=== PATIENT | male | born 1970 | race Caucasian/White ===

== ENCOUNTER 2018-08-16 23:36 | Emergency (ER) | payer SELFPAY ==
[~2018-08-16] VITALS: Ht 188 cm; Wt 62.1 kg
--- OUTSIDE RECORDS SUMMARY | 2018-08-16 23:41 | XMS REPORT | CCD ---
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 Problems Unknown or Not Available. Procedures Unknown or Not Available. Results Unknown or Not Available. Encounters Encounter Diagnosis Diagnosis Code Start Date Essential (primary) hypertension I10 08/15/2016 Function Status Unknown or Not Available. History of Immunizations Unknown or Not Available. Plan of Treatment Unknown or Not Available. Social History Smoking Status Code Start Date End Date Current every day smoker [id number] Vital Signs Unknown or Not Available. Function Status Unknown or Not Available. Goals Unknown or Not Available. ASSESSMENTS Unknown or Not Available. Health Concerns Section Unknown or Not Available.
--- OUTSIDE RECORDS SUMMARY | 2018-08-16 23:41 | XMS REPORT | Continuity of Care Document ---
Author Author [facility] Organization [facility] Address Unknown Phone Unavailable Allergies There is no data. Medications There is no data. Problems There is no data. Procedures There is no data. Results There is no data. Encounters ACCT No. Visit Date/Time Discharge Status Pt. Type Provider Facility Loc./Unit Complaint [id number] 08/20/2014 16:13:46 08/20/2014 23:59:59 [facility] Outpatient Lorena Schreiber [id number] 10/28/2013 09:29:07 10/28/2013 23:59:59 [facility] Outpatient Lorena Schreiber [id number] 07/29/2018 15:40:00 07/29/2018 23:59:59 [facility] Outpatient [facility]
[2018-08-17] MEDS ORDERED: OLANZapine 5 MG ODT (ZyPREXA ZYDIS) PO ONE (00:15)
--- NOTE | 2018-08-17 00:22 | NUR ---
Patient presented to the ER tonjose with a laceration to the forhead as well as the left wrist. During the patients initial assessment he advised that he has a significant psychiatric history and was admitted in september for intense inpatient psychiatric care. He advised that he has been admitted several times over the years and has had approximately 10 significant suicidal attempts. He advised nursing staff that he has an appointment scheduled on September 03 at [facility] in [place] for evaluation and further medication management. He advised he was originally scheduled to be seen prior to this date but that his appointment was pushed back and that he has been without his medication for approximately 1-2 weeks. He advised that he has been taught previous copeing mechanisms but that they have been ineffective and that he has been experiencing hallucinations. The patient presents dishevled and unkempt and is tearful while he is explaining his current state. He advised that he is visualizing people looking at him from around corners. He advises that the people tell him things about them and that they are emobotic regrets. He advises that they are sometimes happy to see him but tonight they were angry with him and that sometimes they throw things at him and attempt to harm him. The patient is currently staying with close friends who have remained at the bedside with him since arrival to the ER. They advised when they came home this evening that they found him with the laceration to his head and wrist. They advise that they found a knife in the bathroom and state he advised them that he was scared. The patient states that yesterday he was walking home at night and became lost as he was experiencing hallucinations at that time. He advised when he did find the residence that he was afraid to go inside because he was afraid the people he has been visualizing would harm him. When asked if the patient was having thoughts of killing himself he advised that Saturday he had had thoughts of ending his life but fell asleep and awoke feeling better. When asked if he had a plan he advised that he has always had a plan for years. He advised he considered taking several oxycotin in a hotel room but that he carried a razor blade on his person for approximately 4 days until his friends found it and removed it from his person. He advised that ultimately he knew the way he would have to do it would be to unzip his arms. The patient explained to his close friend in the room that he had periods where they made him feel better and that he did not wish to but that he is tired of being afraid. He advised that he has been struggling with his weight and that he has a history of anorexia and is unsure of the last time he ate.
[2018-08-17] MEDS ORDERED: LIDOCAINE 1% INJ 20 ML 20 ML VIAL ONE (00:24)
--- NOTE | 2018-08-17 00:24 | NUR ---
Patients close friend is Leticia Yan. He states she is the power of estate planning attorney for him. Her contact information is [phone].
[2018-08-17 00:25] LABS: BASOPHILS % (AUTO) 0 % (0-10); EOSINOPHILS % (AUTO) 0 % (0-10); HEMATOCRIT 42 % (40-54); HEMOGLOBIN 14.1 G/DL (13.3-17.7); LYMPHOCYTES # (AUTO) 1.1 X 10^3 (1.0-4.0); LYMPHOCYTES % (AUTO) 9 % (12-44); MEAN CORPUSCULAR HEMOGLOBIN 30 PG (25-34); MEAN CORPUSCULAR HGB CONC 34 G/DL (32-36); MEAN CORPUSCULAR VOLUME 90 FL (80-99); MEAN PLATELET VOLUME 8.2 FL (7.4-10.4); MONOCYTES # (AUTO) 0.9 X 10^3 (0.0-1.0); MONOCYTES % (AUTO) 8 % (0-12); NEUTROPHILS # (AUTO) 9.3 X 10^3 (1.8-7.8); NEUTROPHILS % (AUTO) 83 % (42-75); PLATELET COUNT 386 10^3/uL (130-400); WHITE BLOOD COUNT 11.3 10^3/uL (4.3-11.0)
--- NOTE | 2018-08-17 00:30 | NUR ---
The patient was provided a meal tray and advises the medication administration has helped. The patient appears to be more relaxed.
[2018-08-17 00:45] LABS: ALANINE AMINOTRANSFERASE 35 U/L (0-55); ALBUMIN 5.1 GM/DL (3.2-4.5); ALKALINE PHOSPHATASE 93 U/L (40-136); BILIRUBIN,TOTAL 1.6 MG/DL (0.1-1.0); BUN/CREATININE RATIO 29; CALCIUM 10.9 MG/DL (8.5-10.1); CARBON DIOXIDE 23 MMOL/L (21-32); CHLORIDE 102 MMOL/L (98-107); CREATININE SERUM 0.99 MG/DL (0.60-1.30); GFR ESTIMATED > 60; GLUCOSE 69 MG/DL (70-105); POTASSIUM 3.7 MMOL/L (3.6-5.0); SALICYLATE < 5.0 MG/DL (5.0-20.0); SODIUM 140 MMOL/L (135-145); TOTAL PROTEIN 8.5 GM/DL (6.4-8.2)
[2018-08-17 00:59] LABS: ACETAMINOPHEN < 10 UG/ML (10-30)
[2018-08-17 01:03] LABS: BILIRUBIN,URINE NEGATIVE (NEGATIVE); CLARITY,URINE SLIGHTLY CLOUDY; COLOR,URINE YELLOW; GLUCOSE, URINE (UA) NEGATIVE (NEGATIVE); KETONES,URINE 4+ (NEGATIVE); LEUKOCYTE ESTERASE ,URINE 2+ (NEGATIVE); NITRITE,URINE NEGATIVE (NEGATIVE); PH,URINE 5 (5-9); PROTEIN,URINE 3+ (NEGATIVE); UROBILINOGEN,URINE NORMAL (NORMAL)
[2018-08-17 01:05] LABS: TSH (THYROID ANALYZER) 1.63 UIU/ML (0.35-4.94)
--- NOTE | 2018-08-17 01:07 | ED Psychosocial ---
General Chief Complaint: Suicidal Ideation Risk Stated Complaint: FACE BLEEDING Nursing Triage Note: Patient presented to the ER secondary to a wound to his forhead as well as his left wrist. See notes for further documentation. Source: patient (PT IS LIMITED/DIFFICULT HISTORIAN), other (FEMALE WITH PT) Exam Limitations: other (PT WITH RAPID ERRATIC SPEECH AND HAVING DIFFICULTY FORMING THOUGHTS AND COMPLETING SENTENCES) History of Present Illness Date Seen by Provider: Aug 16, 2018 Time Seen by Provider: 23:55 Initial Comments PT ARRIVES VIA POV FROM HOME WITH FEMALE PT HAS BEEN LIVING WITH THIS FEMALE AND HER FAMILY, INCLUDING HER SMALL CHILDREN , SINCE APRIL. PRIOR TO THAT, PT HAD BEEN LIVING IN [place] PT STATES HE HAD "A PARANORMAL EXPERIENCE" TODAY "I HAVE BIPOLAR DISORDER AND I HAD A BREAK AND I'M DISSOCIATED" PT HAS LINEAR LACERATIONS TO CENTER OF FOREHEAD AND TO LEFT WRIST. WHEN ASKED WHAT HAPPENED, PT STATES "GOT HIT BY SOMETHING" "ONE OF THE THINGS THREW A POT BUT I KNOW THAT THEY AREN'T REAL SO I DON'T KNOW WHAT HAPPENED" WHEN ASKED WHAT HAPPENED TO HIS WRIST, FIRST STARTED TO TALK ABOUT A PIECE OF MIRROR IN THE BATHROOM, THEN STATES HE DOES NOT KNOW WHAT HAPPENED. FEMALE WITH PT, REPORTS THAT HER FAMILY MEMBER FOUND A KNIFE IN THE BATHROOM. PT FIRST ADMITS THAT HE KNEW THERE WAS A KNIFE IN THE BATHROOM, BECAUSE "THEY WERE AFTER ME" AND STATES HE DOESN'T KNOW WHAT HAPPENED, BUT THEN STATES "I REMEMBER NOT WANTING TO BE SCARED ANYMORE" PT STATES "I'M NOT A THREAT TO MYSELF ANYMORE" PT STATES HE HAS HAD "10 SERIOUS ATTEMPTS" TO KILL HIMSELF, MOST INVOLVING OVERDOSES, BUT HAS CUT HIS WRISTS BEFORE, WELL. HE STATES HE HAS HAD " HALF A DOZEN LESS SERIOUS ATTEMPTS--I JUST DIDN'T CARE IF I LIVED OR " STATES HE HAS CONSTANT SUICIDAL THOUGHTS, BUT HAS NOT ACTED ON THEM IN A LONG TIME. STATES HE WAS HAVING ALOT OF SUICIDAL THOUGHTS THIS PAST SATURDAY, BUT DID NOT ACT ON THEM LAST ADMIT FOR MENTAL HEALTH WAS IN SEPTEMBER 2017. AT [facility]. 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 STATES HE HAS MISSED SEVERAL APPOINTMENTS, AND THEY DID EXTEND HIM A COUPLE WEEKS OF MEDICATIONS, BUT HE RAN OUT OF THOSE 2 WEEKS AGO. PT STATES HE HAS A NEW PT APPOINTMENT WITH PSYCH AT [facility] ON 09/03/18. PT ALSO STATES HE IS ANOREXIC AND SOMETIMES HE JUST FORGETS TO EAT, OR HAS FORGOTTEN IF HE HAS EATEN OR NOT. PCP: NONE PSYCH: HAS APPOINTMENT WITH [facility] 09/03/18 Allergies and Home Medications Allergies Coded Allergies: pregabalin (Verified Allergy, Unknown, 08/17/18) Patient Home Medication List Home Medication List Reviewed: Yes Review of Systems Constitutional: no symptoms reported EENTM: see HPI Respiratory: no symptoms reported Cardiovascular: no symptoms reported Gastrointestinal: no symptoms reported Genitourinary: no symptoms reported Musculoskeletal: no symptoms reported Skin: see HPI Psychiatric/Neurological: See HPI, Anxiety; Denies Headache, Denies Numbness, Denies Paresthesia, Denies Tingling, Denies Weakness Past Kbyufux-Olmssh-Issnto Hx Patient Social History Alcohol Use: Past History (HX OF ABUSE--"ALOT" --WILL NOT STATE HOW MUCH, CLAIMS NO ETOH SINCE 02/2018) Recreational Drug Use: Yes (METH, "EVERYTHING EXCEPT OPIATES" + IV USE) Drug of Choice: METH, "EVERYTHING EXCEPT OPIATES" + IV USE Smoking Status: Current Everyday Smoker (1 PPD) Recent Foreign Travel: No Contact w/Someone Who Travel: No Recent Infectious Disease Expo: No Recent Hopitalizations: Yes (inpatient psychiatric in september 2017 ) Physical Abuse: No Sexual Abuse: No Seasonal Allergies Seasonal Allergies: No Past Medical History Surgeries: Yes (LEFT LOWER LEG FX/ORIF) Adenoidectomy, Orthopedic, Tonsillectomy Respiratory: No Cardiac: Yes (NO LONGER ON MEDICATIONS) Hypertension Neurological: Yes (SEIZURES X 3--FELT TO BE FROM DRUG WITH DRAWL--DEPAKOTE, PER PT) Seizure Disorder Genitourinary: No Gastrointestinal: No Musculoskeletal: Yes (LEFT LOWER LEG FX/ORIF) Fractures Endocrine: No HEENT: No Cancer: No Psychosocial: Yes (HALLUCINATIONS; BORDERLINE PERSONALITY DISORDER; ANOREXIA; POLYSUBSTANCE ABUSE) Eating Disorder, Anxiety, Suicide Attempts, Bipolar, Personality Disorder Integumentary: No Blood Disorders: No Adverse Reaction/Blood Tranf: No Physical Exam Vital Signs - First Documented 08/17/18 00:22 Temp 97.5 Pulse 108 Resp 18 B/P (MAP) 154/88 (110) Pulse Ox 99 O2 Delivery Room Air Capillary Refill : Less Than 3 Seconds Height, Weight, BMI Height: 6'2.00" Weight: 137lbs. oz. 62.623940ud; BMI Method:Stated General Appearance: WD/WN, no apparent distress, other (MILDLY ANXIOUS. TALKS RAPIDLY, NON-STOP, RABLES ON, DISCONNECTED THOUGHTS, UNABLE TO COMPLETE SENTENCES. UNABLE TO KEEP ON SUBJECT. 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 HAS MULTIPLE LINEAR SCARS TO LEFT ANTERIOR WRIST. ) Procedures/Interventions Wound Location: Face, Upper Extremities Other Wound Location FOREHEAD AND LEFT WRIST Wound Length (cm): 3.5 Wound's Depth, Shape: linear, sub Q Wound Explored: clean Anesthesia: 1% Lidocaine Staple Repair: Stapler 35W Other Closure Supply: Wound Adhesive Progress LACERATIONS CLEANSED WITH BETASEPT FOREHEAD LACERATION IS VERTICAL IN CENTER OF FOREHEAD. 2 CM LONG. NO ACTIVE BLEEDING. NO FOREIGN BODY CLOSED WITH WOUND ADHESIVE LEFT ANTERIOR WRIST LACERATION IS LINEAR AND VERTICAL, 1 1/2 CM LONG. NO ACTIVE BLEEDING. NO FOREIGN BODY INJECTED WITH 1% LIDOCAINE PLAIN CLOSED WITH # 3 ISAIAS DRESSED WITH A BANDAID. Progress/Results/Core Measures Results/Orders Lab Results Laboratory Tests Test 08/17/18 00:17 08/17/18 00:55 Range/Units White Blood Count 11.3 H 4.3-11.0 10^3/uL Red Blood Count 4.65 4.35-5.85 10^6/uL Hemoglobin 14.1 13.3-17.7 G/DL Hematocrit 42 40-54 % Mean Corpuscular Volume 90 80-99 FL Mean Corpuscular Hemoglobin 30 25-34 PG Mean Corpuscular Hemoglobin Concent 34 32-36 G/DL Red Cell Distribution Width 14.0 10.0-14.5 % Platelet Count 386 130-400 10^3/uL Mean Platelet Volume 8.2 7.4-10.4 FL Neutrophils (%) (Auto) 83 H 42-75 % Lymphocytes (%) (Auto) 9 L 12-44 % Monocytes (%) (Auto) 8 0-12 % Eosinophils (%) (Auto) 0 0-10 % Basophils (%) (Auto) 0 0-10 % Neutrophils # (Auto) 9.3 H 1.8-7.8 X 10^3 Lymphocytes # (Auto) 1.1 1.0-4.0 X 10^3 Monocytes # (Auto) 0.9 0.0-1.0 X 10^3 Eosinophils # (Auto) 0.0 0.0-0.3 10^3/uL Basophils # (Auto) 0.0 0.0-0.1 10^3/uL Sodium Level 140 135-145 MMOL/L Potassium Level 3.7 3.6-5.0 MMOL/L Chloride Level 102 98-107 MMOL/L Carbon Dioxide Level 23 21-32 MMOL/L Anion Gap 15 H 5-14 MMOL/L Blood Urea Nitrogen 29 H 7-18 MG/DL Creatinine 0.99 0.60-1.30 MG/DL Estimat Glomerular Filtration Rate > 60 BUN/Creatinine Ratio 29 Glucose Level 69 L 70-105 MG/DL Calcium Level 10.9 H 8.5-10.1 MG/DL Corrected Calcium 8.5-10.1 MG/DL Total Bilirubin 1.6 H 0.1-1.0 MG/DL Aspartate Amino Transf (AST/SGOT) 44 H 5-34 U/L Alanine Aminotransferase (ALT/SGPT) 35 0-55 U/L Alkaline Phosphatase 93 40-136 U/L Total Protein 8.5 H 6.4-8.2 GM/DL Albumin 5.1 H 3.2-4.5 GM/DL TSH [place] Testing 1.63 0.35-4.94 UIU/ML Salicylates Level < 5.0 L 5.0-20.0 MG/DL Acetaminophen Level < 10 L 10-30 UG/ML Serum Alcohol < 10 <10 MG/DL Urine Color YELLOW Urine Clarity SLIGHTLY CLOUDY Urine pH 5 5-[address] 1.030 H 1.016-1.022 Urine Protein 3+ H NEGATIVE Urine Glucose (UA) NEGATIVE NEGATIVE Urine Ketones 4+ H NEGATIVE Urine Nitrite NEGATIVE NEGATIVE Urine Bilirubin NEGATIVE NEGATIVE Urine Urobilinogen NORMAL NORMAL MG/DL Urine Leukocyte Esterase 2+ H NEGATIVE Urine RBC (Auto) 2+ H NEGATIVE Urine RBC 2-5 H /HPF Urine WBC 25-50 H /HPF Urine Squamous Epithelial Cells 0-2 /HPF Urine Crystals NONE /LPF Urine Bacteria MODERATE H /HPF Urine Casts PRESENT /LPF Urine Hyaline Casts 2-5 H /LPF Urine Mucus LARGE H /LPF Urine Culture Indicated YES Urine Opiates Screen NEGATIVE NEGATIVE Urine Oxycodone Screen NEGATIVE NEGATIVE Urine Methadone Screen NEGATIVE NEGATIVE Urine Propoxyphene Screen NEGATIVE NEGATIVE Urine Barbiturates Screen NEGATIVE NEGATIVE Ur Tricyclic Antidepressants Screen NEGATIVE NEGATIVE Urine Phencyclidine Screen NEGATIVE NEGATIVE Urine Amphetamines Screen POSITIVE H NEGATIVE Urine Methamphetamines Screen POSITIVE H NEGATIVE Urine Benzodiazepines Screen NEGATIVE NEGATIVE Urine Cocaine Screen NEGATIVE NEGATIVE Urine Cannabinoids Screen NEGATIVE NEGATIVE My Orders Orders - REGINA GOLDSMITH DO Urinalysis (08/17/18 00:08) Thyroid Analyzer (08/17/18 00:08) Drug Screen Stat (Urine) (08/17/18 00:08) Cbc With Automated Diff (08/17/18 00:08) Comprehensive Metabolic Panel (08/17/18 00:08) Alcohol (08/17/18 00:08) Acetaminophen (08/17/18 00:08) Salicylate (08/17/18 00:08) Ekg Tracing (08/17/18 00:08) Olanzapine Orally Dissolve Tab (Zyprexa (08/17/18 00:15) Lidocaine 1% Inj 20 Ml (Xylocaine 1% Inj (08/17/18 00:24) Urine Culture (08/17/18 00:55) Levofloxacin Tablet (Levaquin Tablet) (08/17/18 02:00) Chlamydia Trachomatis Urine (08/17/18 01:53) Neis Jourdan Dna Urine Test (08/17/18 01:53) Medications Given in ED Current Medications Medications Dose Ordered Sig/Noe Route Start Time Stop Time Status Last Admin Dose Admin Levofloxacin 500 mg ONCE ONCE PO 08/17/18 02:00 08/17/18 02:01 UNV 08/17/18 02:03 500 MG Lidocaine HCl 20 ml STK-MED ONCE .ROUTE 08/17/18 00:24 08/17/18 00:28 DC 08/17/18 01:09 20 ML Olanzapine 10 mg ONCE ONCE PO 08/17/18 00:15 08/17/18 00:18 DC 08/17/18 00:19 10 MG Vital Signs/I&O 08/17/18 00:22 Temp 97.5 Pulse 108 Resp 18 B/P (MAP) 154/88 (110) Pulse Ox 99 O2 Delivery Room Air Blood Pressure Mean: 110 Progress Progress Note : Progress Note GIVEN ZYPREXA 10 MG--PT STATES " IT WILL WORK PERFECTLY IN 20 MINUTES AND HE WILL BE FINE". PT REMAINED COOPERATIVE, WITH NO ACTING OUT PT DID HAVE SOME IMPROVEMENT IN ABILITY TO COMPLETE THOUGHT PROCESSES, ABLE TO COMPLETE SENTENCES, SPEECH IS LESS ERRATIC, AND DID NOT MENTION ANY HALLUCINATIONS FOR REMAINDER OF ER STAY PT IS AGREEABLE TO TRANSFER TO INPATIENT PSYCH FACILITY. PT GIVEN FLUIDS TO DRINK AND A MEAL TRAY Initial ECG Impression Date: Aug 17, 2018 Initial ECG Impression Time: 00:26 Initial ECG Rate: 92 Initial ECG Rhythm: Normal Sinus Initial ECG Comparisson: No Previous ECG Available Departure Communication (Admissions) 0130--CALLED [facility]. THEY DO NOT TAKE ACUTE MENTAL HEALTH, ONLY LONG-TERM MENTAL HEALTH. 0135--CALLED [facility], HAVE A MALE MENTAL HEALTH BED, PAGING PSYCHIATRIST GRANTS ANALYST. Impression Primary Impression: Psychosis Additional Impressions: Hallucinations Jane FOREHEAD LACERATION OF UNKNOWN CAUSE LEFT WRIST LACERATION OF UNKNOWN CAUSE CHRONIC SUICIDAL IDEATION Non-compliance Illicit drug use Self-harm UTI (urinary tract infection) Mild dehydration Disposition: 65 XFER TO PSYCH HOSP/UNIT Condition: Stable Transfer Transfer Facility: [facility] Method of Transfer: Private Vehicle (Way[employer]) Departure-Patient Inst. Referrals: NO,LOCAL PHYSICIAN (PCP/Family) Primary Care Physician REGINA GOLDSMITH DO Aug 17, 2018 01:07
[2018-08-17 01:12] LABS: BACTERIA,URINE MODERATE /HPF; SQUAMOUS EPITHELIAL CELL,UR 0-2 /HPF; WBC,URINE 25-50 /HPF
[2018-08-17 01:14] LABS: AMPHETAMINE SCREEN, URINE POSITIVE (NEGATIVE); BARBITURATE SCREEN URINE NEGATIVE (NEGATIVE); BENZODIAZEPINES SCREEN URINE NEGATIVE (NEGATIVE); CANNABINOID SCREEN, URINE NEGATIVE (NEGATIVE); COCAINE SCREEN URINE NEGATIVE (NEGATIVE); METHADONE STAT NEGATIVE (NEGATIVE); METHAMPHETAMINE SCREEN URINE S POSITIVE (NEGATIVE); OPIATE SCREEN URINE NEGATIVE (NEGATIVE); OXYCODONE STAT NEGATIVE (NEGATIVE); PROPOXYPHENE STAT NEGATIVE (NEGATIVE); TRICYCLIC ANTIDEPRESSANTS SCRE NEGATIVE (NEGATIVE)
[2018-08-17] MEDS ORDERED: LEVOFLOXACIN 500 MG TAB (LEVAQUIN) ONE (02:00)
[2018-08-17] MEDS ORDERED: LEVOFLOXACIN 500 MG TAB (LEVAQUIN) PO ONE (02:00)
--- NOTE | 2018-08-17 02:33 | NUR ---
Secure transported arrival to the ER.
[2018-08-17 02:44] VITALS: BP 123/78
== END 2018-08-17 02:45 ==
LOC: EDUNIT# 23:36 → ER 23:39
DX: S01.81XA Laceration without foreign body of other part of head, initial encounter (principal); S61.512A Laceration without foreign body of left wrist, initial encounter; F30.9 Manic episode, unspecified; R45.851 Suicidal ideations; N39.0 Urinary tract infection, site not specified; E86.0 Dehydration; I10 Essential (primary) hypertension; G40.909 Epilepsy, unspecified, not intractable, without status epilepticus; F41.9 Anxiety disorder, unspecified; F31.9 Bipolar disorder, unspecified; F15.10 Other stimulant abuse, uncomplicated; F12.10 Cannabis abuse, uncomplicated; F17.200 Nicotine dependence, unspecified, uncomplicated; Z91.5 Personal history of self-harm; Z88.8 Allergy status to other drugs, medicaments and biological substances; Z91.19 Patient's noncompliance with other medical treatment and regimen; Z90.89 Acquired absence of other organs; Z98.890 Other specified postprocedural states; W22.09XA Striking against other stationary object, initial encounter; X78.1XXA Intentional self-harm by knife, initial encounter
CPT/HCPCS: 36415; 80053; 80306; 80320; 80329; 81000; 84443; 85025; 87088; 87491; 87591; 93005

== ENCOUNTER 2019-12-31 05:42 | Outpatient (RCR) | payer OTHER ==
[~2019-12-31] VITALS: Ht 188 cm; Wt 76.8 kg
[~2019-12-31 05:42] MED LIST: ACET-2267 PO; DIPH25CA79 PO; OLAN10TA3 PO; PANT40SU PO; SUCR1TAB PO
[2020-01-05] MEDS ORDERED: SUCR1TAB36 PO (10:39)
[2020-01-05] MEDS ORDERED: PANT40TA2 PO (10:39)
== END 2019-12-31 15:05 | disposition home or self-care (01) ==
LOC: PREOP 05:42
PROVIDERS: ATTEND Surgery
DX: Z01.812 Encounter for preprocedural laboratory examination (principal); K92.1 Melena; Z20.828 Contact with and (suspected) exposure to other viral communicable diseases
CPT/HCPCS: 87635

== ENCOUNTER 2020-01-05 07:57 | Day surgery (SDC) | payer OTHER ==
[~2020-01-05] VITALS: Ht 188 cm; Wt 76.8 kg
[2020-01-05 08:00] VITALS: BP 145/98
[2020-01-05] MEDS ORDERED: LACTATED RINGERS 1,000 ML IV STA (08:07)
[2020-01-05] MEDS ORDERED: LACTATED RINGERS 1,000 ML IV ONE (08:08)
--- NOTE | 2020-01-05 08:16 | Progress Note-Pre Operative ---
Pre-Operative Progress Note H&P Reviewed The H&P was reviewed, patient examined and no changes noted. Date Seen by Provider: Jan 05, 2020 Time Seen by Provider: 08:16 Date H&P Reviewed: Jan 05, 2020 Time H&P Reviewed: 08:16 Pre-Operative Diagnosis: blood in stool, dysphagia TORO MATHIS DO Jan 05, 2020 08:16
--- OUTSIDE RECORDS SUMMARY | 2020-01-05 08:57 | XMS REPORT | Continuity of Care Document ---
Author Organization Unknown Address Unknown Phone Unavailable Allergies Active Description Code Type Severity Reaction Onset Reported/Identified Relationship to Patient Clinical Status Yes pregabalin [id number] Drug Allerg y Unknown N/A 08/17/2018 Yes codeine [id number] Drug Allergy Unknown Itching 10/29/2019 Yes Sulfa (Sulfonamide Antibiotics) [id number] Drug Allergy Unknown Vomiting 10/29/2019 Medications There is no data. Problems Date Dx Coded Attending Type Code Diagnosis Diagnosed By 06/20/1504 TORO MATHIS DO Ot K92. 1 MELENA 06/20/1504 TORO MATHIS DO Ot Z01.812 ENCOUNTER FOR PREPROCEDURAL LABORATORY E 06/20/1504 TORO MATHIS DO Ot Z20.828 CONTACT W AND EXPOSURE TO OTH VIRAL COMM 08/17/2018 REGINA GOLDSMITH DO Ot E86.0 DEHYDRATION 08/17/2018 REGINA GOLDSMITH DO Ot F12.10 CANNABIS ABUSE, UNCOMPLICATED 08/17/2018 REGINA GOLDSMITH DO Ot F15.10 OTHER STIMULANT ABUSE, UNCOMPLICATED 08/17/2018 REGINA GOLDSMITH DO Ot F17.200 NICOTINE DEPENDENCE, UNSPECIFIED, UNCOMP 08/17/2018 REGINA GOLDSMITH DO Ot F30.9 MANIC EPISODE, UNSPECIFIED 08/17/2018 REGINA GOLDSMITH DO Ot F31.9 BIPOLAR DISORDER, UNSPECIFIED 08/17/2018 REGINA GOLDSMITH DO Ot F41.9 ANXIETY DISORDER, UNSPECIFIED 08/17/2018 REGINA GOLDSMITH DO Ot G40.909 EPILEPSY, UNSP, NOT INTRACTABLE, WITHOUT 08/17/2018 REGINA GOLDSMITH DO Ot I10 ESSENTIAL (PRIMARY) HYPERTENSION 08/17/2018 REGINA GOLDSMITH DO Ot N39.0 URINARY TRACT INFECTION, SITE NOT SPECIF 08/17/2018 REGINA GOLDSMITH DO Ot R45.851 SUICIDAL IDEATIONS 08/17/2018 REGINA GOLDSMITH DO Ot S01.81X A LACERATION W/O FOREIGN BODY OF OTH PART 08/17/2018 REGINA GOLDSMITH DO Ot S61.512 A LACERATION WITHOUT FOREIGN BODY OF LEFT 08/17/2018 REGINA GOLDSMITH DO Ot W22.09X A STRIKING AGAINST OTHER STATIONARY OBJECT 08/17/2018 REGINA GOLDSMITH DO Ot X78.1XX A INTENTIONAL SELF-HARM BY KNIFE, INITIAL 08/17/2018 REGINA GOLDSMITH DO, Ot Z88.8 ALLERGY STATUS TO OT DRUG/MEDS/BIOL SUB 08/17/2018 REGINA GOLDSMITH DO Ot Z90.89 ACQUIRED ABSENCE OF OTHER ORGANS 08/17/2018 REGINA GOLDSMITH DO Ot Z91.19 PATIENT'S NONCOMPLIANCE W OT MEDICAL TR 08/17/2018 REGINA GOLDSMITH DO, Ot Z91.5 PERSONAL HISTORY OF SELF-HARM 08/17/2018 REGINA GOLDSMITH DO, Ot Z98.890 OTHER SPECIFIED POSTPROCEDURAL STATES 08/19/2018 REGINA GOLDSMITH DO Ot E86.0 DEHYDRATION 08/19/2018 REGINA GOLDSMITH DO Ot F12.10 CANNABIS ABUSE, UNCOMPLICATED 08/19/2018 REGINA GOLDSMITH DO Ot F15.10 OTHER STIMULANT ABUSE, UNCOMPLICATED 08/19/2018 REGINA GOLDSMITH DO Ot F17.200 NICOTINE DEPENDENCE, UNSPECIFIED, UNCOMP 08/19/2018 REGINA GOLDSMITH DO Ot F30.9 MANIC EPISODE, UNSPECIFIED 08/19/2018 REGINA GOLDSMITH DO Ot F31.9 BIPOLAR DISORDER, UNSPECIFIED 08/19/2018 AGUS REGINA JACKSON Ot F41.9 ANXIETY DISORDER, UNSPECIFIED 08/19/2018 REGINA GOLDSMITH DO Ot G40.909 EPILEPSY, UNSP, NOT INTRACTABLE, WITHOUT 08/19/2018 REGINA GOLDSMITH DO Ot I10 ESSENTIAL (PRIMARY) HYPERTENSION 08/19/2018 REGINA GOLDSMITH DO Ot N39.0 URINARY TRACT INFECTION, SITE NOT SPECIF 08/19/2018 REGINA GOLDSMITH DO Ot R45.851 SUICIDAL IDEATIONS 08/19/2018 REGINA GOLDSMITH DO Ot S01.81X A LACERATION W/O FOREIGN BODY OF OTH PART 08/19/2018 REGINA GOLDSMITH DO Ot S61.512 A LACERATION WITHOUT FOREIGN BODY OF LEFT 08/19/2018 REGINA GOLDSMITH DO Ot W22.09X A STRIKING AGAINST OTHER STATIONARY OBJECT 08/19/2018 REGINA GOLDSMITH DO Ot X78.1XX A INTENTIONAL SELF-HARM BY KNIFE, INITIAL 08/19/2018 REGINA GOLDSMITH DO Ot Z88.8 ALLERGY STATUS TO [facility] DRUG/MEDS/BIOL SUB 08/19/2018 REGINA GOLDSMITH DO Ot Z90.89 ACQUIRED ABSENCE OF OTHER ORGANS 08/19/2018 REGINA GOLDSMITH DO Ot Z91.19 PATIENT'S NONCOMPLIANCE W OT MEDICAL TR 08/19/2018 REGINA GOLDSMITH DO Ot Z91.5 PERSONAL HISTORY OF SELF-HARM 08/19/2018 REGINA GOLDSMITH DO Ot Z98.890 OTHER SPECIFIED POSTPROCEDURAL STATES 10/30/2019 HERNÁNDEZ DO, NAVID Ot D64.9 ANEMIA, UNSPECIFIED 10/30/2019 HERNÁNDEZ DO, NAVID Ot D72.82 9 ELEVATED WHITE BLOOD CELL COUNT, UNSPECI 10/30/2019 HERNÁNDEZ DO, NAVID Ot F17.20 0 NICOTINE DEPENDENCE, UNSPECIFIED, UNCOMP 10/30/2019 HERNÁNDEZ DO, NAVID Ot F31.9 BIPOLAR DISORDER, UNSPECIFIED 10/30/2019 HERNÁNDEZ DO, NAVID Ot F41.9 ANXIETY DISORDER, UNSPECIFIED 10/30/2019 HERNÁNDEZ DO, NAVID Ot F50.9 EATING DISORDER, UNSPECIFIED 10/30/2019 HERNÁNDEZ DO, NAVID Ot F60.9 PERSONALITY DISORDER, UNSPECIFIED 10/30/2019 HERNÁNDEZ DO, NAVID Ot G40.90 9 EPILEPSY, UNSP, NOT INTRACTABLE, WITHOUT 10/30/2019 HERNÁNDEZ DO, NAVID Ot I10 ESSENTIAL (PRIMARY) HYPERTENSION 10/30/2019 HERNÁNDEZ DO, NAVID Ot I21.4 NON-ST ELEVATION (NSTEMI) MYOCARDIAL INF 10/30/2019 HERNÁNDEZ DO, NAVID Ot K20.9 ESOPHAGITIS, UNSPECIFIED 10/30/2019 HERNÁNDEZ DO, NAVID Ot K92.0 HEMATEMESIS 10/30/2019 HERNÁNDEZ DO, NAVID Ot K92.2 GASTROINTESTINAL HEMORRHAGE, UNSPECIFIED 10/30/2019 HERNÁNDEZ DO, NAVID Ot R10.9 UNSPECIFIED ABDOMINAL PAIN 10/30/2019 HERNÁNDEZ DO, NAVID Ot R11.2 NAUSEA WITH VOMITING, UNSPECIFIED 10/30/2019 HERNÁNDEZ DO, NAVID Ot R12 HEARTBURN 10/30/2019 HERNÁNDEZ DO, NAVID Ot Z86.59 PERSONAL HISTORY OF OTHER MENTAL AND BEH 10/30/2019 HERNÁNDEZ DO, NAVID Ot Z91.5 PERSONAL HISTORY OF SELF-HARM 10/30/2019 HERNÁNDEZ DO, NAVID Ot D64.9 ANEMIA, UNSPECIFIED 10/30/2019 HERNÁNDEZ DO, NAVID Ot D72.82 9 ELEVATED WHITE BLOOD CELL COUNT, UNSPECI 10/30/2019 HERNÁNDEZ DO, NAVID Ot F17.20 0 NICOTINE DEPENDENCE, UNSPECIFIED, UNCOMP 10/30/2019 HERNÁNDEZ DO, NAVID Ot F31.9 BIPOLAR DISORDER, UNSPECIFIED 10/30/2019 HERNÁNDEZ DO, NAVID Ot F41.9 ANXIETY DISORDER, UNSPECIFIED 10/30/2019 HERNÁNDEZ DO, NAVID Ot F50.9 EATING DISORDER, UNSPECIFIED 10/30/2019 HERNÁNDEZ DO, NAVID Ot F60.9 PERSONALITY DISORDER, UNSPECIFIED 10/30/2019 HERNÁNDEZ DO, NAVID Ot G40.90 9 EPILEPSY, UNSP, NOT INTRACTABLE, WITHOUT 10/30/2019 HERNÁNDEZ DO, NAVID Ot I10 ESSENTIAL (PRIMARY) HYPERTENSION 10/30/2019 HERNÁNDEZ DO, NAVID Ot I21.4 NON-ST ELEVATION (NSTEMI) MYOCARDIAL INF 10/30/2019 HERNÁNDEZ DO, NAVID Ot K20.9 ESOPHAGITIS, UNSPECIFIED 10/30/2019 HERNÁNDEZ DO, NAVID Ot K92.0 HEMATEMESIS 10/30/2019 HERNÁNDEZ DO, NAVID Ot K92.2 GASTROINTESTINAL HEMORRHAGE, UNSPECIFIED 10/30/2019 HERNÁNDEZ DO, NAVID Ot R10.9 UNSPECIFIED ABDOMINAL PAIN 10/30/2019 HERNÁNDEZ DO, NAVID Ot R11.2 NAUSEA WITH VOMITING, UNSPECIFIED 10/30/2019 HERNÁNDEZ DO, NAVID Ot R12 HEARTBURN 10/30/2019 HERNÁNDEZ DO, NAVID Ot Z86.59 PERSONAL HISTORY OF OTHER MENTAL AND BEH 10/30/2019 HERNÁNDEZ DO, NAVID Ot Z91.5 PERSONAL HISTORY OF SELF-HARM 10/30/2019 HERNÁNDEZ DO, NAVID Ot D64.9 ANEMIA, UNSPECIFIED 10/30/2019 HERNÁNDEZ DO, NAVID Ot D72.82 9 ELEVATED WHITE BLOOD CELL COUNT, UNSPECI 10/30/2019 HERNÁNDEZ DO, NAVID Ot F17.20 0 NICOTINE DEPENDENCE, UNSPECIFIED, UNCOMP 10/30/2019 HERNÁNDEZ DO, NAVID Ot F31.9 BIPOLAR DISORDER, UNSPECIFIED 10/30/2019 HERNÁNDEZ DO, NAVID Ot F41.9 ANXIETY DISORDER, UNSPECIFIED 10/30/2019 HERNÁNDEZ DO, NAVID Ot F50.9 EATING DISORDER, UNSPECIFIED 10/30/2019 HERNÁNDEZ DO, NAVID Ot F60.9 PERSONALITY DISORDER, UNSPECIFIED 10/30/2019 HERNÁNDEZ DO, NAVID Ot G40.90 9 EPILEPSY, UNSP, NOT INTRACTABLE, WITHOUT 10/30/2019 HERNÁNDEZ DO, NAVID Ot I10 ESSENTIAL (PRIMARY) HYPERTENSION 10/30/2019 HERNÁNDEZ DO, NAVID Ot I21.4 NON-ST ELEVATION (NSTEMI) MYOCARDIAL INF 10/30/2019 HERNÁNDEZ DO, NAVID Ot K20.9 ESOPHAGITIS, UNSPECIFIED 10/30/2019 HERNÁNDEZ DO, NAVID Ot K92.0 HEMATEMESIS 10/30/2019 HERNÁNDEZ DO, NAVID Ot K92.2 GASTROINTESTINAL HEMORRHAGE, UNSPECIFIED 10/30/2019 HERNÁNDEZ DO, NAVID Ot R10.9 UNSPECIFIED ABDOMINAL PAIN 10/30/2019 HERNÁNDEZ DO, NAVID Ot R11.2 NAUSEA WITH VOMITING, UNSPECIFIED 10/30/2019 HERNÁNDEZ DO, NAVID Ot R12 HEARTBURN 10/30/2019 HERNÁNDEZ DO, NAVID Ot Z86.59 PERSONAL HISTORY OF OTHER MENTAL AND BEH 10/30/2019 HERNÁNDEZ DO, NAVID Ot Z91.5 PERSONAL HISTORY OF SELF-HARM 10/31/2019 HERNÁNDEZ DO, NAVID Ot D64.9 ANEMIA, UNSPECIFIED 10/31/2019 HERNÁNDEZ DO, NAVID Ot D72.82 9 ELEVATED WHITE BLOOD CELL COUNT, UNSPECI 10/31/2019 HERNÁNDEZ DO, NAVID Ot F17.20 0 NICOTINE DEPENDENCE, UNSPECIFIED, UNCOMP 10/31/2019 HERNÁNDEZ DO, NAVID Ot F31.9 BIPOLAR DISORDER, UNSPECIFIED 10/31/2019 HERNÁNDEZ DO, NAVID Ot F41.9 ANXIETY DISORDER, UNSPECIFIED 10/31/2019 HERNÁNDEZ DO, NAVID Ot F50.9 EATING DISORDER, UNSPECIFIED 10/31/2019 HERNÁNDEZ DO, NAVID Ot F60.9 PERSONALITY DISORDER, UNSPECIFIED 10/31/2019 HERNÁNDEZ DO, NAVID Ot G40.90 9 EPILEPSY, UNSP, NOT INTRACTABLE, WITHOUT 10/31/2019 HERNÁNDEZ DO, NAVID Ot I10 ESSENTIAL (PRIMARY) HYPERTENSION 10/31/2019 HERNÁNDEZ DO, NAVID Ot I21.4 NON-ST ELEVATION (NSTEMI) MYOCARDIAL INF 10/31/2019 HERNÁNDEZ DO, NAVID Ot K20.9 ESOPHAGITIS, UNSPECIFIED 10/31/2019 HERNÁDNEZ DO, NAVID Ot K92.0 HEMATEMESIS 10/31/2019 HERNÁNDEZ DO, NAVID Ot K92.2 GASTROINTESTINAL HEMORRHAGE, UNSPECIFIED 10/31/2019 HERNÁNDEZ DO, NAVID Ot R10.9 UNSPECIFIED ABDOMINAL PAIN 10/31/2019 HERNÁNDEZ DO, NAVID Ot R11.2 NAUSEA WITH VOMITING, UNSPECIFIED 10/31/2019 HERNÁNDEZ DO, NAVID Ot R12 HEARTBURN 10/31/2019 HERNÁNDEZ DO, NAVID Ot Z86.59 PERSONAL HISTORY OF OTHER MENTAL AND BEH 10/31/2019 HERNÁNDEZ DO, NAVID Ot Z91.5 PERSONAL HISTORY OF SELF-HARM 11/01/2019 HERNÁNDEZ DO, NAVID Ot D64.9 ANEMIA, UNSPECIFIED 11/01/2019 HERNÁNDEZ DO, NAVID Ot D72.82 9 ELEVATED WHITE BLOOD CELL COUNT, UNSPECI 11/01/2019 HERNÁNDEZ DO, NAVID Ot F17.20 0 NICOTINE DEPENDENCE, UNSPECIFIED, UNCOMP 11/01/2019 HERNÁNDEZ DO, NAVID Ot F31.9 BIPOLAR DISORDER, UNSPECIFIED 11/01/2019 HERNÁNDEZ DO, NAVID Ot F41.9 ANXIETY DISORDER, UNSPECIFIED 11/01/2019 HERNÁNDEZ DO, NAVID Ot F50.9 EATING DISORDER, UNSPECIFIED 11/01/2019 HERNÁNDEZ DO, NAVID Ot F60.9 PERSONALITY DISORDER, UNSPECIFIED 11/01/2019 HERNÁNDEZ DO, NAVID Ot G40.90 9 EPILEPSY, UNSP, NOT INTRACTABLE, WITHOUT 11/01/2019 HERNÁNDEZ DO, NAVID Ot I10 ESSENTIAL (PRIMARY) HYPERTENSION 11/01/2019 HERNÁNDEZ DO, NAVID Ot I21.4 NON-ST ELEVATION (NSTEMI) MYOCARDIAL INF 11/01/2019 HERNÁNDEZ DO, NAVID Ot K20.9 ESOPHAGITIS, UNSPECIFIED 11/01/2019 HERNÁNDEZ DO, NAVID Ot K92.0 HEMATEMESIS 11/01/2019 HERNÁNDEZ DO, NAVID Ot K92.2 GASTROINTESTINAL HEMORRHAGE, UNSPECIFIED 11/01/2019 HERNÁNDEZ DO, NAVID Ot R10.9 UNSPECIFIED ABDOMINAL PAIN 11/01/2019 HERNÁNDEZ DO, NAVID Ot R11.2 NAUSEA WITH VOMITING, UNSPECIFIED 11/01/2019 HERNÁNDEZ DO, NAVID Ot R12 HEARTBURN 11/01/2019 HERNÁNDEZ DO, NAVID Ot Z86.59 PERSONAL HISTORY OF OTHER MENTAL AND BEH 11/01/2019 HERNÁNDEZ DO, NAVID Ot Z91.5 PERSONAL HISTORY OF SELF-HARM 11/01/2019 HERNÁNDEZ DO, NAVID Ot D64.9 ANEMIA, UNSPECIFIED 11/01/2019 HERNÁNDEZ DO, NAVID Ot D72.82 9 ELEVATED WHITE BLOOD CELL COUNT, UNSPECI 11/01/2019 HERNÁNDEZ DO, NAVID Ot F17.20 0 NICOTINE DEPENDENCE, UNSPECIFIED, UNCOMP 11/01/2019 HERNÁNDEZ DO, NAVID Ot F31.9 BIPOLAR DISORDER, UNSPECIFIED 11/01/2019 HERNÁNDEZ DO, NAVID Ot F41.9 ANXIETY DISORDER, UNSPECIFIED 11/01/2019 HERNÁNDEZ DO, NAVID Ot F50.9 EATING DISORDER, UNSPECIFIED 11/01/2019 HERNÁNDEZ DO, NAVID Ot F60.9 PERSONALITY DISORDER, UNSPECIFIED 11/01/2019 HERNÁNDEZ DO, NAVID Ot G40.90 9 EPILEPSY, UNSP, NOT INTRACTABLE, WITHOUT 11/01/2019 HERNÁNDEZ DO, NAVID Ot I10 ESSENTIAL (PRIMARY) HYPERTENSION 11/01/2019 HERNÁNDEZ DO, NAVID Ot I21.4 NON-ST ELEVATION (NSTEMI) MYOCARDIAL INF 11/01/2019 HERNÁNDEZ DO, NAVID Ot K20.9 ESOPHAGITIS, UNSPECIFIED 11/01/2019 HERNÁNDEZ DO, NAVID Ot K92.0 HEMATEMESIS 11/01/2019 HERNÁNDEZ DO, NAVID Ot K92.2 GASTROINTESTINAL HEMORRHAGE, UNSPECIFIED 11/01/2019 HERNÁNDEZ DO, NAVID Ot R10.9 UNSPECIFIED ABDOMINAL PAIN 11/01/2019 HERNÁNDEZ DO, NAVID Ot R11.2 NAUSEA WITH VOMITING, UNSPECIFIED 11/01/2019 HERNÁNDEZ DO, NAVID Ot R12 HEARTBURN 11/01/2019 HERNÁNDEZ DO, NAVID Ot Z86.59 PERSONAL HISTORY OF OTHER MENTAL AND BEH 11/01/2019 HERNÁNDEZ DO, NAVID Ot Z91.5 PERSONAL HISTORY OF SELF-HARM 11/01/2019 HERNÁNDEZ DO, NAVID Ot D50.0 IRON DEFICIENCY ANEMIA SECONDARY TO BLOO 11/01/2019 HERNÁNDEZ DO, NAVID Ot D72.82 9 ELEVATED WHITE BLOOD CELL COUNT, UNSPECI 11/01/2019 HERNÁNDEZ DO, NAVID Ot F17.29 0 NICOTINE DEPENDENCE, OTHER TOBACCO PRODU 11/01/2019 HERNÁNDEZ DO, NAVID Ot F31.9 BIPOLAR DISORDER, UNSPECIFIED 11/01/2019 HERNÁNDEZ DO, NAVID Ot F41.9 ANXIETY DISORDER, UNSPECIFIED 11/01/2019 HERNÁNDEZ DO, NAVID Ot F50.9 EATING DISORDER, UNSPECIFIED 11/01/2019 HERNÁNDEZ DO, NAVID Ot F60.9 PERSONALITY DISORDER, UNSPECIFIED 11/01/2019 HERNÁNDEZ DO, NAVID Ot G40.90 9 EPILEPSY, UNSP, NOT INTRACTABLE, WITHOUT 11/01/2019 HERNÁNDEZ DO, NAVID Ot I10 ESSENTIAL (PRIMARY) HYPERTENSION 11/01/2019 HERNÁNDEZ DO, NAVID Ot I21.A1 MYOCARDIAL INFARCTION TYPE 2 11/01/2019 HERNÁNDEZ DO, NAVID Ot K20.8 OTHER ESOPHAGITIS 11/01/2019 HERNÁNDEZ DO, NAVID Ot K92.0 HEMATEMESIS 11/01/2019 HERNÁNDEZ DO, NAVID Ot Z86.59 PERSONAL HISTORY OF OTHER MENTAL AND BEH 11/01/2019 HERNÁNDEZ DO, NAVID Ot Z90.89 ACQUIRED ABSENCE OF OTHER ORGANS 11/01/2019 HERNÁNDEZ DO, NAVID Ot Z91.5 PERSONAL HISTORY OF SELF-HARM 11/05/2019 HERNÁNDEZ DO, NAVID Ot D50.0 IRON DEFICIENCY ANEMIA SECONDARY TO BLOO 11/05/2019 HERNÁNDEZ DO, NAVID Ot D72.82 9 ELEVATED WHITE BLOOD CELL COUNT, UNSPECI 11/05/2019 HERNÁNDEZ DO, NAVID Ot F17.29 0 NICOTINE DEPENDENCE, OTHER TOBACCO PRODU 11/05/2019 HERNÁNDEZ DO, NAVID Ot F31.9 BIPOLAR DISORDER, UNSPECIFIED 11/05/2019 HERNÁNDEZ DO, NAVID Ot F41.9 ANXIETY DISORDER, UNSPECIFIED 11/05/2019 HERNÁNDEZ DO, NAVID Ot F50.9 EATING DISORDER, UNSPECIFIED 11/05/2019 HERNÁNDEZ DO, NAVID Ot F60.9 PERSONALITY DISORDER, UNSPECIFIED 11/05/2019 HERNÁNDEZ DO, NAVID Ot G40.90 9 EPILEPSY, UNSP, NOT INTRACTABLE, WITHOUT 11/05/2019 HERNÁNDEZ DO, NAVID Ot I10 ESSENTIAL (PRIMARY) HYPERTENSION 11/05/2019 HERNÁNDEZ DO, NAVID Ot I21.A1 MYOCARDIAL INFARCTION TYPE 2 11/05/2019 HERNÁNDEZ DO, NAVID Ot K20.8 OTHER ESOPHAGITIS 11/05/2019 HERNÁNDEZ DO, NAVID Ot K92.0 HEMATEMESIS 11/05/2019 HERNÁNDEZ DO, NAVID Ot Z86.59 PERSONAL HISTORY OF OTHER MENTAL AND BEH 11/05/2019 HERNÁNDEZ DO, NAVID Ot Z90.89 ACQUIRED ABSENCE OF OTHER ORGANS 11/05/2019 HERNÁNDEZ DO, NAVID Ot Z91.5 PERSONAL HISTORY OF SELF-HARM 11/05/2019 HERNÁNDEZ DO, NAVID Ot D50.0 IRON DEFICIENCY ANEMIA SECONDARY TO BLOO 11/05/2019 HERNÁNDEZ DO, NAVID Ot D72.82 9 ELEVATED WHITE BLOOD CELL COUNT, UNSPECI 11/05/2019 HERNÁNDEZ DO, NAVID Ot F17.29 0 NICOTINE DEPENDENCE, OTHER TOBACCO PRODU 11/05/2019 HERNÁNDEZ DO, NAVID Ot F31.9 BIPOLAR DISORDER, UNSPECIFIED 11/05/2019 HERNÁNDEZ DO, NAVID Ot F41.9 ANXIETY DISORDER, UNSPECIFIED 11/05/2019 HERNÁNDEZ DO, NAVID Ot F50.9 EATING DISORDER, UNSPECIFIED 11/05/2019 HERNÁNDEZ DO, NAVID Ot F60.9 PERSONALITY DISORDER, UNSPECIFIED 11/05/2019 HERNÁNDEZ DO, NAVID Ot G40.90 9 EPILEPSY, UNSP, NOT INTRACTABLE, WITHOUT 11/05/2019 HERNÁNDEZ DO, NAVID Ot I10 ESSENTIAL (PRIMARY) HYPERTENSION 11/05/2019 HERNÁNDEZ DO, NAVID Ot I21.A1 MYOCARDIAL INFARCTION TYPE 2 11/05/2019 HERNÁNDEZ DO, NAVID Ot K20.8 OTHER ESOPHAGITIS 11/05/2019 HERNÁNDEZ DO, NAVID Ot K92.0 HEMATEMESIS 11/05/2019 HERNÁNDEZ DO, NAVID Ot Z86.59 PERSONAL HISTORY OF OTHER MENTAL AND BEH 11/05/2019 HERNÁNDEZ DO, NAVID Ot Z90.89 ACQUIRED ABSENCE OF OTHER ORGANS 11/05/2019 HERNÁNDEZ DO, NAVID Ot Z91.5 PERSONAL HISTORY OF SELF-HARM 11/05/2019 HERNÁNDEZ DO, NAVID Ot D50.0 IRON DEFICIENCY ANEMIA SECONDARY TO BLOO 11/05/2019 HERNÁNDEZ DO, NAVID Ot D72.82 9 ELEVATED WHITE BLOOD CELL COUNT, UNSPECI 11/05/2019 HERNÁNDEZ DO, NAVID Ot F17.29 0 NICOTINE DEPENDENCE, OTHER TOBACCO PRODU 11/05/2019 HERNÁNDEZ DO, NAVID Ot F31.9 BIPOLAR DISORDER, UNSPECIFIED 11/05/2019 HERNÁNDEZ DO, NAVID Ot F41.9 ANXIETY DISORDER, UNSPECIFIED 11/05/2019 HERNÁNDEZ DO, NAVID Ot F50.9 EATING DISORDER, UNSPECIFIED 11/05/2019 HERNÁNDEZ DO, NAVDI Ot F60.9 PERSONALITY DISORDER, UNSPECIFIED 11/05/2019 HERNÁNDEZ DO, NAVID Ot G40.90 9 EPILEPSY, UNSP, NOT INTRACTABLE, WITHOUT 11/05/2019 HERNÁNDEZ DO, NAVID Ot I10 ESSENTIAL (PRIMARY) HYPERTENSION 11/05/2019 HERNÁNDEZ DO, NAVID Ot I21.A1 MYOCARDIAL INFARCTION TYPE 2 11/05/2019 HERNÁNDEZ DO, NAVID Ot K20.8 OTHER ESOPHAGITIS 11/05/2019 HERNÁNDEZ DO, NAVID Ot K92.0 HEMATEMESIS 11/05/2019 HERNÁNDEZ DO, NAVID Ot Z86.59 PERSONAL HISTORY OF OTHER MENTAL AND BEH 11/05/2019 HERNÁNDEZ DO, NAVID Ot Z90.89 ACQUIRED ABSENCE OF OTHER ORGANS 11/05/2019 HERNÁNDEZ DO, NAVID Ot Z91.5 PERSONAL HISTORY OF SELF-HARM 11/05/2019 HERNÁNDEZ DO, NAVID Ot D50.0 IRON DEFICIENCY ANEMIA SECONDARY TO BLOO 11/05/2019 HERNÁNDEZ DO, NAVID Ot D72.82 9 ELEVATED WHITE BLOOD CELL COUNT, UNSPECI 11/05/2019 HERNÁNDEZ DO, NAVID Ot F17.29 0 NICOTINE DEPENDENCE, OTHER TOBACCO PRODU 11/05/2019 HERNÁNDEZ DO, NAVID Ot F31.9 BIPOLAR DISORDER, UNSPECIFIED 11/05/2019 HERNÁNDEZ DO, NAVID Ot F41.9 ANXIETY DISORDER, UNSPECIFIED 11/05/2019 HERNÁNDEZ DO, NAVID Ot F50.9 EATING DISORDER, UNSPECIFIED 11/05/2019 HERNÁNDEZ DO, NAVID Ot F60.9 PERSONALITY DISORDER, UNSPECIFIED 11/05/2019 HERNÁNDEZ DO, NAVID Ot G40.90 9 EPILEPSY, UNSP, NOT INTRACTABLE, WITHOUT 11/05/2019 ROBBI HERNÁNDEZ DOI Ot I10 ESSENTIAL (PRIMARY) HYPERTENSION 11/05/2019 NAVID HERNÁNDEZ DO Ot I21.A1 MYOCARDIAL INFARCTION TYPE 2 11/05/2019 ROBBI HERNÁNDEZ DOI Ot K20.8 OTHER ESOPHAGITIS 11/05/2019 ROBBI HERNÁNDEZ DOI Ot K92.0 HEMATEMESIS 11/05/2019 ROBBI HERNÁNDEZ DOI Ot Z86.59 PERSONAL HISTORY OF OTHER MENTAL AND BEH 11/05/2019 BETTY JACKSON NAVID Ot Z90.89 ACQUIRED ABSENCE OF OTHER ORGANS 11/05/2019 ROBBI HERNÁNDEZ DOI Ot Z91.5 PERSONAL HISTORY OF SELF-HARM Procedures There is no data. Results Test Result Range Complete blood count (CBC) with automate d white blood cell (WBC) differential - 08/17/18 00:17 Blood leukocytes automated count (number/volume) 11.3 10*3/uL 4.3-11.0 Blood erythrocytes automated count (number/volume) 4.65 10*6/uL 4.35-5.85 Venous blood hemoglobin measurement (mass/volume) 14.1 g/dL 13.3-17.7 Blood hematocrit (volume fraction) 42 % 40-54 Automated erythrocyte mean corpuscular volume 90 [ foz_us] 80-99 Automated erythrocyte mean corpuscular h emoglobin (mass per erythrocyte) 30 pg 25-34 Automated erythrocyte mean corpuscular h emoglobin concentration measurement (mass/volume) 34 g/dL 32-36 Automated erythrocyte distribution width ratio 14. 0 % 10.0- 14.5 Automated blood platelet count (count/volume) 386 10*3/uL 130-400 Automated blood platelet mean volume measurement 8.2 [foz_us] 7.4-10.4 Automated blood neutrophils/100 leukocytes 83 % 42-75 Automated blood lymphocytes/100 leukocytes 9 % 12-44 Blood monocytes/100 leukocytes 8 % 0-12 Automated blood eosinophils/100 leukocytes 0 % 0-10 Automated blood basophils/100 leukocytes 0 % 0-10 Blood neutrophils automated count (number/volume) 9.3 10*3 1.8-7.8 Blood lymphocytes automated count (number/volume) 1.1 10*3 1.0-4.0 Blood monocytes automated count (number/volume) 0. 9 10*3 0.0-1.0 Automated eosinophil count 0.0 10*3/uL 0 .0-0.3 Automated blood basophil count (count/volume) 0.0 10*3/uL 0.0-0.1 Comprehensive metabolic panel - 08/17/18 00:17 Serum or plasma sodium measurement (moles/volume) 140 mmol/L 135-145 Serum or plasma potassium measurement (moles/volume) 3.7 mmol/L 3.6-5.0 Serum or plasma chloride measurement (moles/volume) 102 mmol/L 98-107 Carbon dioxide 23 mmol/L 21-32 Serum or plasma anion gap determination (moles/volume) 15 mmol/L 5-14 Serum or plasma urea nitrogen measurement (mass/volume ) 29 mg/dL 7-18 Serum or plasma creatinine measurement (mass/volume) 0.99 mg/dL 0.60-1.30 Serum or plasma urea nitrogen/creatinine mass ratio 29 NRG Serum or plasma creatinine measurement w ith calculation of estimated glomerular filtration rate > NRG Serum or plasma glucose measurement (mass/volume) 69 mg/dL 70-105 Serum or plasma calcium measurement (mass/volume) 10.9 mg/dL 8.5-10.1 Serum or plasma total bilirubin measurement (mass/volu me) 1.6 mg/dL 0.1-1.0 Serum or plasma alkaline phosphatase jose david surement (enzymatic activity/volume) 93 U/L 40-136 Serum or plasma aspartate aminotransfera se measurement (enzymatic activity/volume) 44 U/L 5-34 Serum or plasma alanine aminotransferase measurement (enzymatic activity/volume) 35 U/L 0-55 Serum or plasma protein measurement (mass/volume) 8.5 g/dL 6.4-8.2 Serum or plasma albumin measurement (mass/volume) 5.1 g/dL 3.2-4.5 Serum or plasma thyrotropin measurement by detection limit <=0.05 miu/l (units/volume) - 08/17/18 00:17 Serum or plasma thyrotropin measurement by detection limit <=0.05 miu/l (units/volume) 1.63 u[iU]/mL 0.35-4.94 Serum or plasma salicylates measurement (mass/volume) - 08/17/18 00:17 Serum or plasma salicylates measurement (mass/volume) < mg/dL 5.0-20.0 Serum or plasma acetaminophen measuremen t (mass/volume) - 08/17/18 00:17 Serum or plasma acetaminophen measurement (mass/volume ) < ug/mL 10-30 Serum or plasma ethanol measurement (mas s/volume) - 08/17/18 00:17 Serum or plasma ethanol measurement (mass/volume) < mg/dL <10 Complete urinalysis with reflex to cultu re - 08/17/18 00:55 Urine color determination YELLOW NRG Urine clarity determination SLIGHTLY CLOUDY NRG Urine pH measurement by test strip 5 5-9 Specific gravity of urine by test strip 1.030 1.016-1.022 Urine protein assay by test strip, semi-quantitative 3+ NEGATIVE Urine glucose detection by automated test strip NE GATIVE NEGATIVE Erythrocytes detection in urine sediment by light micr oscopy 2+ NEGATIVE Urine ketones detection by automated test strip 4+ NEGATIVE Urine nitrite detection by test strip NEGATIVE NEGATIVE Urine total bilirubin detection by test strip NEGA TIVE NEGATIVE Urine urobilinogen measurement by automated test strip (mass/volume) NORMAL NORMAL Urine leukocyte esterase detection by dipstick 2+ NEGATIVE Automated urine sediment erythrocyte cou nt by microscopy (number/high power field) [HPF] NRG Automated urine sediment leukocyte count by microscopy (number/high power field) [HPF] NRG Bacteria detection in urine sediment by light microsco py MODERATE NRG Squamous epithelial cells detection in u rine sediment by light microscopy 0-2 NRG Crystals detection in urine sediment by light microsco py NONE NRG Casts detection in urine sediment by light microscopy PRESENT NRG Mucus detection in urine sediment by light microscopy LARGE NRG Complete urinalysis with reflex to culture YES NRG Hyaline casts detection in urine sediment by light gloria roscopy 2-5 NRG Urine drug screening test - 08/17/18 00: 55 Urine phencyclidine detection by screening method NEGATIVE NEGATIVE Urine benzodiazepines detection by screening method NEGATIVE NEGATIVE Urine cocaine detection NEGATIVE NEGATI VE Urine amphetamines detection by screening method P OSITIVE NEGATIVE Urine methamphetamine detection by screening method POSITIVE NEGATIVE Urine cannabinoids detection by screening method N EGATIVE NEGATIVE Urine opiates detection by screening method NEGATI VE NEGATIVE Urine barbiturates detection NEGATIVE N EGATIVE Screening urine tricyclic antidepressants detection NEGATIVE NEGATIVE Urine methadone detection by screening method NEGA TIVE NEGATIVE Urine oxycodone detection NEGATIVE NEGA TIVE Urine propoxyphene detection NEGATIVE N EGATIVE Bacterial urine culture - 08/17/18 00:55 Bacterial urine culture NG NRG Chlamydia DNA amp probe, urine - 9 00:55 Chlamydia DNA amp probe, urine Not Detected Not Detected Urine Neisseria gonorrhoeae DNA assay - 08/17/18 00:55 Gonorrhea amp DNA-urine Not Detected No t Detected CBC - 08/03/19 08:15 WHITE BLOOD CELL COUNT 6.3 Thousand/uL 3 .8-10.8 RED BLOOD CELL COUNT 4.59 Million/uL 4.2 0-5.80 HEMOGLOBIN 14.7 g/dL 13.2-17.1 HEMATOCRIT 41.9 % 38.5-50.0 MCV 91.3 fL 80.0-100.0 MCH 32.0 pg 27.0-33.0 MCHC 35.1 g/dL 32.0-36.0 RDW 13.2 % 11.0-15.0 PLATELET COUNT 424 Thousand/uL 140-400 MPV 8.1 fL 7.5-12.5 ABSOLUTE NEUTROPHILS 3837 cells/uL 1500- 7800 ABSOLUTE LYMPHOCYTES 1833 cells/uL 850-3 900 ABSOLUTE MONOCYTES 529 cells/uL 200-950 ABSOLUTE EOSINOPHILS 88 cells/uL 15-500 ABSOLUTE BASOPHILS 13 cells/uL 0-200 NEUTROPHILS 60.9 % NRG LYMPHOCYTES 29.1 % NRG MONOCYTES 8.4 % NRG EOSINOPHILS 1.4 % NRG BASOPHILS 0.2 % NRG Complete blood count (CBC) with automate d white blood cell (WBC) differential - 10/29/19 14:34 Blood leukocytes automated count (number/volume) 11.0 10*3/uL 4.3-11.0 Blood erythrocytes automated count (number/volume) 2.85 10*6/uL 4.35-5.85 Venous blood hemoglobin measurement (mass/volume) 7.8 g/dL 13.3-17.7 Blood hematocrit (volume fraction) 25 % 40-54 Automated erythrocyte mean corpuscular volume 86 [ foz_us] 80-99 Automated erythrocyte mean corpuscular h emoglobin (mass per erythrocyte) 27 pg 25-34 Automated erythrocyte mean corpuscular h emoglobin concentration measurement (mass/volume) 32 g/dL 32-36 Automated erythrocyte distribution width ratio 14. 4 % 10.0- 14.5 Automated blood platelet count (count/volume) 681 10*3/uL 130-400 Automated blood platelet mean volume measurement 7.7 [foz_us] 7.4-10.4 Automated blood neutrophils/100 leukocytes 74 % 42-75 Automated blood lymphocytes/100 leukocytes 16 % 12-44 Blood monocytes/100 leukocytes 10 % 0-12 Automated blood eosinophils/100 leukocytes 1 % 0-10 Automated blood basophils/100 leukocytes 0 % 0-10 Blood neutrophils automated count (number/volume) 8.1 10*3 1.8-7.8 Blood lymphocytes automated count (number/volume) 1.7 10*3 1.0-4.0 Blood monocytes automated count (number/volume) 1. 1 10*3 0.0-1.0 Automated eosinophil count 0.1 10*3/uL 0 .0-0.3 Automated blood basophil count (count/volume) 0.0 10*3/uL 0.0-0.1 Comprehensive metabolic panel - 10/29/19 14:34 Serum or plasma sodium measurement (moles/volume) 131 mmol/L 135-145 Serum or plasma potassium measurement (moles/volume) 3.4 mmol/L 3.6-5.0 Serum or plasma chloride measurement (moles/volume) 99 mmol/L 98-107 Carbon dioxide 19 mmol/L 21-32 Serum or plasma anion gap determination (moles/volume) 13 mmol/L 5-14 Serum or plasma urea nitrogen measurement (mass/volume ) 10 mg/dL 7-18 Serum or plasma creatinine measurement (mass/volume) 0.78 mg/dL 0.60-1.30 Serum or plasma urea nitrogen/creatinine mass ratio 13 NRG Serum or plasma creatinine measurement w ith calculation of estimated glomerular filtration rate > NRG Serum or plasma glucose measurement (mass/volume) 128 mg/dL 70-105 Serum or plasma calcium measurement (mass/volume) 8.2 mg/dL 8.5-10.1 Serum or plasma total bilirubin measurement (mass/volu me) 0.3 mg/dL 0.1-1.0 Serum or plasma alkaline phosphatase jose david surement (enzymatic activity/volume) 88 U/L 40-136 Serum or plasma aspartate aminotransfera se measurement (enzymatic activity/volume) 16 U/L 5-34 Serum or plasma alanine aminotransferase measurement (enzymatic activity/volume) 12 U/L 0-55 Serum or plasma protein measurement (mass/volume) 6.3 g/dL 6.4-8.2 Serum or plasma albumin measurement (mass/volume) 3.5 g/dL 3.2-4.5 CALCIUM CORRECTED 8.6 mg/dL 8.5-10.1 PT panel in platelet poor plasma by coag ulation assay - 10/29/19 14:34 Prothrombin time (PT) in platelet poor plasma by coagu lation assay 11.5 s 12.2-14.7 INR in platelet poor plasma or blood by coagulation as say 0.8 0.8-1.4 Activated partial thromboplastin time (a PTT) in platelet poor plasma bycoagulation assay - 10/29/19 14:34 Activated partial thromboplastin time (a PTT) in platelet poor plasma bycoagulation assay 28 s 24-35 Fibrin D-dimer FEU measurement in platel et poor plasma (mass/volume) - 10/29/19 14:34 Fibrin D-dimer FEU measurement in platelet poor plasma (mass/volume) 0.47 ug/mL 0.00-0.49 Magnesium - 10/29/19 14:34 Magnesium 2.0 mg/dL 1.6-2.4 Myoglobin, serum - 10/29/19 14:34 Myoglobin, serum 51.1 ng/mL 10.0-92.0 Serum or plasma lithium measurement (mol es/volume) - 10/29/19 14:34 BNP PT 10.0 pg/mL <100.0 Serum or plasma troponin i.cardiac measu rement (mass/volume) - 10/29/19 14:34 Serum or plasma troponin i.cardiac measurement (mass/v olume) 0.064 ng/mL <0.028 Serum or plasma ethanol measurement (mas s/volume) - 10/29/19 14:34 Serum or plasma ethanol measurement (mass/volume) < mg/dL <10 IRON TEST - 10/29/19 14:34 Serum or plasma iron measurement (mass/volume) NRG Serum iron and total iron binding capaci ty panel - 10/29/19 14:34 TIBC 352 % 237-330 UIBC 330 % 25-500 Total iron binding capacity and transferrin saturation measurement 6 % 17-57 Serum or plasma ferritin measurement (mass/volume) 8.7 % 32.0-356.0 Urine drug screening test - 10/29/19 14: 45 Urine phencyclidine detection by screening method NEGATIVE NEGATIVE Urine benzodiazepines detection by screening method NEGATIVE NEGATIVE Urine cocaine detection NEGATIVE NEGATI VE Urine amphetamines detection by screening method N EGATIVE NEGATIVE Urine methamphetamine detection by screening method NEGATIVE NEGATIVE Urine cannabinoids detection by screening method P OSITIVE NEGATIVE Urine opiates detection by screening method NEGATI VE NEGATIVE Urine barbiturates detection NEGATIVE N EGATIVE Screening urine tricyclic antidepressants detection NEGATIVE NEGATIVE Urine methadone detection by screening method NEGA TIVE NEGATIVE Urine oxycodone detection NEGATIVE NEGA TIVE Urine propoxyphene detection NEGATIVE N EGATIVE RED CELLS LEUKO REDUCED AS1 - 10/29/19 1 5:30 RED CELLS LEUKO REDUCED AS1 N OT AVAILABLE NRG Blood type T Indirect antibody screen pa [facility] - 10/29/19 15:30 WRISTBAND NUMBER [id number] NRG ABO+Rh group AP NRG Blood group antibody screen NEGATIVE NR G Serum or plasma troponin i.cardiac measu rement (mass/volume) - 10/29/19 21:00 Serum or plasma troponin i.cardiac measurement (mass/v olume) 0.093 ng/mL <0.028 Complete blood count (CBC) with automate d white blood cell (WBC) differential - 10/30/19 01:31 Blood leukocytes automated count (number/volume) 7.8 10*3/uL 4.3-11.0 Blood erythrocytes automated count (number/volume) 2.75 10*6/uL 4.35-5.85 Venous blood hemoglobin measurement (mass/volume) 7.7 g/dL 13.3-17.7 Blood hematocrit (volume fraction) 24 % 40-54 Automated erythrocyte mean corpuscular volume 87 [ foz_us] 80-99 Automated erythrocyte mean corpuscular h emoglobin (mass per erythrocyte) 28 pg 25-34 Automated erythrocyte mean corpuscular h emoglobin concentration measurement (mass/volume) 32 g/dL 32-36 Automated erythrocyte distribution width ratio 14. 0 % 10.0- 14.5 Automated blood platelet count (count/volume) 550 10*3/uL 130-400 Automated blood platelet mean volume measurement 7.8 [foz_us] 7.4-10.4 Automated blood neutrophils/100 leukocytes 63 % 42-75 Automated blood lymphocytes/100 leukocytes 23 % 12-44 Blood monocytes/100 leukocytes 12 % 0-12 Automated blood eosinophils/100 leukocytes 2 % 0-10 Automated blood basophils/100 leukocytes 0 % 0-10 Blood neutrophils automated count (number/volume) 4.9 10*3 1.8-7.8 Blood lymphocytes automated count (number/volume) 1.8 10*3 1.0-4.0 Blood monocytes automated count (number/volume) 0. 9 10*3 0.0-1.0 Automated eosinophil count 0.1 10*3/uL 0 .0-0.3 Automated blood basophil count (count/volume) 0.0 10*3/uL 0.0-0.1 Comprehensive metabolic panel - 10/30/19 01:31 Serum or plasma sodium measurement (moles/volume) 134 mmol/L 135-145 Serum or plasma potassium measurement (moles/volume) 3.8 mmol/L 3.6-5.0 Serum or plasma chloride measurement (moles/volume) 103 mmol/L 98-107 Carbon dioxide 22 mmol/L 21-32 Serum or plasma anion gap determination (moles/volume) 9 mmol/L 5-14 Serum or plasma urea nitrogen measurement (mass/volume ) 8 mg/dL 7-18 Serum or plasma creatinine measurement (mass/volume) 0.72 mg/dL 0.60-1.30 Serum or plasma urea nitrogen/creatinine mass ratio 11 NRG Serum or plasma creatinine measurement w ith calculation of estimated glomerular filtration rate > NRG Serum or plasma glucose measurement (mass/volume) 96 mg/dL 70-105 Serum or plasma calcium measurement (mass/volume) 7.8 mg/dL 8.5-10.1 Serum or plasma total bilirubin measurement (mass/volu me) 0.8 mg/dL 0.1-1.0 Serum or plasma alkaline phosphatase jose david surement (enzymatic activity/volume) 68 U/L 40-136 Serum or plasma aspartate aminotransfera se measurement (enzymatic activity/volume) 11 U/L 5-34 Serum or plasma alanine aminotransferase measurement (enzymatic activity/volume) 9 U/L 0-55 Serum or plasma protein measurement (mass/volume) 5.1 g/dL 6.4-8.2 Serum or plasma albumin measurement (mass/volume) 2.9 g/dL 3.2-4.5 CALCIUM CORRECTED 8.7 mg/dL 8.5-10.1 Serum or plasma troponin i.cardiac measu rement (mass/volume) - 10/30/19 05:06 Serum or plasma troponin i.cardiac measurement (mass/v olume) 0.074 ng/mL <0.028 Lipid 1996 panel - 10/30/19 05:06 Serum or plasma triglyceride measurement (mass/volume) 95 mg/dL <150 Serum or plasma cholesterol measurement (mass/volume) 142 mg/dL < 200 Serum or plasma cholesterol in HDL measurement (mass/v olume) 45 mg/dL 40-60 Cholesterol in LDL [mass/volume] in serum or plasma by direct assay 94 mg/dL 1-129 Serum or plasma cholesterol in VLDL measurement (mass/ volume) 19 mg/dL 5-40 Complete blood count (CBC) with automate d white blood cell (WBC) differential - 10/31/19 11:30 Blood leukocytes automated count (number/volume) 6.2 10*3/uL 4.3-11.0 Blood erythrocytes automated count (number/volume) 2.86 10*6/uL 4.35-5.85 Venous blood hemoglobin measurement (mass/volume) 7.8 g/dL 13.3-17.7 Blood hematocrit (volume fraction) 25 % 40-54 Automated erythrocyte mean corpuscular volume 87 [ foz_us] 80-99 Automated erythrocyte mean corpuscular h emoglobin (mass per erythrocyte) 27 pg 25-34 Automated erythrocyte mean corpuscular h emoglobin concentration measurement (mass/volume) 31 g/dL 32-36 Automated erythrocyte distribution width ratio 14. 7 % 10.0- 14.5 Automated blood platelet count (count/volume) 482 10*3/uL 130-400 Automated blood platelet mean volume measurement 7.5 [foz_us] 7.4-10.4 Automated blood neutrophils/100 leukocytes 64 % 42-75 Automated blood lymphocytes/100 leukocytes 22 % 12-44 Blood monocytes/100 leukocytes 13 % 0-12 Automated blood eosinophils/100 leukocytes 1 % 0-10 Automated blood basophils/100 leukocytes 0 % 0-10 Blood neutrophils automated count (number/volume) 4.0 10*3 1.8-7.8 Blood lymphocytes automated count (number/volume) 1.4 10*3 1.0-4.0 Blood monocytes automated count (number/volume) 0. 8 10*3 0.0-1.0 Automated eosinophil count 0.1 10*3/uL 0 .0-0.3 Automated blood basophil count (count/volume) 0.0 10*3/uL 0.0-0.1 Comprehensive metabolic panel - 10/31/19 12:06 Serum or plasma sodium measurement (moles/volume) 135 mmol/L 135-145 Serum or plasma potassium measurement (moles/volume) 3.8 mmol/L 3.6-5.0 Serum or plasma chloride measurement (moles/volume) 107 mmol/L 98-107 Carbon dioxide 17 mmol/L 21-32 Serum or plasma anion gap determination (moles/volume) 11 mmol/L 5-14 Serum or plasma urea nitrogen measurement (mass/volume ) 8 mg/dL 7-18 Serum or plasma creatinine measurement (mass/volume) 0.74 mg/dL 0.60-1.30 Serum or plasma urea nitrogen/creatinine mass ratio 11 NRG Serum or plasma creatinine measurement w ith calculation of estimated glomerular filtration rate > NRG Serum or plasma glucose measurement (mass/volume) 64 mg/dL 70-105 Serum or plasma calcium measurement (mass/volume) 7.7 mg/dL 8.5-10.1 Serum or plasma total bilirubin measurement (mass/volu me) 0.5 mg/dL 0.1-1.0 Serum or plasma alkaline phosphatase jose david surement (enzymatic activity/volume) 67 U/L 40-136 Serum or plasma aspartate aminotransfera se measurement (enzymatic activity/volume) 10 U/L 5-34 Serum or plasma alanine aminotransferase measurement (enzymatic activity/volume) 10 U/L 0-55 Serum or plasma protein measurement (mass/volume) 5.1 g/dL 6.4-8.2 Serum or plasma albumin measurement (mass/volume) 2.9 g/dL 3.2-4.5 CALCIUM CORRECTED 8.6 mg/dL 8.5-10.1 Magnesium - 10/31/19 12:06 Magnesium 1.8 mg/dL 1.6-2.4 Coronavirus SARS-CoV-2 SO 2018 - 0 08:15 Coronavirus Ab [Units/volume] in Serum Negative Negative Encounters ACCT No. Visit Date/Time Discharge Status Pt. Type Provider Facility Loc./Unit Complaint [id number] 08/20/2014 16:13:46 08/20/2014 23:59: 59 CLS Outpatient Lorena Schreiberle [id number] 10/28/2013 09:29:07 10/28/2013 23:59: 59 CLS Outpatient Lorena Schreiber [id number] 10/29/2019 13:15:00 10/29/2019 23:59: 59 CLS Outpatient [facility] [id number] 08/03/2019 08:15:00 Document Registration [id number] 12/31/2019 05:42:00 020 15:05:00 DIS Outpatient TORO MATHIS DO [facility] PREOP COLONOSCOPY/EGD [id number] 10/29/2019 20:32:00 020 16:30:00 DIS Inpatient NAVID HERNÁNDEZ DO [facility] 4TH CHEST PAIN, ANEMIA, ESO PHAGITIS [id number] 08/16/2018 23:39:00 019 02:45:00 DIS Emergency REGINA GOLDSMITH DO [facility] ER FACE BLEEDING [id number] 01/05/2020 10:20:00 P EN Preadmit TORO MATHIS DO [facility] ENDO BLOOD IN STOOL/DYSPHAGIA
[2020-01-05] MEDS ORDERED: proPOfol 200 MG/20 ML (DIPRIVAN) VIAL IV ONE ×2 (09:32→10:17)
[2020-01-05] MEDS ORDERED: MIDAZOLAM 2 MG/2 ML (VERSED) VIAL ONE (09:33)
[2020-01-05 10:30] VITALS: BP 96/63
[2020-01-05 10:35] VITALS: BP 134/70
--- NOTE | 2020-01-05 10:37 | Progress Note-Post Operative ---
Post-Operative Progess Note Surgeon (s)/Radiology Services Manager (s) Surgeon TORO MATHIS DO Radiology Services Manager: na Pre-Operative Diagnosis blood in stool, dysphagia Post-Operative Diagnosis hiatal hernia, erosive esophagitis, diverticulosis Procedure & Operative Findings Date of Procedure 01/05/20 Procedure Performed/Findings egd c biopsies and esophageal brushings, colonoscopy Anesthesia Type per [facility] Estimated Blood Loss Estimated blood loss (mL): scant Specimens/Packing Specimens Removed antrum, distal esophagus, esophageal brushings TORO MATHIS DO Jan 05, 2020 10:37
[2020-01-05] MEDS ORDERED: SUCR1TAB36 PO (10:39)
[2020-01-05] MEDS ORDERED: PANT40TA2 PO (10:39)
--- NOTE | 2020-01-05 10:39 | Discharge Inst-Simple/Standard ---
Discharge Inst-Standard Discharge Medications New, Converted or Re-Newed RX: Transmitted to Pharmacy Patient Instructions/Follow Up Plan of Care/Instructions/FU: 2 weeks Joy Activity as Tolerated: Yes Discharge Diet: Regular Diet (gerd diet) TORO MATHIS DO Jan 05, 2020 10:39
[2020-01-05 10:40] VITALS: BP 134/70
[2020-01-05 11:00] VITALS: BP 134/70
--- NOTE | 2020-01-05 12:27 | Anesthesia-General Post-Op ---
MAC Patient Condition Mental Status/LOC: Same as Preop Cardiovascular: Satisfactory Nausea/Vomiting: Absent Respiratory: Satisfactory Pain: Controlled Complications: Absent Post Op Complications Complications None Follow Up Care/Instructions Patient Instructions None needed. Anesthesiology Discharge Order Discharge Order Patient was seen this morning after the procedure and he was doing well, no complaints, stable vital signs, no apparent adverse anesthesia problems. HARMONY DAO DO Jan 05, 2020 12:27
--- NOTE | 2020-01-05 13:21 | OPERATIVE REPORT ---
DATE OF SERVICE: 01/05/2020 PREOPERATIVE DIAGNOSIS: Blood in stool, dysphagia. POSTOPERATIVE DIAGNOSES: Hiatal hernia, erosive esophagitis, diverticulosis. PROCEDURE: EGD with biopsies and esophageal brushings and colonoscopy. SURGEON: Hans Hamilton DO ANESTHESIA: Per MDA. ESTIMATED BLOOD LOSS: Scant. COMPLICATIONS: None. INDICATIONS: The patient is a 49-year-old male with dysphagia, needing colonoscopy. He understands risks and benefits of procedure and wished to proceed with the procedure. Consent was signed in the chart. DESCRIPTION OF PROCEDURE: The patient was taken to the endoscopy suite, placed in left lateral recumbent position. Timeout was performed. Scope was inserted in mouth, down the esophagus, stomach and into the duodenum without difficulty. There were no polyps, masses or ulcerations within the duodenum. Scope was then slowly retracted back into the stomach and further insufflated. No polyps, masses or ulcerations. Biopsy of the antrum was obtained. Scope was retroflexed noting a hiatal hernia, no other pathology. Scope was then slowly retracted back to the distal esophagus. Severe erosive esophagitis in the distal portion of the esophagus was present. Multiple biopsies were obtained. Esophageal brushings were obtained as well. Scope was then slowly retracted back noting no other pathology. Digital rectal exam was performed noting internal hemorrhoids. No palpable polyps, masses or ulcerations. Scope was inserted in the rectum and advanced all the way to cecum with minimal difficulty. Prep was adequate with irrigation and suction. Scope was then slowly retracted back. There were no polyps, masses or ulcerations visualized within the cecum, ascending, transverse, descending and sigmoid colon. In sigmoid colon, minimal amount of diverticulosis present. Scope was then continuously retracted back into the rectum where it was also retroflexed noting a large internal hemorrhoid. No other pathology. Scope was returned to its normal position, slowly withdrawn until completely removed. The patient tolerated procedure well without any complications and taken to recovery room in stable condition. RECOMMENDATIONS: The patient will need repeat EGD in 2 to 3 months to evaluate the esophagus depending upon pathology results. We will place on Protonix 40 mg b.i.d. and Carafate 1 gram four times a day. The patient will follow up in 2 weeks to discuss pathology results. The patient also recommended gastritis and ulcer diet, which is provided. The patient also recommended a repeat colonoscopy in 10 years unless family history of colon cancer, which then be 5 years. Any issues before that be seen at that time. We would consider hemorrhoidectomy if this is bothersome on the internal hemorrhoid. Source of bleeding could be from the erosive esophagitis or from hemorrhoids. If any return of symptoms should be reevaluated at that time. Job ID: [id number] DocumentID: [id number] Dictated Date: 01/05/2020 10:43:29 [employer] Technician Date: 01/05/2020 13:20:54 Dictated By: DO JOHANA LOYOLA
== END 2020-01-05 11:11 | disposition home or self-care (01) ==
LOC: ENDO 07:57
PROVIDERS: ATTEND Surgery
DX: K92.1 Melena (principal); K22.10 Ulcer of esophagus without bleeding; K57.30 Diverticulosis of large intestine without perforation or abscess without bleeding; K44.9 Diaphragmatic hernia without obstruction or gangrene; K64.8 Other hemorrhoids; I10 Essential (primary) hypertension; F41.9 Anxiety disorder, unspecified; F31.9 Bipolar disorder, unspecified; F17.200 Nicotine dependence, unspecified, uncomplicated; Z88.2 Allergy status to sulfonamides; Z88.5 Allergy status to narcotic agent; Z88.8 Allergy status to other drugs, medicaments and biological substances; Z79.899 Other long term (current) drug therapy; Z90.89 Acquired absence of other organs

== ENCOUNTER 2021-06-16 09:29 | Emergency (ER) | payer SELFPAY ==
[~2021-06-16] VITALS: Ht 185 cm; Wt 67.0 kg
[~2021-06-16 09:29] MED LIST changes: +PANT40TA2 PO; +SUCR1TAB36 PO
[2021-06-16] MEDS ORDERED: PANTOPRAZOLE 40 MG (PROTONIX) VIAL IV ONE (09:45)
[2021-06-16] MEDS ORDERED: FAMOTIDINE 20MG/2ML IV (PEPCID) IVP ONE (09:45)
--- NOTE | 2021-06-16 09:55 | ED General ---
General Chief Complaint: General Problems/Pain Stated Complaint: ABNORMAL LAB Nursing Triage Note: PT STATES HE WAS CALLED BY [facility] AND TOLD THAT HIS BLOOD LABS WERE LOW, HX OF ANEMIA. STATES SOB WHEN WALKING AROUND. ALSO HAS ANXIETY, STATES HE DID SMOKE METH LAST NIGHT. Source of Information: Patient, Old Records, Other ([facility] nursing staff) Exam Limitations: No Limitations History of Present Illness Date Seen by Provider: Jun 16, 2021 Time Seen by Provider: 09:35 Initial Comments This 50-year-old gentleman presents to the emergency room at the direction of the [facility] clinic. Nursing staff at [facility] report he had a hemoglobin of 5.4 on a specimen drawn on June 14. Patient reports feeling short of breath and very fatigued over the last several days. He also reports having some episodes of vomiting of dark stringy emesis. He is uncertain if this represents of blood or soda. He does have a prior history of suspected GI bleeding and had endoscopy performed by Dr. Mathis in December 2019. He was diagnosed with hiatal hernia, erosive esophagitis, and diverticulosis. He had been taking Carafate and Protonix but states he quit taking those because his throat stopped hurting. His throat is now hurting again. Patient does not drink alcohol but he does admit to using methamphetamines. He smoked meth last night. Allergies and Home Medications Allergies Coded Allergies: Sulfa (Sulfonamide Antibiotics) (Verified Allergy, Unknown, Vomiting, 10/29/19) codeine (Verified Allergy, Unknown, Itching, 10/29/19) pregabalin (Verified Allergy, Unknown, 08/17/18) Patient Home Medication List Home Medication List Reviewed: Yes Olanzapine (Zyprexa) 10 Mg Tablet, 10 MG PO BID, (Reported) Entered as Reported by: FIDE PLUMMER on 10/29/19 1650 Omeprazole (Omeprazole) 20 Mg Capsule., 20 MG PO BID Prescribed by: DK FLORES on 06/16/21 1238 Pantoprazole Sodium (Protonix) 40 Mg Tablet., 40 MG PO BID Prescribed by: TORO MATHIS on 01/05/20 1039 Sucralfate (Carafate) 1 Gm Tablet, 1 GM PO QID Prescribed by: TORO MATHIS on 01/05/20 1039 Sucralfate (Carafate) 1 Gm Tablet, 1 GM PO QID Prescribed by: DK FLORES on 06/16/21 1238 Review of Systems Review of Systems Constitutional: no symptoms reported EENTM: see HPI Respiratory: see HPI, short of breath Cardiovascular: no symptoms reported Gastrointestinal: see HPI Genitourinary: no symptoms reported Musculoskeletal: no symptoms reported Skin: no symptoms reported Psychiatric/Neurological: See HPI Hematologic/Lymphatic: No Symptoms Reported Immunological/Allergic: no symptoms reported Past Wdnpskm-Ipmbvo-Vzspvl Hx Patient Social History Tobacco Use?: Yes Tobacco type used: Cigarettes Substance use?: Yes Substance type: Methamphetamine Alcohol Use?: No Seasonal Allergies Seasonal Allergies: No Past Medical History Surgeries: Yes (LEFT LOWER LEG FX/ORIF, endoscopy) Adenoidectomy, Orthopedic, Tonsillectomy Respiratory: No Cardiac: Yes Hypertension Neurological: Yes (SEIZURES X 3--FELT TO BE FROM DRUG WITH DRAWL--DEPAKOTE, PER PT) Seizure Disorder Genitourinary: No Gastrointestinal: Yes Diverticulosis, Esophagitis, Hiatal Hernia Musculoskeletal: Yes (LEFT LOWER LEG FX/ORIF) Fractures Endocrine: No HEENT: No Cancer: No Psychosocial: Yes Eating Disorder, Anxiety, Suicide Attempts, Bipolar, Personality Disorder Integumentary: No Blood Disorders: No Adverse Reaction/Blood Tranf: No Family Medical History No Pertinent Family Hx Physical Exam Vital Signs Vital Signs - First Documented 06/16/21 09:35 Temp 36.1 Pulse 101 Resp 18 B/P (MAP) 135/73 (93) Pulse Ox 98 O2 Delivery Room Air Capillary Refill : Less Than 3 Seconds Height, Weight, BMI Height: 6'2.00" Weight: 137lbs. oz. [id number]; 19.00 BMI Method:Stated General Appearance: No Apparent Distress, WD/WN, Thin HEENT: PERRL/EOMI, Normal ENT Inspection Neck: Normal Inspection Respiratory: Lungs Clear, Normal Breath Sounds, No Accessory Muscle Use, No Respiratory Distress Cardiovascular: No Edema, No Murmur, Normal Peripheral Pulses, Tachycardia Gastrointestinal: Normal Bowel Sounds, Non Tender, Soft; No Distended Extremity: Normal Inspection, No Pedal Edema Neurologic/Psychiatric: Alert, Oriented x3, No Motor/Sensory Deficits, manager II- XII Norm as Tested, Other (Anxious) Skin: Warm/Dry, Pallor Progress/Results/Core Measures Suspected Sepsis SIRS Temperature: Pulse: 101 Respiratory Rate: 18 Laboratory Tests 06/16/21 09:45: White Blood Count 7.9 Blood Pressure 135 /73 Mean: 93 Laboratory Tests 06/16/21 09:45: Creatinine 0.96, INR Comment 1.0, Platelet Count 467H, Total Bilirubin 0.4 Results/Orders Lab Results Laboratory Tests Test 06/16/21 09:45 06/16/21 11:55 Range/Units White Blood Count 7.9 4.3-11.0 10^3/uL Red Blood Count 2.80 L 4.30-5.52 10^6/uL Hemoglobin 5.1 *L 13.3-17.7 g/dL Hematocrit 19 *L 40-54 % Mean Corpuscular Volume 67 L 80-99 fL Mean Corpuscular Hemoglobin 18 L 25-34 pg Mean Corpuscular Hemoglobin Concent 27 L 32-36 g/dL Red Cell Distribution Width 20.8 H 10.0-14.5 % Platelet Count 467 H 130-400 10^3/uL Mean Platelet Volume 8.4 L 9.0-12.2 fL Immature Granulocyte % (Auto) 0 % Neutrophils (%) (Auto) 72 42-75 % Lymphocytes (%) (Auto) 21 12-44 % Monocytes (%) (Auto) 7 0-12 % Eosinophils (%) (Auto) 0 0-10 % Basophils (%) (Auto) 0 0-10 % Neutrophils # (Auto) 5.7 1.8-7.8 10^3/uL Lymphocytes # (Auto) 1.7 1.0-4.0 10^3/uL Monocytes # (Auto) 0.5 0.0-1.0 10^3/uL Eosinophils # (Auto) 0.0 0.0-0.3 10^3/uL Basophils # (Auto) 0.0 0.0-0.1 10^3/uL Immature Granulocyte # (Auto) 0.0 0.0-0.1 10^3/uL Absolute Reticulocyte Count 62 24-90 10e9/uL Percent Reticulocyte Count 2.21 0.50-2.40 % Prothrombin Time 13.4 12.2-14.7 SEC INR Comment 1.0 0.8-1.4 Activated Partial Thromboplast Time 23 L 24-35 SEC Sodium Level 137 135-145 MMOL/L Potassium Level 3.3 L 3.6-5.0 MMOL/L Chloride Level 103 98-107 MMOL/L Carbon Dioxide Level 22 21-32 MMOL/L Anion Gap 12 5-14 MMOL/L Blood Urea Nitrogen 25 H 7-18 MG/DL Creatinine 0.96 0.60-1.30 MG/DL Estimat Glomerular Filtration Rate 83 BUN/Creatinine Ratio 26 Glucose Level 114 H 70-105 MG/DL Calcium Level 9.4 8.5-10.1 MG/DL Corrected Calcium 9.4 8.5-10.1 MG/DL Total Bilirubin 0.4 0.1-1.0 MG/DL Aspartate Amino Transf (AST/SGOT) 13 5-34 U/L Alanine Aminotransferase (ALT/SGPT) 8 0-55 U/L Alkaline Phosphatase 86 40-136 U/L Total Protein 7.3 6.4-8.2 GM/DL Albumin 4.0 3.2-4.5 GM/DL Lipase 36 8-78 U/L Urine Color DARK YELLOW Urine Clarity CLEAR Urine pH 6.0 5-9 Urine Specific Morrow 1.025 H 1.016-1.022 Urine Protein NEGATIVE NEGATIVE Urine Glucose (UA) NEGATIVE NEGATIVE Urine Ketones NEGATIVE NEGATIVE Urine Nitrite NEGATIVE NEGATIVE Urine Bilirubin NEGATIVE NEGATIVE Urine Urobilinogen 0.2 < = 1.0 MG/DL Urine Leukocyte Esterase NEGATIVE NEGATIVE Urine RBC (Auto) NEGATIVE NEGATIVE Urine RBC NONE /HPF Urine WBC RARE /HPF Urine Squamous Epithelial Cells NONE /HPF Urine Crystals NONE /LPF Urine Bacteria NEGATIVE /HPF Urine Casts NONE /LPF Urine Mucus NEGATIVE /LPF Urine Culture Indicated NO My Orders Orders - DK HAGAN MD Cbc With Automated Diff (06/16/21 09:40) Comprehensive Metabolic Panel (06/16/21 09:40) Lipase (06/16/21 09:40) Protime With Inr (06/16/21 09:40) Partial Thromboplastin Time (06/16/21 09:40) Ua Culture If Indicated (06/16/21 09:40) Ed Iv/Invasive Line Start (06/16/21 09:40) Pantoprazole Injection (Protonix Injecti (06/16/21 09:45) Famotidine Injection (Pepcid Injection) (06/16/21 09:45) Red Cells Leukocytes Reduced (06/16/21 09:47) Iron Tibc %Sat & Ferritin (06/16/21 09:49) Reticulocyte Count (06/16/21 09:49) Type And Screen (06/16/21 09:47) Ns Iv 1000 Ml (Sodium Chloride 0.9%) (06/16/21 10:15) Medications Given in ED Current Medications Medications Dose Ordered Sig/Noe Route Start Time Stop Time Status Last Admin Dose Admin Famotidine 20 mg ONCE ONCE IVP 06/16/21 09:45 06/16/21 09:46 DC 06/16/21 10:11 20 MG Pantoprazole 80 mg ONCE ONCE IV 06/16/21 09:45 06/16/21 09:46 DC 06/16/21 10:11 80 MG Vital Signs/I&O 06/16/21 06/16/21 06/16/21 06/16/21 09:35 10:57 10:57 11:02 Temp 36.1 36.5 36.5 36.5 Pulse 101 89 89 91 Resp 18 18 18 18 B/P (MAP) 135/73 (93) 117/75 117/75 106/73 Pulse Ox 98 100 100 O2 Delivery Room Air Room Air Room Air Room Air 06/16/21 06/16/21 06/16/21 11:12 12:17 12:31 Temp 36.4 36.6 36.6 Pulse 86 83 88 Resp 18 18 18 B/P (MAP) 113/70 117/81 127/89 Pulse Ox 100 100 100 O2 Delivery Room Air Room Air Room Air Capillary Refill : Less Than 3 Seconds Blood Pressure Mean: 93 Departure Impression Primary Impression: Severe anemia Additional Impressions: Hematemesis Qualified Codes: K92.0 - Hematemesis Methamphetamine abuse Disposition: 01 HOME, SELF-CARE Condition: Improved Departure-Patient Inst. Decision time for Depature: 12:33 Referrals: [facility] (PCP) Primary Care Physician DELORIS RAJAN (Family) Primary Care Physician TORO MATHIS DO Patient Instructions: Drug Abuse and Drug Addiction (DC), Gastrointestinal Bleeding Add. Discharge Instructions: Start antiacid therapy such as omeprazole and Carafate again. Follow-up with Dr. Mathis soon as possible. Please call his office on Saturday morning to arrange follow-up. Please also follow-up with your primary care provider as soon as possible and to call their office this weekend to make an appointment. Avoid the following: Eating large meals, eating close to bedtime, caffeine, carbonation, citrus fruits and juices, tomato products, mints, alcohol, tobacco, illicit substances such as methamphetamines, spicy foods, fatty or greasy foods, NSAID medications such as ibuprofen or naproxen, or anything else you know irritate your stomach. These things can increase acid reflux, irritation of your hiatal hernia, and worsening nausea or gastrointestinal bleeding. Abstain from illicit substances such as methamphetamine and seek assistance from a qualified treatment center if you are unable to abstain. Call with questions or concerns. Return to the ER if you have worsening symptoms. All discharge instructions reviewed with patient and/or family. Voiced understanding. Scripts Omeprazole (Omeprazole) 20 Mg Capsule. 20 MG PO BID, #60 CAP Prov: DK HAGAN MD 06/16/21 Sucralfate (Carafate) 1 Gm Tablet 1 GM PO QID, #120 TAB Crush and mix or dissolve into 5 to 10 mL water to make a slurry. Take 30 minutes before meals and bedtime. Prov: DK HAGAN MD 06/16/21 DK HAGAN MD Jun 16, 2021 09:55
[2021-06-16 10:00] LABS: ABSOLUTE RETIC # 62 10e9/uL (24-90); BASOPHILS % (AUTO) 0 % (0-10); EOSINOPHILS % (AUTO) 0 % (0-10); LYMPHOCYTES # (AUTO) 1.7 10^3/uL (1.0-4.0); LYMPHOCYTES % (AUTO) 21 % (12-44); MEAN CORPUSCULAR HEMOGLOBIN 18 pg (25-34); MEAN CORPUSCULAR HGB CONC 27 g/dL (32-36); MEAN CORPUSCULAR VOLUME 67 fL (80-99); MEAN PLATELET VOLUME 8.4 fL (9.0-12.2); MONOCYTES # (AUTO) 0.5 10^3/uL (0.0-1.0); MONOCYTES % (AUTO) 7 % (0-12); NEUTROPHILS # (AUTO) 5.7 10^3/uL (1.8-7.8); NEUTROPHILS % (AUTO) 72 % (42-75); PLATELET COUNT 467 10^3/uL (130-400); RETICULOCYTE % 2.21 % (0.50-2.40); WHITE BLOOD COUNT 7.9 10^3/uL (4.3-11.0)
[2021-06-16 10:03] LABS: HEMATOCRIT 19 % (40-54); HEMOGLOBIN 5.1 g/dL (13.3-17.7)
[2021-06-16 10:10] LABS: POTASSIUM 3.3 MMOL/L (3.6-5.0)
[2021-06-16 10:11] LABS: CALCIUM 9.4 MG/DL (8.5-10.1); PROTHROMBIN TIME PATIENT 13.4 SEC (12.2-14.7)
[2021-06-16 10:12] LABS: TOTAL PROTEIN 7.3 GM/DL (6.4-8.2)
[2021-06-16 10:14] LABS: BILIRUBIN,TOTAL 0.4 MG/DL (0.1-1.0)
[2021-06-16] MEDS ORDERED: NS IV 1000 ML 1,000 ML IV SCH (10:15)
[2021-06-16 10:16] LABS: CREATININE SERUM 0.96 MG/DL (0.60-1.30)
[2021-06-16 10:57] VITALS: BP 117/75
[2021-06-16 11:12] VITALS: BP 113/70
[2021-06-16 12:04] LABS: BILIRUBIN,URINE NEGATIVE (NEGATIVE); CLARITY,URINE CLEAR; COLOR,URINE DARK YELLOW; GLUCOSE, URINE (UA) NEGATIVE (NEGATIVE); KETONES,URINE NEGATIVE (NEGATIVE); LEUKOCYTE ESTERASE ,URINE NEGATIVE (NEGATIVE); NITRITE,URINE NEGATIVE (NEGATIVE); PROTEIN,URINE NEGATIVE (NEGATIVE)
[2021-06-16 12:13] LABS: BACTERIA,URINE NEGATIVE /HPF; WBC,URINE RARE /HPF
[2021-06-16 12:17] VITALS: BP 117/81
[2021-06-16 12:31] VITALS: BP 127/89
[2021-06-16] MEDS ORDERED: SUCR1TAB36 PO (12:38)
[2021-06-16] MEDS ORDERED: OMEP20CA18 PO (12:38)
[2021-06-16 12:46] VITALS: BP 124/85
[2021-06-16 13:50] VITALS: BP 130/86
== END 2021-06-16 14:00 | disposition home or self-care (01) ==
LOC: EDUNIT# 09:29 → ER 09:31
DX: D64.9 Anemia, unspecified (principal); K92.0 Hematemesis; F15.10 Other stimulant abuse, uncomplicated; R00.0 Tachycardia, unspecified; I10 Essential (primary) hypertension; F31.9 Bipolar disorder, unspecified; Z72.0 Tobacco use; Z79.899 Other long term (current) drug therapy
CPT/HCPCS: 80053; 81000; 82728; 83540; 83550; 83690; 85025; 85045; 85610; 85730; 86850; 86900; 86901; 86920; 99284; P9016; 36415

== ENCOUNTER → 2021-09-18 | Outpatient (RCR) | payer SELFPAY ==
[~2021-09-18] VITALS: Ht 188 cm; Wt 158.0 kg
[~2021-09-18] MED LIST changes: +DIVA250T2 PO; +OLAN15TA3 PO; +OMEP20CA18 PO
== END | disposition home or self-care (01) ==
LOC: PREOP 05:38
PROVIDERS: ATTEND Surgery
DX: Z01.818 Encounter for other preprocedural examination (principal)

== ENCOUNTER 2021-09-26 10:18 | Day surgery (SDC) | payer OTHER ==
[~2021-09-26] VITALS: Ht 188 cm; Wt 158.0 kg
[2021-09-26] MEDS ORDERED: LACTATED RINGERS 1,000 ML IV ONE (10:27)
[2021-09-26] MEDS ORDERED: HURRICAINE EXT TUBE (BENZOCAINE) XX PRN (10:30)
[2021-09-26] MEDS ORDERED: LACTATED RINGERS 1,000 ML IV STA (10:30)
[2021-09-26 10:53] VITALS: BP 112/76
[2021-09-26] MEDS ORDERED: MIDAZOLAM 2 MG/2 ML (VERSED) VIAL ONE (12:47)
[2021-09-26] MEDS ORDERED: PROPOFOL INJECTION 50 ML IV ONE (12:48)
[2021-09-26 13:35] VITALS: BP 90/50
--- NOTE | 2021-09-26 13:36 | Progress Note-Post Operative ---
Post-Operative Progess Note Surgeon (s)/Retail Sales Assistant (s) Surgeon TORO MATHIS DO Retail Sales Assistant: na Pre-Operative Diagnosis anemia Post-Operative Diagnosis erosive esophagitis/stricture, normal colon Procedure & Operative Findings Date of Procedure 09/26/21 Procedure Performed/Findings EGD w/ GEJ bx x4, colonoscopy Anesthesia Type per MDA Estimated Blood Loss Estimated blood loss (mL): none Specimens/Packing Specimens Removed TORO URIBE DO Sep 26, 2021 13:36
[2021-09-26] MEDS ORDERED: SUCR1TAB36 PO (13:37)
[2021-09-26] MEDS ORDERED: PANT40TA2 PO (13:37)
--- NOTE | 2021-09-26 13:38 | Discharge Inst-Simple/Standard ---
Discharge Inst-Standard Discharge Medications New, Converted or Re-Newed RX: Transmitted to Pharmacy Patient Instructions/Follow Up Plan of Care/Instructions/FU: 2 weeks mariela With carafate, make it into a slurry before taking. Activity as Tolerated: Yes Discharge Diet: Liquid Diet (2 days then advance as tolerates) TORO MATHIS DO Sep 26, 2021 13:38
[2021-09-26 13:42] VITALS: BP 116/67
[2021-09-26 14:10] VITALS: BP 145/79
--- NOTE | 2021-09-26 14:41 | Anesthesia-General Post-Op ---
MAC Patient Condition Mental Status/LOC: Same as Preop Cardiovascular: Satisfactory Nausea/Vomiting: Absent Respiratory: Satisfactory Pain: Controlled Complications: Absent Post Op Complications Complications None Follow Up Care/Instructions Patient Instructions None needed. Anesthesiology Discharge Order Discharge Order Patient was doing well after the procedure, no complaints, stable vital signs, no apparent adverse anesthesia problems. HARMONY DAO DO Sep 26, 2021 14:41
--- NOTE | 2021-09-26 19:06 | OPERATIVE REPORT ---
DATE OF SERVICE: 09/26/2021 PREOPERATIVE DIAGNOSIS: Anemia. POSTOPERATIVE DIAGNOSES: Erosive esophagitis/stricture, normal colon. PROCEDURE: EGD with biopsies of the GE junction and colonoscopy. SURGEON: Toro Hamilton DO ANESTHESIA: Per MDA. ESTIMATED BLOOD LOSS: Scant. COMPLICATIONS: None. INDICATIONS: The patient is a 50-year-old male with anemia. He understands risks and benefits of procedure and wishes to proceed. Consent was signed in the chart. DESCRIPTION OF PROCEDURE: The patient was taken to the endoscopy suite, placed in left lateral recumbent position. Timeout was performed. Scope was inserted in mouth, down the esophagus and the distal esophagus stricture is present with evidence of erosive esophagitis. Scope was able to be slowly passed through this area of narrowing into the stomach. Scope was continuously inserted through the pylorus and visualizing portion of the duodenum. No polyps, masses or ulcerations in the duodenum. Scope was slowly retracted back into the stomach where it was further insufflated. No polyps, masses or ulcerations. Scope was retroflexed noting the narrowing around the GE junction. Scope was returned to its normal position, slowly withdrawn, significant inflammation in the distal esophagus. Multiple biopsies of this area were obtained. Scope was then slowly retracted back until completely remove, noting no other pathology. Digital rectal exam was performed. No palpable polyps, masses or ulcerations. Scope was inserted in the rectum and advanced all the way to cecum with minimal difficulty. Prep was adequate. Scope was slowly retracted back. No polyps, masses or ulcerations in the cecum, ascending, transverse, descending and sigmoid colon. Once in the rectum, scope was retroflexed noting no other pathology. Scope was returned to its normal position, slowly withdrawn until completely removed. The patient tolerated the procedure well without any complications, taken to recovery room in stable condition. RECOMMENDATIONS: The patient to be started on Protonix 40 mg daily and Carafate 1 gram four times a day. The patient will follow up in the office in 2 weeks to discuss pathology results and see how he is doing. The patient to be on a liquid diet for 2 days and slowly advance as tolerates. The patient will need repeat EGD in approximately 6 weeks. Any issues before that be seen at that time. CC: Jozef Trujillo PA-C - requested, unable to deliver. Job ID: [id number] DocumentID: [id number] Dictated Date: 09/26/2021 13:41:44 Tester Electronic Scale Date: 09/26/2021 19:05:26 Dictated By: TORO HAMILTON DO
== END 2021-09-26 14:27 | disposition home or self-care (01) ==
LOC: ENDO 10:18
PROVIDERS: ATTEND Surgery
DX: K22.10 Ulcer of esophagus without bleeding (principal); K22.2 Esophageal obstruction; D50.9 Iron deficiency anemia, unspecified; K44.9 Diaphragmatic hernia without obstruction or gangrene; F17.210 Nicotine dependence, cigarettes, uncomplicated; Z98.890 Other specified postprocedural states

== ENCOUNTER 2021-10-26 05:34 | Outpatient (CLI) | payer SELFPAY ==
[~2021-10-26] VITALS: Ht 188 cm; Wt 71.8 kg
[2021-10-26] MEDS ORDERED: DIVA125T32 PO (10:25)
[2021-10-26] MEDS ORDERED: PANT40TA52 PO (10:25)
[2021-10-26] MEDS ORDERED: SUCR1TAB PO (10:25)
== END 2021-10-26 10:34 | disposition home or self-care (01) ==
LOC: PREOP 05:34
PROVIDERS: ATTEND Surgery
DX: Z01.818 Encounter for other preprocedural examination (principal)

== ENCOUNTER → 2021-11-02 | Outpatient (CLI) | payer OTHER ==
[~2021-11-02] MED LIST changes: +DIVA125T32 PO; +PANT40TA52 PO
[2021-11-02 14:08] LABS: BASOPHILS % (AUTO) 0 % (0-10); EOSINOPHILS # (AUTO) 0.4 10^3/uL (0.0-0.3); EOSINOPHILS % (AUTO) 7 % (0-10); HEMATOCRIT 33 % (40-54); HEMOGLOBIN 9.9 g/dL (13.3-17.7); LYMPHOCYTES # (AUTO) 2.3 10^3/uL (1.0-4.0); LYMPHOCYTES % (AUTO) 47 % (12-44); MEAN CORPUSCULAR HEMOGLOBIN 23 pg (25-34); MEAN CORPUSCULAR HGB CONC 30 g/dL (32-36); MEAN CORPUSCULAR VOLUME 75 fL (80-99); MEAN PLATELET VOLUME 8.4 fL (9.0-12.2); MONOCYTES # (AUTO) 0.4 10^3/uL (0.0-1.0); MONOCYTES % (AUTO) 9 % (0-12); NEUTROPHILS # (AUTO) 1.8 10^3/uL (1.8-7.8); NEUTROPHILS % (AUTO) 37 % (42-75); PLATELET COUNT 425 10^3/uL (130-400); WHITE BLOOD COUNT 4.9 10^3/uL (4.3-11.0)
== END ==
LOC: LAB 13:48
PROVIDERS: ATTEND Surgery
DX: D50.9 Iron deficiency anemia, unspecified (principal)
CPT/HCPCS: 36415; 85025

== ENCOUNTER 2021-11-30 06:43 | Outpatient (CLI) | payer SELFPAY | END 2021-11-30 12:25 | disposition home or self-care (01) | LOC: PREOP 06:43 | PROVIDERS: ATTEND Surgery | DX: Z01.818 Encounter for other preprocedural examination (principal) ==

== ENCOUNTER → 2021-12-04 | Outpatient (CLI) | payer OTHER ==
[2021-12-04 10:54] LABS: BASOPHILS % (AUTO) 0 % (0-10); EOSINOPHILS # (AUTO) 0.2 10^3/uL (0.0-0.3); EOSINOPHILS % (AUTO) 2 % (0-10); HEMATOCRIT 32 % (40-54); HEMOGLOBIN 9.1 g/dL (13.3-17.7); LYMPHOCYTES # (AUTO) 1.7 10^3/uL (1.0-4.0); LYMPHOCYTES % (AUTO) 16 % (12-44); MEAN CORPUSCULAR HEMOGLOBIN 21 pg (25-34); MEAN CORPUSCULAR HGB CONC 29 g/dL (32-36); MEAN CORPUSCULAR VOLUME 74 fL (80-99); MEAN PLATELET VOLUME 8.2 fL (9.0-12.2); MONOCYTES # (AUTO) 0.9 10^3/uL (0.0-1.0); MONOCYTES % (AUTO) 9 % (0-12); NEUTROPHILS # (AUTO) 7.6 10^3/uL (1.8-7.8); NEUTROPHILS % (AUTO) 73 % (42-75); PLATELET COUNT 656 10^3/uL (130-400); WHITE BLOOD COUNT 10.4 10^3/uL (4.3-11.0)
== END ==
LOC: LAB 10:24
PROVIDERS: ATTEND Surgery
DX: D50.9 Iron deficiency anemia, unspecified (principal)
CPT/HCPCS: 36415; 85025

== ENCOUNTER 2021-12-12 11:34 | Day surgery (SDC) | payer OTHER ==
[~2021-12-12] VITALS: Ht 188 cm; Wt 71.8 kg
[2021-12-12] MEDS ORDERED: LACTATED RINGERS 1,000 ML IV ONE (11:38)
[2021-12-12] MEDS ORDERED: LACTATED RINGERS 1,000 ML IV STA (11:45)
[2021-12-12] MEDS ORDERED: HURRICAINE EXT TUBE (BENZOCAINE) XX PRN (11:45)
[2021-12-12 11:50] VITALS: BP 120/77
[2021-12-12 12:08] LABS: AMPHETAMINE SCREEN, URINE POSITIVE (NEGATIVE); BARBITURATE SCREEN URINE NEGATIVE (NEGATIVE); BENZODIAZEPINES SCREEN URINE NEGATIVE (NEGATIVE); CANNABINOID SCREEN, URINE NEGATIVE (NEGATIVE); COCAINE SCREEN URINE NEGATIVE (NEGATIVE); METHADONE STAT NEGATIVE (NEGATIVE); OPIATE SCREEN URINE NEGATIVE (NEGATIVE); OXYCODONE STAT NEGATIVE (NEGATIVE); PROPOXYPHENE STAT NEGATIVE (NEGATIVE); TRICYCLIC ANTIDEPRESSANTS SCRE NEGATIVE (NEGATIVE)
== END 2021-12-12 13:35 | disposition home or self-care (01) ==
LOC: ENDO 11:34
PROVIDERS: ATTEND Surgery
DX: K22.10 Ulcer of esophagus without bleeding (principal); D50.9 Iron deficiency anemia, unspecified; F17.210 Nicotine dependence, cigarettes, uncomplicated; Z79.899 Other long term (current) drug therapy; Z53.8 Procedure and treatment not carried out for other reasons
CPT/HCPCS: 80306

== ENCOUNTER → 2022-01-01 | Outpatient (CLI) | payer SELFPAY | END | disposition home or self-care (01) | LOC: PREOP 05:36 | PROVIDERS: ATTEND Surgery | DX: Z01.818 Encounter for other preprocedural examination (principal) ==

== ENCOUNTER 2022-07-29 16:20 | Inpatient (IN) | payer SELFPAY ==
[~2022-07-29] VITALS: Ht 187 cm; Wt 62.9 kg
[2022-07-29] MEDS ORDERED: ACETAMINOPHEN 500 MG TAB (TYLENOL) PO PRN (18:30)
[2022-07-29] MEDS ORDERED: VANCOMYCIN INJECTION 750 MG in NS (IVPB) 100 ML IV ONE (18:30)
[2022-07-29] MEDS ORDERED: PIPERACILLIN SODIUM/TAZOBACTAM 4.5 GM in NS (IVPB) 100 ML IV ONE (18:30)
[2022-07-29] MEDS ORDERED: LORazepam 0.5 MG (ATIVAN) TABLET PO STA (18:35)
--- NOTE | 2022-07-29 18:39 | ED General ---
General Chief Complaint: Skin/Wound Problems Stated Complaint: RIGHT ARM LACERATION, NECK SWOLLEN Nursing Triage Note: PT AMB TO TRIAGE, PT CO OF R SIDE NECK SWELLING AND R FA SWELLING FROM SHOOTING UP METH AND FENT LAST WEEK. STATES STARTED SWELLING UP ON SATURDAY. PT HAS PAIN /, AREAS ARE REDDEND SWOLLEN AND PAINFUL, R ARM HAS OPEN WOUND Source of Information: Patient Exam Limitations: No Limitations History of Present Illness Date Seen by Provider: Jul 29, 2022 Time Seen by Provider: 17:50 Initial Comments 51-year-old male with past medical history mostly notable for mental health problems as well as polysubstance use disorder coming in due to concerns for an infection. He states he had been doing well and off drugs for some time, and within the past week he used IV drugs, methamphetamine and likely fentanyl into his right arm and right side of his neck. He noticed swelling on Saturday and now severe pain and redness with worsening swelling. He has an open wound to his right arm which he had a friend pack for him. He has not seen a physician for this. Does not believe he has had a fever. Denies any voice changes, difficulty opening his mouth, difficulty swallowing, chest pain, shortness of breath, abdominal pain, nausea, vomiting, diarrhea, focal weakness or numbness, headache, or any other concerns. He does state he drank alcohol today. Allergies and Home Medications Allergies Coded Allergies: Sulfa (Sulfonamide Antibiotics) (Verified Allergy, Unknown, Vomiting, 10/29/19) codeine (Verified Allergy, Unknown, Itching, 10/29/19) lurasidone (Unverified Allergy, Unknown, 09/19/21) pregabalin (Verified Allergy, Unknown, 08/17/18) Patient Home Medication List Home Medication List Reviewed: Yes Divalproex Sodium (Divalproex Sodium) 125 Mg Tablet.dr, 375 MG PO HS, (Reported) Entered as Reported by: JUAN MANUEL JENKINS on 10/26/21 1025 Olanzapine (Zyprexa) 15 Mg Tablet, 15 MG PO DAILY, (Reported) Entered as Reported by: GREGORIO PEPE on 09/19/21 1338 Pantoprazole Sodium (Pantoprazole Sodium) 40 Mg Tablet.dr, 40 MG PO DAILY, (Reported) Entered as Reported by: JUAN MANUEL JENKINS on 10/26/21 1025 Sucralfate (Sucralfate) 1 Gm Tablet, 1 GM PO QID, (Reported) Entered as Reported by: JUAN MANUEL JENKINS on 10/26/21 1025 Review of Systems Review of Systems Constitutional: No fever EENTM: no symptoms reported Respiratory: no symptoms reported Cardiovascular: no symptoms reported Gastrointestinal: no symptoms reported Genitourinary: no symptoms reported Musculoskeletal: no symptoms reported Skin: see HPI Psychiatric/Neurological: No Symptoms Reported Hematologic/Lymphatic: No Symptoms Reported Immunological/Allergic: no symptoms reported All Other Systems Reviewed Negative Unless Noted: Yes Past Fykknqv-Bhoept-Dskxwl Hx Patient Social History Tobacco Use?: Yes Tobacco type used: Cigarettes Smoking Status: Current Everyday Smoker Substance type: Methamphetamine, Opiates/Opioids, Marijuana Substance frequency: Couple times a week Alcohol Use?: Yes Alcohol type: Hard Liquor Alcohol Frequency: Once in a while Pt feels they are or have been: No Immunizations Up To Date Influenza Vaccine Up-to-Date: No; Not Current First/Initial COVID19 Vaccinat: 12/20/20 Second COVID19 Vaccination [place]: 06/11 Third COVID19 Vaccination Date: NO Seasonal Allergies Seasonal Allergies: No Past Medical History Surgery/Hospitalization HX: HX OF ANEMIA NO KNOWN CAUSE Surgeries: Yes (LEFT LOWER LEG FX/ORIF, endoscopy) Adenoidectomy, Orthopedic, Tonsillectomy Respiratory: No Cardiac: Yes Hypertension Neurological: Yes (SEIZURES X 3--FELT TO BE FROM DRUG WITH DRAWL--DEPAKOTE, PER PT) Seizure Disorder Genitourinary: No Gastrointestinal: Yes Diverticulosis, Esophagitis, Hiatal Hernia Musculoskeletal: Yes (LEFT LOWER LEG FX/ORIF) Fractures Endocrine: No HEENT: No Cancer: No Psychosocial: Yes Eating Disorder, Anxiety, Suicide Attempts, Bipolar, Personality Disorder Integumentary: No Blood Disorders: No Adverse Reaction/Blood Tranf: No Family Medical History No Pertinent Family Hx Physical Exam Vital Signs Vital Signs - First Documented 07/29/22 17:00 Temp 36.6 Pulse 99 Resp 18 B/P (MAP) 179/101 (127) Pulse Ox 96 Capillary Refill : Less Than 3 Seconds Height, Weight, BMI Height: 6'2.00" Weight: 137lbs. oz. [id number]; 19.00 BMI Method:Stated General Appearance: WD/WN, Anxious Eyes: Bilateral Eye Normal Inspection HEENT: PERRL/EOMI, Normal ENT Inspection, Pharynx Normal Neck: Full Range of Motion, Supple, Other Respiratory: Chest Non Tender, Lungs Clear, Normal Breath Sounds, No Accessory Muscle Use, No Respiratory Distress Cardiovascular: Regular Rate, Rhythm, No Edema, Normal Peripheral Pulses Gastrointestinal: Normal Bowel Sounds, Non Tender, Soft; No Distended, No Guarding Back: Normal Inspection, No CVA Tenderness, No Vertebral Tenderness Extremity: Normal Capillary Refill, Other (Open wound to the right forearm that is packed with some overlying cellulitis, obvious cellulitis, swelling, fluctuance to the right lower part of his neck) Neurologic/Psychiatric: Alert, Oriented x3, No Motor/Sensory Deficits, Normal Mood/Affect Skin: Normal Color, Warm/Dry Lymphatic: No Adenopathy Focused Exam Lactate Level 07/29/22 18:30: Lactic Acid Level 1.25 Lactic Acid Level Laboratory Tests Test 07/29/22 18:30 Lactic Acid Level 1.25 MMOL/L (0.50-2.00) Procedures/Interventions I&D : Site: right side of neck Blade Size: 11 I & D Procedure: gauze wick placed, Wound Packing Packing/Drain: Idoform 07/25 Progress 5 cc of 1% lidocaine were infiltrated with a 25-gauge needle to the area to numb it. Ultrasound guidance was used in real-time with a single stab incision that was then lengthened to roughly 1-1/2 cm taking care to avoid any vascular structures which were far away from the incision site. copious amounts of purulent drainage noted. The wound was packed given likelihood for need for more drainage. Patient tolerated the procedure well. Progress/Results/Core Measures Suspected Sepsis SIRS Temperature: Pulse: 99 Respiratory Rate: 18 Laboratory Tests 07/29/22 18:30: White Blood Count 23.0H Blood Pressure 179 /101 Mean: 127 07/29/22 18:30: Lactic Acid Level 1.25 Laboratory Tests 07/29/22 18:30: Creatinine 0.78, INR Comment 1.0, Platelet Count 656H, Total Bilirubin 0.4 Results/Orders Lab Results Laboratory Tests Test 07/29/22 18:30 Range/Units White Blood Count 23.0 H 4.3-11.0 10^3/uL Red Blood Count 4.92 4.30-5.52 10^6/uL Hemoglobin 11.5 L 13.3-17.7 g/dL Hematocrit 36 L 40-54 % Mean Corpuscular Volume 73 L 80-99 fL Mean Corpuscular Hemoglobin 23 L 25-34 pg Mean Corpuscular Hemoglobin Concent 32 32-36 g/dL Red Cell Distribution Width 20.8 H 10.0-14.5 % Platelet Count 656 H 130-400 10^3/uL Mean Platelet Volume 8.0 L 9.0-12.2 fL Immature Granulocyte % (Auto) 1 % Neutrophils (%) (Auto) 86 H 42-75 % Lymphocytes (%) (Auto) 5 L 12-44 % Monocytes (%) (Auto) 6 0-12 % Eosinophils (%) (Auto) 1 0-10 % Basophils (%) (Auto) 0 0-10 % Neutrophils # (Auto) 19.7 H 1.8-7.8 10^3/uL Lymphocytes # (Auto) 1.3 1.0-4.0 10^3/uL Monocytes # (Auto) 1.4 H 0.0-1.0 10^3/uL Eosinophils # (Auto) 0.3 0.0-0.3 10^3/uL Basophils # (Auto) 0.1 0.0-0.1 10^3/uL Immature Granulocyte # (Auto) 0.2 H 0.0-0.1 10^3/uL Neutrophils % (Manual) 84 % Lymphocytes % (Manual) 5 % Monocytes % (Manual) 7 % Eosinophils % (Manual) 2 % Band Neutrophils 1 % Reactive Lymphocytes 1 % Hypochromasia MODERATE Anisocytosis SLIGHT Microcytosis SLIGHT Erythrocyte Sedimentation Rate 71 H 0-30 MM/HR Prothrombin Time 13.6 12.2-14.7 SEC INR Comment 1.0 0.8-1.4 Activated Partial Thromboplast Time 42 H 24-35 SEC Sodium Level 138 135-145 MMOL/L Potassium Level 3.3 L 3.6-5.0 MMOL/L Chloride Level 101 98-107 MMOL/L Carbon Dioxide Level 22 21-32 MMOL/L Anion Gap 15 H 5-14 MMOL/L Blood Urea Nitrogen 8 7-18 MG/DL Creatinine 0.78 0.60-1.30 MG/DL Estimat Glomerular Filtration Rate 107 BUN/Creatinine Ratio 10 Glucose Level 96 70-105 MG/DL Lactic Acid Level 1.25 0.50-2.00 MMOL/L Calcium Level 10.0 8.5-10.1 MG/DL Corrected Calcium 10.2 H 8.5-10.1 MG/DL Total Bilirubin 0.4 0.1-1.0 MG/DL Aspartate Amino Transf (AST/SGOT) 17 5-34 U/L Alanine Aminotransferase (ALT/SGPT) 22 0-55 U/L Alkaline Phosphatase 128 40-136 U/L C-Reactive Protein High Sensitivity 39.63 H 0.00-0.50 MG/DL Total Protein 8.3 H 6.4-8.2 GM/DL Albumin 3.7 3.2-4.5 GM/DL Serum Alcohol < 10 <10 MG/DL My Orders Orders - DANA BORJAS MD Cbc With Automated Diff (07/29/22 18:19) Comprehensive Metabolic Panel (07/29/22 18:19) Blood Culture (07/29/22 18:19) Protime With Inr (07/29/22 18:19) Partial Thromboplastin Time (07/29/22 18:19) Acetaminophen Tablet (Tylenol Tablet) (07/29/22 18:30) Ed Iv/Invasive Line Start (07/29/22 18:19) Ed Iv/Invasive Line Start (07/29/22 18:19) Vital Signs Adult Sepsis Patie Q15M (07/29/22 18:19) O2 (07/29/22 18:19) Remove Rings In Anticipation O (07/29/22 18:19) Lactic Acid Analyzer (07/29/22 18:19) Ns Iv 1000 Ml (Sodium Chloride 0.9%) (07/29/22 18:30) Piperacillin Sodium/Tazobactam (Zosyn Vi (07/29/22 18:30) Vancomycin Injection (Vancomycin Injecti (07/29/22 18:30) Vancomycin Injection (Vancomycin Injecti (07/29/22 19:30) Ct Neck (Soft Tissue) W (07/29/22 18:19) Alcohol (07/29/22 18:19) Hs C Reactive Protein (07/29/22 18:19) Erythrocyte Sedimentation Rate (07/29/22 18:19) Drug Screen Stat (Urine) (07/29/22 18:19) Iohexol Injection (Omnipaque 350 Mg/Ml 1 (07/29/22 18:45) Received Contrast (Hold Metformin- Contr (07/29/22 18:45) Ns (Ivpb) (Sodium Chloride 0.9% Ivpb Bag (07/29/22 18:45) Lorazepam Tablet (Ativan Tablet) (07/29/22 18:35) Manual Differential (07/29/22 18:30) Lorazepam Tablet (Ativan Tablet) (07/29/22 19:01) Wound Culture (07/29/22 19:34) Lidocaine/Epi 2% 1:100,000 (Xylocaine/Ep (07/29/22 19:45) Lidocaine 1% Inj 20 Ml (Xylocaine 1% Inj (07/29/22 20:23) Medications Given in ED Current Medications Medications Dose Ordered Sig/Noe Route Start Time Stop Time Status Last Admin Dose Admin Acetaminophen 1,000 mg ONCE PRN PO 07/29/22 18:30 07/29/22 18:58 DC 07/29/22 18:58 1,000 MG Iohexol 100 ml ONCE ONCE IV 07/29/22 18:45 07/29/22 18:46 DC 07/29/22 19:10 75 ML Lidocaine HCl 20 ml STK-MED ONCE .ROUTE 07/29/22 20:23 07/29/22 20:27 DC 07/29/22 20:50 20 ML Piperacillin Sod/ Tazobactam Sod 4.5 gm/Sodium Chloride 100 ml @ 200 mls/hr ONCE ONCE IV 07/29/22 18:30 07/29/22 18:59 DC 07/29/22 19:32 200 MLS/HR Vancomycin HCl 500 mg/Sodium Chloride 100 ml @ 100 mls/hr ONCE ONCE IV 07/29/22 19:30 07/29/22 20:29 DC 07/29/22 20:08 100 MLS/HR Vital Signs/I&O 07/29/22 17:00 Temp 36.6 Pulse 99 Resp 18 B/P (MAP) 179/101 (127) Pulse Ox 96 Capillary Refill : Less Than 3 Seconds Blood Pressure Mean: 127 Progress Note : Progress Note 51-year-old male with above history coming in due to concerns for infected wound. He clearly has an abscess with overlying cellulitis of the right side of his neck. The wound to his right forearm looks like it was an abscess that opened up, does not acutely appear infected. This was cleaned and we will dress it. CT soft tissue neck with contrast showing the abscess in the neck. I contacted our surgeon, Dr. Hamilton, to discuss the case and reviewed the CT with him. Discussed taking him to the OR vs drainage in the ED. We will go ahead and do a single stab incision and try to drain as much as possible while in the ER. He will then consult with the patient while admitted to the hospital. He was given IV vancomycin. Inflammatory markers markedly elevated as well as his white blood cell count. Vital signs otherwise relatively unremarkable with no systemic signs of sepsis. Lactic acid also normal. I contacted Dr. Jones who admit the patient under observation status for further evaluation and management. Discussed that the patient is an IV opioid user, pain control will likely be an issue, and we believe he is better served with NSAIDs and Tylenol while admitted. Pain control should be a lot better now that the abscess is drained. Diagnostic Imaging Diagonstic Imaging: CT (soft tissue neck) Comments [facility]. [place], [place] NAME: MONAE ECKERT [facility] REC#: [id number] PT STATUS: REG ER : 1970 PHYSICIAN: DANA OBRJAS MD ADMIT DATE: 07/29/22/ER Draft Date of Exam:07/29/22 CT NECK (SOFT TISSUE) W Procedure: CT neck soft tissue with contrast. Technique: Multiple contiguous axial images were obtained through the neck after the administration of contrast. Auto Exposure Controls were utilized during the CT exam to meet ALARA standards for radiation dose reduction. Date: July 29, 2022. Indication: 51-year-old male, right-sided neck pain. Infection. Comparison: None. Findings: The orbits are unremarkable in appearance. Unremarkable evaluation of the bilateral parotid glands. The submandibular glands are unremarkable in appearance. There is no identified thyroid nodule or mass. There is a very large aggressive appearing mass with peripheral enhancement and central low-attenuation in the right lower neck with an axial extent of 5.2 x 10.1 cm. This has a craniocaudal extent of 6.5 cm. This directly contacts the clavicle on coronal image 44. There is no identified cortical or aggressive bone destruction or periosteal reaction. This extends near but does not definitely communicate with the right sternoclavicular joint. There is no sternoclavicular joint space loss or findings to specifically suggest septic arthritis. This mass is directly contacting and exerting mass effect on the right internal jugular vein which is notably narrowed at this location. There is also contact and probable involvement of the right sternocleidomastoid muscle, perhaps best demonstrated on axial image 85 and adjacent sequential images. There are subcentimeter short axis cervical lymph nodes, bilaterally. There is no identified cervical lymph node which is specifically meeting CT size criteria for adenopathy. There is no identified additional neck mass or fluid collection. The above mass does exert some mass effect on the right lobe of the thyroid. Imaged portions of the lungs are clear. There is no identified aggressive bone lesion. There are disc degenerative changes at C5-C6. There is a periapical lucency associated with the most posteriorly located left mandibular molar. Impression: 1. Aggressive appearing mass in the right lower neck which directly or nearly directly contacts the right clavicle highly concerning for abscess or malignancy with measurements as above. This also involves the right sternocleidomastoid muscle. 2. No clear involvement of the clavicle. 3. No evidence of septic arthritis of the right sternoclavicular joint. 4. No identified cervical lymph node specifically meeting CT size criteria for adenopathy. Dictated on workstation # [id number] Dict: 07/29/221917 Trans: 07/29/221934 [facility] [id number] Interpreted by: JASMEET BRITTON MD Electronically signed by: Departure Impression Primary Impression: Cellulitis and abscess of neck Disposition: ADMITTED INPATIENT Condition: Stable Admissions Decision to Admit Reason: Admit from ER (General) Decision to Admit/Date: Jul 29, 2022 Departure-Patient Inst. Referrals: [facility] [place] ([place]P) Primary Care Physician DELORIS RAJAN (Family) Primary Care Physician DANA BORJAS MD Jul 29, 2022 18:39
[2022-07-29 18:44] LABS: BASOPHILS # (AUTO) 0.1 10^3/uL (0.0-0.1); BASOPHILS % (AUTO) 0 % (0-10); EOSINOPHILS # (AUTO) 0.3 10^3/uL (0.0-0.3); EOSINOPHILS % (AUTO) 1 % (0-10); HEMATOCRIT 36 % (40-54); HEMOGLOBIN 11.5 g/dL (13.3-17.7); LYMPHOCYTES # (AUTO) 1.3 10^3/uL (1.0-4.0); LYMPHOCYTES % (AUTO) 5 % (12-44); MEAN CORPUSCULAR HEMOGLOBIN 23 pg (25-34); MEAN CORPUSCULAR HGB CONC 32 g/dL (32-36); MEAN CORPUSCULAR VOLUME 73 fL (80-99); MONOCYTES # (AUTO) 1.4 10^3/uL (0.0-1.0); MONOCYTES % (AUTO) 6 % (0-12); NEUTROPHILS # (AUTO) 19.7 10^3/uL (1.8-7.8); NEUTROPHILS % (AUTO) 86 % (42-75); PLATELET COUNT 656 10^3/uL (130-400)
[2022-07-29] MEDS ORDERED: HOLD METFORMIN - RECEIVED CONTRAST 20 ML VIAL IV SCH (18:45)
[2022-07-29] MEDS ORDERED: NS 100 ML (IVPB) BAG IV ONE (18:45)
[2022-07-29] MEDS ORDERED: IOHEXOL 350 MG/ML 100 ML (OMNIPAQUE 350) VIAL IV ONE (18:45)
[2022-07-29 18:52] LABS: ALBUMIN 3.7 GM/DL (3.2-4.5); CHLORIDE 101 MMOL/L (98-107); POTASSIUM 3.3 MMOL/L (3.6-5.0); SODIUM 138 MMOL/L (135-145)
[2022-07-29 18:54] LABS: GLUCOSE 96 MG/DL (70-105)
[2022-07-29 18:55] LABS: CARBON DIOXIDE 22 MMOL/L (21-32); TOTAL PROTEIN 8.3 GM/DL (6.4-8.2)
[2022-07-29 18:56] LABS: BILIRUBIN,TOTAL 0.4 MG/DL (0.1-1.0)
[2022-07-29 18:58] LABS: ALKALINE PHOSPHATASE 128 U/L (40-136); CREATININE SERUM 0.78 MG/DL (0.60-1.30); GFR ESTIMATED 107
[2022-07-29 18:59] LABS: BUN/CREATININE RATIO 10
[2022-07-29 19:01] LABS: ALANINE AMINOTRANSFERASE 22 U/L (0-55); ANISOCYTOSIS SLIGHT; BAND NEUTROPHILS 1 %; EOSINOPHILS % (MANUAL) 2 %; HYPOCHROMASIA MODERATE; LYMPHOCYTES % (MANUAL) 5 %; MICROCYTOSIS SLIGHT; MONOCYTES % (MANUAL) 7 %; NEUTROPHILS % (MANUAL) 84 %; PROTHROMBIN TIME PATIENT 13.6 SEC (12.2-14.7); REACTIVE LYMPHOCYTES 1 %
[2022-07-29] MEDS ORDERED: LORazepam 0.5 MG (ATIVAN) TABLET ONE (19:01)
[2022-07-29 19:02] LABS: ERYTHROCYTE SEDIMENTATION RATE 71 MM/HR (0-30)
[2022-07-29] MEDS ORDERED: VANCOMYCIN INJECTION 500 MG in NS (IVPB) 100 ML IV ONE (19:30)
--- NOTE | 2022-07-29 19:37 | Diagnostic Imaging Report ---
Procedure: CT neck soft tissue with contrast. Technique: Multiple contiguous axial images were obtained through the neck after the administration of contrast. Auto Exposure Controls were utilized during the CT exam to meet ALARA standards for radiation dose reduction. Date: July 29, 2022. Indication: 51-year-old male, right-sided neck pain. Infection. Comparison: None. Findings: The orbits are unremarkable in appearance. Unremarkable evaluation of the bilateral parotid glands. The submandibular glands are unremarkable in appearance. There is no identified thyroid nodule or mass. There is a very large aggressive appearing mass with peripheral enhancement and central low-attenuation in the right lower neck with an axial extent of 5.2 x 10.1 cm. This has a craniocaudal extent of 6.5 cm. This directly contacts the clavicle on coronal image 44. There is no identified cortical or aggressive bone destruction or periosteal reaction. This extends near but does not definitely communicate with the right sternoclavicular joint. There is no sternoclavicular joint space loss or findings to specifically suggest septic arthritis. This mass is directly contacting and exerting mass effect on the right internal jugular vein which is notably narrowed at this location. There is also contact and probable involvement of the right sternocleidomastoid muscle, perhaps best demonstrated on axial image 85 and adjacent sequential images. There are subcentimeter short axis cervical lymph nodes, bilaterally. There is no identified cervical lymph node which is specifically meeting CT size criteria for adenopathy. There is no identified additional neck mass or fluid collection. The above mass does exert some mass effect on the right lobe of the thyroid. Imaged portions of the lungs are clear. There is no identified aggressive bone lesion. There are disc degenerative changes at C5-C6. There is a periapical lucency associated with the most posteriorly located left mandibular molar. Impression: 1. Aggressive appearing mass in the right lower neck which directly or nearly directly contacts the right clavicle highly concerning for abscess or malignancy with measurements as above. This also involves the right sternocleidomastoid muscle. 2. No clear involvement of the clavicle. 3. No evidence of septic arthritis of the right sternoclavicular joint. 4. No identified cervical lymph node specifically meeting CT size criteria for adenopathy. Dictated by: Dictated on workstation # [id number]
[2022-07-29] MEDS ORDERED: LIDOCAINE/EPI 2% 1:100,00 (XYLOCAINE) 20 ML VIAL INJ ONE (19:45)
[2022-07-29] MEDS ORDERED: LIDOCAINE 1% INJ 20 ML VIAL ONE (20:23)
[2022-07-29] MEDS ORDERED: cloNIDine 0.1 MG (CATAPRES) TAB ONE (22:10)
[2022-07-29] MEDS: cloNIDine 0.1 MG (CATAPRES) TAB PO PRN ×2 (22:11→23:22)
[2022-07-29 22:20] VITALS: BP 225/108
[2022-07-29] MEDS ORDERED: CATHETER FLUSH 10 ML SYR IVP PRN (22:30)
[2022-07-29] MEDS ORDERED: IBUPROFEN 600 MG (MOTRIN) TAB PO PRN (22:45)
[2022-07-29] MEDS ORDERED: ONDANSETRON 4 MG/2 ML (SDV) Z0FRAN IV PRN (22:45)
[2022-07-29 22:54] VITALS: BP 179/101
[2022-07-29] MEDS ORDERED: RT-ALBUTEROL/IPRATROPIUM 3 ML (DUONEB) VIAL INH PRN (23:00)
[2022-07-29 23:23] VITALS: BP 211/111
[2022-07-29 23:33] VITALS: BP 193/109
[2022-07-30] MEDS: DIVALPROX SPRINKLE 125 MG (DEPAKOTE) CAP PO SCH ×2 (00:11→20:39)
[2022-07-30 03:13] VITALS: BP 173/91
[2022-07-30] MEDS: CATHETER FLUSH 10 ML SYR IVP SCH ×3 (05:39→20:43)
[2022-07-30 06:16] LABS: BASOPHILS % (AUTO) 0 % (0-10); EOSINOPHILS % (AUTO) 0 % (0-10); HEMATOCRIT 33 % (40-54); HEMOGLOBIN 10.9 g/dL (13.3-17.7); LYMPHOCYTES # (AUTO) 1.4 10^3/uL (1.0-4.0); LYMPHOCYTES % (AUTO) 6 % (12-44); MEAN CORPUSCULAR HEMOGLOBIN 23 pg (25-34); MEAN CORPUSCULAR HGB CONC 33 g/dL (32-36); MEAN CORPUSCULAR VOLUME 72 fL (80-99); MEAN PLATELET VOLUME 8.2 fL (9.0-12.2); MONOCYTES # (AUTO) 1.2 10^3/uL (0.0-1.0); MONOCYTES % (AUTO) 6 % (0-12); NEUTROPHILS # (AUTO) 18.6 10^3/uL (1.8-7.8); NEUTROPHILS % (AUTO) 87 % (42-75); PLATELET COUNT 673 10^3/uL (130-400); WHITE BLOOD COUNT 21.5 10^3/uL (4.3-11.0)
[2022-07-30 06:42] LABS: ALBUMIN 3.4 GM/DL (3.2-4.5); BILIRUBIN,TOTAL 0.5 MG/DL (0.1-1.0); CALCIUM 9.6 MG/DL (8.5-10.1); CREATININE SERUM 0.84 MG/DL (0.60-1.30); POTASSIUM 3.8 MMOL/L (3.6-5.0); TOTAL PROTEIN 7.5 GM/DL (6.4-8.2)
[2022-07-30 08:10] VITALS: BP 150/80
--- NOTE | 2022-07-30 08:35 | Consultation - Surgery ---
ALAN BERNAL 07/30/22 0835: History of Present Illness History of Present Illness Patient Consulted On(brittany/time) 07/30/22 08:25 Date Seen by Provider: Jul 30, 2022 Time Seen by Provider: 08:25 History of Present Illness Consult requested for Right neck abscess and cellulitis. 51 YO male presented to the ED yesterday with complaints of right neck swelling, redness and pain radiating into right upper extremity after injecting IV methamphetamine and fentanyl into right neck and arm last week. States since the pain, swelling, and redness have increased. He was found to have CT evidence of an aggressive mass to the right lower neck, involving right sternocleidomastoid, concerning for abscess vs malignancy. An I&D procedure with subsequent packing was performed in the ED. Pt states his pain is under control until manipulation. States he is still able to swallow and open mouth. Lesion noted to right forearm, warm but nonpainful. He denies fever, N/V, difficulty urinating, chest pain and shortness of breath. He has PMH of mental health problems including bipolar disorder. He admits polysubstance abuse including tobacco, ETOH, and multiple illicit substances. Allergies and Home Medications Allergies Coded Allergies: Sulfa (Sulfonamide Antibiotics) (Verified Allergy, Unknown, Vomiting, 10/29/19) codeine (Verified Allergy, Unknown, Itching, 10/29/19) lurasidone (Unverified Allergy, Unknown, 09/19/21) pregabalin (Verified Allergy, Unknown, 08/17/18) Patient Home Medication List Home Medication List Reviewed: Yes Divalproex Sodium (Divalproex Sodium) 125 Mg Tablet., 375 MG PO HS, (Reported) Entered as Reported by: JUAN MANUEL JENKINS on 10/26/21 1025 Last Action: Reviewed Olanzapine (Zyprexa) 15 Mg Tablet, 15 MG PO DAILY, (Reported) Entered as Reported by: GREGORIO PEPE on 09/19/21 1338 Last Action: Reviewed Pantoprazole Sodium (Pantoprazole Sodium) 40 Mg Tablet.dr, 40 MG PO DAILY, (Reported) Entered as Reported by: JUAN MANUEL JENKINS on 10/26/21 1025 Last Action: Reviewed Sucralfate (Sucralfate) 1 Gm Tablet, 1 GM PO QID, (Reported) Entered as Reported by: JUAN MANUEL JENKINS on 10/26/21 1025 Last Action: Reviewed Past Tyoyjtz-Roipwo-Zoelqk Hx Patient Social History Drug of Choice: METH, "EVERYTHING EXCEPT OPIATES" + IV USE) DENIES USE NOW Smoking Status: Current Everyday Smoker Type Used: Cigarettes 2nd Hand Smoke Exposure: Yes Recent Hopitalizations: No Alcohol Use?: Yes Substance type: Amphetamines, Methamphetamine, Opiates/Opioids, Marijuana, Other Have you traveled recently?: No Immunizations Up To Date Date of Influenza Vaccine: Apr 21, 2021 Seasonal Allergies Seasonal Allergies: No Surgeries History of Surgeries: Yes (LEFT LOWER LEG FX/ORIF, endoscopy) Surgeries: Adenoidectomy, Orthopedic, Tonsillectomy Respiratory History of Respiratory Disorde: No Cardiovascular History of Cardiac Disorders: Yes Cardiac Disorders: Hypertension Neurological History of Neurological Disord: Yes (SEIZURES X 3--FELT TO BE FROM DRUG WITH DRAWL--DEPAKOTE, PER PT) Neurological Disorders: Seizure Disorder Genitourinary History of Genitourinary Disor: No Gastrointestinal History of Gastrointestinal Di: Yes Gastrointestinal Disorders: Diverticulosis, Esophagitis, Hiatal Hernia Musculoskeletal History of Musculoskeletal Dis: Yes (LEFT LOWER LEG FX/ORIF) Musculoskeletal Disorders: Fractures Endocrine History of Endocrine Disorders: No HEENT History of HEENT Disorders: No Cancer History of Cancer: No Psychosocial History of Psychiatric Problem: Yes Behavioral Health Disorders: Eating Disorder, Anxiety, Suicide Attempts, Bipolar, Personality Disorder Integumentary History of Skin or Integumenta: No Blood Transfusions History of Blood Disorders: No Adverse Reaction to a Blood Tr: No Family Medical History Significant Family History: No Pertinent Family Hx Review of Systems-General Constitutional: No chills; diaphoresis; No fever EENTM: other (right neck mass, swelling, redness and pain); No blurred vision, No mouth pain, No mouth swelling, No throat swelling Respiratory: No cough, No dyspnea on exertion Cardiovascular: No chest pain, No edema Gastrointestinal: No abdominal pain, No diarrhea, No nausea, No vomiting Genitourinary: No dysuria, No frequency Musculoskeletal: neck pain (right side of neck) Skin: No change in color; lesions (to right forearm); No pruritus Psychiatric/Neurological: Denies Numbness, Denies Tremors Physical Exam-General Problems Physical Exam Vital Signs Vital Signs - First Documented 07/29/22 07/29/22 07/29/22 17:00 22:20 22:54 Temp 36.6 Pulse 99 Resp 18 B/P (MAP) 179/101 (127) Pulse Ox 96 O2 Delivery Room Air FiO2 21 Capillary Refill : Less Than 3 Seconds General Appearance: no apparent distress (at rest, but mild distress with manipulation of right neck abscess ), thin, other (disheveled appearance) Eyes: Bilateral Eye PERRL, Bilateral Eye EOMI HEENT: PERRL/EOMI, TMs normal Neck: supple, other (right neck abscess with dressing and packing in place. Appreciated copious amount drainage from I&D side. Tenderness to palpation with surrounding erythema on neck and right clavicle area.) Respiratory: lungs clear, normal breath sounds, no respiratory distress, no accessory muscle use Cardiovascular: normal peripheral pulses, no JVD, no murmur Peripheral Pulses: 2+ Radial Pulses (R), 2+ Radial Pulses (L) Gastrointestinal: non tender, soft; No guarding, No rebound Rectal: deferred Back: no vertebral tenderness Extremities: no pedal edema, no calf tenderness Neurologic/Psychiatric: alert, normal mood/affect, oriented x 3 Skin: warm/dry, rash (Ulcerative lesion to right forearm, with some crusting. Non tender. No surrounding erythema. No fluctuance noted.) Data Review Labs Laboratory Tests 07/29/22 18:30: White Blood Count 23.0H, Red Blood Count 4.92, Hemoglobin 11.5L, Hematocrit 36L, Mean Corpuscular Volume 73L, Mean Corpuscular Hemoglobin 23L, Mean Corpuscular Hemoglobin Concent 32, Red Cell Distribution Width 20.8H, Platelet Count 656H, Mean Platelet Volume 8.0L, Immature Granulocyte % (Auto) 1, Neutrophils (%) (Auto) 86H, Lymphocytes (%) (Auto) 5L, Monocytes (%) (Auto) 6, Eosinophils (%) (Auto) 1, Basophils (%) (Auto) 0, Neutrophils # (Auto) 19.7H, Lymphocytes # (Auto) 1.3, Monocytes # (Auto) 1.4H, Eosinophils # (Auto) 0.3, Basophils # (Auto) 0.1, Immature Granulocyte # (Auto) 0.2H, Neutrophils % (Manual) 84, Lymphocytes % (Manual) 5, Monocytes % (Manual) 7, Eosinophils % (Manual) 2, Band Neutrophils 1, Reactive Lymphocytes 1, Hypochromasia MODERATE, Anisocytosis SLIGHT, Microcytosis SLIGHT, Erythrocyte Sedimentation Rate 71H, Prothrombin Time 13.6, INR Comment 1.0, Activated Partial Thromboplast Time 42H, Sodium Level 138, Potassium Level 3.3L, Chloride Level 101, Carbon Dioxide Level 22, Anion Gap 15H, Blood Urea Nitrogen 8, Creatinine 0.78, Estimat Glomerular Filtration Rate 107, BUN/Creatinine Ratio 10, Glucose Level 96, Lactic Acid Level 1.25, Calcium Level 10.0, Corrected Calcium 10.2H, Total Bilirubin 0.4, Aspartate Amino Transf (AST/SGOT) 17, Alanine Aminotransferase (ALT/SGPT) 22, Alkaline Phosphatase 128, C-Reactive Protein High Sensitivity 39.63H, Total Protein 8.3H, Albumin 3.7, Serum Alcohol < 10 07/30/22 05:40: White Blood Count 21.5H, Red Blood Count 4.65, Hemoglobin 10.9L, Hematocrit 33L, Mean Corpuscular Volume 72L, Mean Corpuscular Hemoglobin 23L, Mean Corpuscular Hemoglobin Concent 33, Red Cell Distribution Width 20.6H, Platelet Count 673H, Mean Platelet Volume 8.2L, Immature Granulocyte % (Auto) 1, Neutrophils (%) (Auto) 87H, Lymphocytes (%) (Auto) 6L, Monocytes (%) (Auto) 6, Eosinophils (%) (Auto) 0, Basophils (%) (Auto) 0, Neutrophils # (Auto) 18.6H, Lymphocytes # (Auto) 1.4, Monocytes # (Auto) 1.2H, Eosinophils # (Auto) 0.0, Basophils # (Auto) 0.0, Immature Granulocyte # (Auto) 0.2H, Sodium Level 134L, Potassium Level 3.8, Chloride Level 99, Carbon Dioxide Level 23, Anion Gap 12, Blood Urea Nitrogen 10, Creatinine 0.84, Estimat Glomerular Filtration Rate 105, BUN/Creatinine Ratio 12, Glucose Level 106H, Calcium Level 9.6, Corrected Calcium 10.1, Total Bilirubin 0.5, Aspartate Amino Transf (AST/SGOT) 15, Alanine Aminotransferase (ALT/SGPT) 18, Alkaline Phosphatase 109, Total Protein 7.5, Albumin 3.4 Radiology [facility], [place] NAME: MONAE ECKERT [facility] REC#: [id number] PT STATUS: REG ER : 1970 PHYSICIAN: DANA BORJAS MD ADMIT DATE: 07/29/22/ER Signed Date of Exam:07/29/22 CT NECK (SOFT TISSUE) W Procedure: CT neck soft tissue with contrast. Technique: Multiple contiguous axial images were obtained through the neck after the administration of contrast. Auto Exposure Controls were utilized during the CT exam to meet ALARA standards for radiation dose reduction. Date: July 29, 2022. Indication: 51-year-old male, right-sided neck pain. Infection. Comparison: None. Findings: The orbits are unremarkable in appearance. Unremarkable evaluation of the bilateral parotid glands. The submandibular glands are unremarkable in appearance. There is no identified thyroid nodule or mass. There is a very large aggressive appearing mass with peripheral enhancement and central low-attenuation in the right lower neck with an axial extent of 5.2 x 10.1 cm. This has a craniocaudal extent of 6.5 cm. This directly contacts the clavicle on coronal image 44. There is no identified cortical or aggressive bone destruction or periosteal reaction. This extends near but does not definitely communicate with the right sternoclavicular joint. There is no sternoclavicular joint space loss or findings to specifically suggest septic arthritis. This mass is directly contacting and exerting mass effect on the right internal jugular vein which is notably narrowed at this location. There is also contact and probable involvement of the right sternocleidomastoid muscle, perhaps best demonstrated on axial image 85 and adjacent sequential images. There are subcentimeter short axis cervical lymph nodes, bilaterally. There is no identified cervical lymph node which is specifically meeting CT size criteria for adenopathy. There is no identified additional neck mass or fluid collection. The above mass does exert some mass effect on the right lobe of the thyroid. Imaged portions of the lungs are clear. There is no identified aggressive bone lesion. There are disc degenerative changes at C5-C6. There is a periapical lucency associated with the most posteriorly located left mandibular molar. Impression: 1. Aggressive appearing mass in the right lower neck which directly or nearly directly contacts the right clavicle highly concerning for abscess or malignancy with measurements as above. This also involves the right sternocleidomastoid muscle. 2. No clear involvement of the clavicle. 3. No evidence of septic arthritis of the right sternoclavicular joint. 4. No identified cervical lymph node specifically meeting CT size criteria for adenopathy. Dictated by: Dictated on workstation # [id number] Dict: 07/29/221917 Trans: 07/29/222113 PJE [id number] Interpreted by: JASMEET BRITTON MD Electronically signed by: JASMEET BRITTON MD 07/29/222113 Assessment/Plan Assessment/Plan Assessment/Plan Right neck Abscess and cellulitis S/p I&D procedure Leukocytosis IV polysubstance abuse Bipolar disorder Seizure disorder CT evidence of an aggressive mass to the right lower neck, involving right sternocleidomastoid, concerning for abscess vs malignancy. Appreciated copious amount of purulent drainage from I&D site (initially perfor med in ED yesterday evening). Flush with saline and repack with iodoform. Conservative measures at this time, discussed may have to take to OR for more complete I&D if not improving. Liquid diet IV abx - vancomycin and zosyn Pain control TORO MATHIS DO 07/30/22 1239: History of Present Illness History of Present Illness History of Present Illness Patient is a 51 year old male who injected meth into right neck and arm last week. Began having redness, swelling and increasing pain since then. Nothing made better or worse. Moderate discomfort. Has scabbed ulcerated area to right forearm. This area is not that painful. Has no significant drainage from forearm. Went to ED last night and had ct demonstrating large abscess on right side of neck and had Incision and drainage performed in the emergency department. Allergies and Home Medications Allergies Coded Allergies: Sulfa (Sulfonamide Antibiotics) (Verified Allergy, Unknown, Vomiting, 10/29/19) codeine (Verified Allergy, Unknown, Itching, 10/29/19) lurasidone (Unverified Allergy, Unknown, 09/19/21) pregabalin (Verified Allergy, Unknown, 08/17/18) Patient Home Medication List Home Medication List Reviewed: Yes Divalproex Sodium (Divalproex Sodium) 125 Mg Tablet.dr, 375 MG PO HS, (Reported) Entered as Reported by: JUAN MANUEL JENKINS on 10/26/21 1025 Last Action: Reviewed Olanzapine (Zyprexa) 15 Mg Tablet, 15 MG PO DAILY, (Reported) Entered as Reported by: GREGORIO PEPE on 09/19/21 1338 Last Action: Reviewed Pantoprazole Sodium (Pantoprazole Sodium) 40 Mg Tablet.dr, 40 MG PO DAILY, (Reported) Entered as Reported by: JUAN MANUEL JENKINS on 10/26/21 1025 Last Action: Reviewed Sucralfate (Sucralfate) 1 Gm Tablet, 1 GM PO QID, (Reported) Entered as Reported by: JUAN MANUEL JENKINS on 10/26/21 1025 Last Action: Reviewed Past Ewferws-Jimodu-Bykrgw Hx Reviewed Nursing Assessment Reviewed/Agree w Nursing PMH: Yes Family Medical History Significant Family History: No Pertinent Family Hx Review of Systems-General Constitutional: No chills; diaphoresis; No fever EENTM: other (right neck mass, swelling, redness and pain); No blurred vision, No mouth pain, No mouth swelling, No throat swelling Respiratory: No cough, No dyspnea on exertion Cardiovascular: No chest pain, No edema Gastrointestinal: No abdominal pain, No diarrhea, No nausea, No vomiting Genitourinary: No dysuria, No frequency Musculoskeletal: neck pain (right side of neck) Skin: No change in color; lesions (to right forearm); No pruritus Psychiatric/Neurological: Denies Numbness, Denies Tremors All Other Systems Reviewed Negative Unless Noted: Yes (Negative excepted noted.) Physical Exam-General Problems Physical Exam General Appearance: no apparent distress (at rest, but mild distress with manipulation of right neck abscess ), thin HEENT: PERRL/EOMI, other (right neck swelling and erythema) Neck: supple, other (right neck abscess with dressing and packing in place. Appreciated copious amount drainage from I&D site. Tenderness to palpation with surrounding erythema on neck and right clavicle area.) Respiratory: chest non-tender, no respiratory distress, no accessory muscle use Cardiovascular: regular rate, rhythm, no JVD, tachycardia Gastrointestinal: non tender, soft; No guarding, No rebound Rectal: deferred Back: no CVA tenderness, no vertebral tenderness Extremities: non-tender, no pedal edema, other (right forearm wound/scab) Neurologic/Psychiatric: alert, normal mood/affect, oriented x 3 Skin: warm/dry, rash (Ulcerative lesion to right forearm, with some crusting. Non tender. No surrounding erythema. No fluctuance noted.) Lymphatic: no adenopathy Assessment/Plan Assessment/Plan Assessment/Plan Right neck Abscess and cellulitis S/p I&D procedure Leukocytosis IV polysubstance abuse Bipolar disorder Seizure disorder CT evidence of an aggressive mass to the right lower neck, involving right sternocleidomastoid, concerning for abscess vs malignancy. Appreciated copious amount of purulent drainage from I&D site (initially performed in ED yesterday evening). Flush with saline and repack with iodoform. Conservative measures at this time, discussed may have to take to OR for more complete I&D if not improving. Liquid diet IV abx - vancomycin and zosyn Pain control Supervisory-Addendum Brief Verification & Attestation Participated in pt care: history, MDM, physical Personally performed: exam, history, MDM, supervision of care Care discussed with: Medical Student Procedures: n/a Results interpretation: Verified all documentation Verification and Attestation of Medical Student E/M Service A medical student performed and documented this service in my presence. I reviewed and verified all information documented by the medical student and made modifications to such information, when appropriate. I personally performed the physical exam and medical decision making. Toro Mathis, Jul 30, 2022,12:40 ALAN BERNAL Jul 30, 2022 08:35 TORO MATHIS DO Jul 30, 2022 12:39
[2022-07-30] MEDS: NS IV 1000 ML 1,000 ML IV SCH ×2 (08:39→08:40)
[2022-07-30] MEDS: VANCOMYCIN 1250 MG/NS 250 ML IVPB IV SCH ×4 (08:41→20:42)
[2022-07-30] MEDS ORDERED: PIPERACILLIN SODIUM/TAZOBACTAM 4.5 GM in NS (IVPB) 100 ML IV ONE (10:30)
[2022-07-30 11:15] VITALS: BP 152/88
[2022-07-30] MEDS ORDERED: LORazepam INJ 2 MG/ML (ATIVAN) VIAL IV PRN (11:30)
[2022-07-30] MEDS ORDERED: ONDANSETRON 4 MG (ZOFRAN) ORAL DISSOLVE TAB SL PRN (11:30)
[2022-07-30] MEDS ORDERED: 1/2 NS IV SOLUTION 1,000 ML IV PRN (11:30)
[2022-07-30] MEDS ORDERED: ONDANSETRON 4 MG/2 ML (SDV) Z0FRAN IV PRN (11:30)
[2022-07-30] MEDS ORDERED: SENNA W/DOCUSATE (SENOKOT S) TABLET PO PRN (11:30)
[2022-07-30] MEDS ORDERED: LORazepam INJ 2 MG/ML (ATIVAN) VIAL IM/IV PRN (11:30)
[2022-07-30] MEDS ORDERED: LORazepam 1 MG (ATIVAN) TAB PO PRN (11:30)
[2022-07-30] MEDS ORDERED: ANTACID SUSP 30 ML UDC (MYLANTA) PO PRN (11:30)
[2022-07-30] MEDS ORDERED: D5 1/2 NS 1000 ML IV SOLUTION 1,000 ML IV PRN (11:30)
[2022-07-30] MEDS: ENOXAPARIN INJECTION 30 MG/0.3 ML SYR SC SCH (11:53)
[2022-07-30] MEDS ORDERED: THIAMINE INJECTION 100 MG, FOLIC ACID INJECTION 1 MG, MAGNESIUM SULFATE 2 GM, VITAMIN M... IV SCH ×5 (12:00)
--- NOTE | 2022-07-30 16:15 | History & Physical-Hospitalist ---
ALLAN ODELL 07/30/22 1615: History of Present Illness HPI/Chief Complaint Orestes Brooks is a 51 y/o male who presented to the ED 07/29/22 with pain, erythema, and swelling of the right neck. He is a polysubstance user and has been injecting methamphetamine and fentanyl into his right arm recently. He is not sure exactly when symptoms first appeared, but believes it may have started around the ' holiday. He reports the neck pain would radiate down his right arm, although this feature is apparently no longer present today. Leukocytosis was present on admission with WBC count of 23, & ESR was elevated at 71. Blood cultures were obtained, and broad-spectrum abx were initiated with IV vancomycin and IV Zosyn. CT of the neck was obtained upon admission 07/29 and showed a large mass 10.1cm in largest dimension that directly contacts the right clavicle, involves the right sternocleidomastoid, and is concerning for abscess vs malignancy. I&D of the abscess with subsequent packing was performed in the ED on 07/29, and there continues to be purulent-appearing drainage from the site upon examination 07/30. Pt states his pain is controlled at rest but increases with manipulation of the area. Mr. Brooks has a PMH significant for hiatal hernia s/o repair, esophagitis, polysubstance use disorder (methamphetamine, opioids, marijuana, alcohol, toba account specialist), and a history of seizures that he reports began around age 12-13 prior to any substance use. He also has bipolar disorder with a history of multiple suicide attempts, most recently in January 2022. Review of systems: Positive for R-sided neck pain & fatigue. Negative for fever, chills, headache, chest pain, shortness of breath, cough, difficulty swallowing, nausea, vomiting, abdominal pain, & numbness/tingling in extremities. Source: patient, RN/MD, RN notes reviewed Exam Limitations: no limitations Date Seen 07/30/22 Time Seen by a Provider: 09:45 Attending Physician [facility] PCP Admitting Physician: Mik Jones MD Attending Physician: Alexandra Hernández DO Referring Physician Date of Admission Jul 30, 2022 at 10:50 Home Medications & Allergies Home Medications Reviewed patient Home Medication Reconciliation performed by pharmacy medication reconciliations master fire control technician and/or nursing. Patients Allergies have been reviewed. Allergies Allergies Coded Allergies Sulfa (Sulfonamide Antibiotics) (Verified Allergy, Unknown, Vomiting, 10/29/19) codeine (Verified Allergy, Unknown, Itching, 10/29/19) lurasidone (Unverified Allergy, Unknown, 09/19/21) pregabalin (Verified Allergy, Unknown, 08/17/18) Past Wotymoe-Cofalm-Bqovum Hx Patient Social History Tobacco Use?: Yes Tobacco type used: Cigarettes Smoking Status: Current Everyday Smoker Smokeless Tobacco Frequency: Unknown if Ever Used Use of E-Cig and/or Vaping dev: Unable to obtain E-Cig or Vaping type used: Marijuana, Other Use of E-Cig and/or Vaping Mohamud: Current Everyday User Substance use?: Yes Substance type: Amphetamines, Methamphetamine, Opiates/Opioids, Marijuana, Other Substance frequency: Daily Alcohol Use?: Yes Alcohol type: Hard Liquor Alcohol Frequency: Daily Pt feels they are or have been: No Immunizations Up To Date Date of Influenza Vaccine: Apr 21, 2021 First/Initial COVID19 Vaccinat: 12/20/20 Second COVID19 Vaccination [place]: 06/11 Seasonal Allergies Seasonal Allergies: No Current Status Advance Directives: No Communicates: Verbally Primary Language: Brazilian Preferred Spoken Language: Brazilian Is interpretation needed?: No Implanted or Applied Medical D: None Past Medical History Surgeries: Adenoidectomy, Orthopedic (ORIF of left leg), Tonsillectomy Currently Using CPAP: No Currently Using BIPAP: No Hypertension Seizure Disorder Diverticulosis, Esophagitis, Hiatal Hernia Fractures Eating Disorder, Anxiety, Suicide Attempts, Bipolar, Personality Disorder Blood Disorders: No Adverse Reaction/Blood Tranf: No Family Medical History No Pertinent Family Hx Review of Systems Constitutional: see HPI EENTM: see HPI Respiratory: see HPI Cardiovascular: see HPI Gastrointestinal: see HPI Genitourinary: see HPI Musculoskeletal: see HPI Skin: see HPI Psychiatric/Neurological: See HPI All Other Systems Reviewed Negative Unless Noted: Yes Physical Exam Physical Exam Vital Signs Vital Signs - First Documented 07/29/22 07/29/22 07/29/22 17:00 22:20 22:54 Temp 36.6 Pulse 99 Resp 18 B/P (MAP) 179/101 (127) Pulse Ox 96 O2 Delivery Room Air FiO2 21 Capillary Refill : Less Than 3 Seconds Height, Weight, BMI Height: 6'2.00" Weight: 137lbs. oz. 62.371001dc; 17.98 BMI Method:Stated General Appearance: Other (Resting comfortably in bed upon entering his room. Eyes mostly closed even when speaking.) Neck: Limited Range of Motion (mildly decreased ROM due to pain), Tender Lateral Respiratory: No Accessory Muscle Use, No Respiratory Distress Cardiovascular: No Gallop, No Murmur, Other (Mild tachycardia ~100 w/ regular rhythm) Gastrointestinal: Normal Bowel Sounds Neurologic/Psychiatric: Other (dozes off during conversation, but able to answer questions appropriately) Skin: Normal Color, Warm/Dry, Erythema (Right neck, with evidence of purulent drainage on dressing) Results Results/Procedures Labs Laboratory Tests 07/29/22 18:30 07/30/22 05:40 Patient resulted labs reviewed. Imaging: Reviewed Imaging Films, Reviewed Imaging Report Assessment/Plan Admission Diagnosis Cellulitis & abscess of the right neck Admission Status: Inpatient Order (span 2 midnights) Reason for Inpatient Admission: Pt requires IV antibiotics Assessment and Plan Assessment & Plan: (1) Cellulitis and abscess of right neck (2) Leukocytosis 07/29: CT neck upon admission demonstrated a large mass 10.1cm in largest dimension that directly contacts the right clavicle, involves the right sternocleidomastoid, and is concerning for abscess vs malignancy. WBC count 23 & ESR elevated at 71. I&D with subsequent packing was performed in the ED. Started on IV vancomycin & IV Zosyn. 07/30: WBC count slightly decreased down to 21.5. Purulent-appearing drainage from the site upon examination. Plan to continue IV vancomycin & IV Zosyn. PRN acetaminophen & ibuprofen for pain. Surgery team is following pt, and has noted pt may require more extensive I&D in the OR depending on clinical course. (3) Polysubstance use Including methamphetamine, fentanyl/opioids, marijuana, alcohol, tobacco. PMH of bipolar disorder and multiple suicide attempts. 07/30: Overnight episode of BP 225/108 with HR 101. 0.1mg clonidine PO given, along with 1g Keppra IV and DEBURRING TECHNICIAN dose of PO Depakote (375mg). Thiamine and folate supplementation + CIWA protocol initiated 07/30. Continue to monitor for symptoms of withdrawal. (4) Hx seizure disorder Unclear whether related to substance use/withdrawal. Pt reports 1st seizure at age ~12-13 at which time Depakote was begun-- states substance use did not begin until age 21. Continuing DEBURRING TECHNICIAN Depakote 375mg PO qHS. (5) DVT prophylaxis SC Lovenox 30mg qday. ALEXANDRA HERNÁNDEZ DO 07/30/222: Assessment/Plan Admission Diagnosis Assessment: Sepsis Cellulitis of the neck with abscess needs debridement Meth use Alcohol withdrawal Plan: IV antibiotics I&D Supportive care Admission Status: Inpatient Order (span 2 midnights) Reason for Inpatient Admission: sepsis Supervisory-Addendum Brief Verification & Attestation Participated in pt care: history, MDM, physical Personally performed: exam, history, MDM, supervision of care Care discussed with: Medical Student Procedures: n/a Results interpretation: Verified all documentation Verification and Attestation of Medical Student E/M Service A medical student performed and documented this service in my presence. I reviewed and verified all information documented by the medical student and made modifications to such information, when appropriate. I personally performed the physical exam and medical decision making. Alexandra Hernández, Jul 30, 2022,21:51 ALLAN ODELL Jul 30, 2022 16:15 ALEXANDRA HERNÁNDEZ DO Jul 30, 2022 21:52
[2022-07-30 16:19] VITALS: BP 150/84
[2022-07-30] MEDS: PIPERACILLIN SODIUM/TAZOBACTAM 4.5 GM in NS (IVPB) 100 ML IV SCH (16:34)
[2022-07-30 20:11] VITALS: BP 175/93
[2022-07-30] MEDS: MAGNESIUM OXIDE (MAG-OX)400 MG TAB PO SCH (20:39)
[2022-07-30 23:55] VITALS: BP 181/99
[2022-07-31] VITALS (12 sets, daily range): BP systolic 93–184; BP diastolic 56–105
[2022-07-31] MEDS: PIPERACILLIN SODIUM/TAZOBACTAM 4.5 GM in NS (IVPB) 100 ML IV SCH ×4 (00:47→23:29)
[2022-07-31] MEDS: CATHETER FLUSH 10 ML SYR IVP SCH ×3 (06:12→22:05)
[2022-07-31] MEDS: MULTIVIT W/MINERALS TAB (THERAGRAN M) PO SCH (06:12)
[2022-07-31] MEDS: THIAMINE 100 MG (VITAMIN B-1) TAB PO SCH (06:12)
[2022-07-31] MEDS ORDERED: TROUGH ORDER-PHARMACY XX NR (07:00)
[2022-07-31 07:04] LABS: BASOPHILS % (AUTO) 0 % (0-10); EOSINOPHILS # (AUTO) 0.1 10^3/uL (0.0-0.3); EOSINOPHILS % (AUTO) 1 % (0-10); HEMATOCRIT 30 % (40-54); LYMPHOCYTES # (AUTO) 1.9 10^3/uL (1.0-4.0); LYMPHOCYTES % (AUTO) 16 % (12-44); MEAN CORPUSCULAR HEMOGLOBIN 23 pg (25-34); MEAN CORPUSCULAR HGB CONC 33 g/dL (32-36); MEAN CORPUSCULAR VOLUME 71 fL (80-99); MEAN PLATELET VOLUME 7.8 fL (9.0-12.2); MONOCYTES # (AUTO) 0.8 10^3/uL (0.0-1.0); MONOCYTES % (AUTO) 7 % (0-12); NEUTROPHILS # (AUTO) 9.5 10^3/uL (1.8-7.8); NEUTROPHILS % (AUTO) 76 % (42-75); PLATELET COUNT 543 10^3/uL (130-400); WHITE BLOOD COUNT 12.5 10^3/uL (4.3-11.0)
[2022-07-31 07:30] LABS: ALBUMIN 3.1 GM/DL (3.2-4.5); BILIRUBIN,TOTAL 0.5 MG/DL (0.1-1.0); CALCIUM 9.1 MG/DL (8.5-10.1); CREATININE SERUM 0.74 MG/DL (0.60-1.30); POTASSIUM 3.4 MMOL/L (3.6-5.0)
[2022-07-31 07:31] LABS: VANCOMYCIN,TROUGH 11.5 UG/ML (10.0-20.0)
[2022-07-31] MEDS: VANCOMYCIN 1250 MG/NS 250 ML IVPB IV SCH ×4 (08:19→20:54)
[2022-07-31] MEDS: FOLIC ACID 1 MG TAB PO SCH (08:20)
[2022-07-31] MEDS: MAGNESIUM OXIDE (MAG-OX)400 MG TAB PO SCH ×2 (08:20→20:25)
--- NOTE | 2022-07-31 08:41 | Progress Note - Surgery ---
ALAN BERNAL 07/31/22 0841: Subjective Date Seen by a Provider: Jul 31, 2022 Time Seen by a Provider: 07:50 Subjective/Events-last exam Pt resting in NAD. States his pain has improved some. He was noted to have significant drainage from I&D site yesterday, although night nurses reports the drainage slowed overnight. He denies fever, chills, N/V, abdominal pain, chest pain and shortness of breath. Review of Systems General: No Chills, No Night Sweats HEENT: No Head Aches, No Visual Changes; Other Pulmonary: No Dyspnea, No Cough Cardiovascular: No: Chest Pain Gastrointestinal: No: Nausea, Vomiting, Abdominal Pain Genitourinary: No Dysuria, No Frequency, No Retention Musculoskeletal: neck pain (right side of neck); No: leg pain Neurological: No: Weakness, Numbness Focused Exam Lactate Level 07/29/22 18:30: Lactic Acid Level 1.25 Objective Exam Vital Signs Date Time Temp Pulse Resp B/P (MAP) Pulse Ox O2 Delivery O2 Flow Rate FiO2 07/31/22 07:46 36.3 98 20 172/105 (127) 98 Room Air 07/31/22 07:16 99 07/31/22 04:00 36.6 91 18 165/98 (120) 97 Room Air 07/31/22 01:00 92 07/30/22 23:55 37.0 93 18 181/99 (126) 95 Room Air 07/30/22 20:40 Room Air 07/30/22 20:11 37.2 93 18 175/93 (120) 99 Room Air 07/30/22 19:00 97 07/30/22 16:19 37.3 97 18 150/84 (106) 97 Room Air 07/30/22 12:59 104 07/30/22 11:15 37.4 112 20 152/88 (109) 95 Room Air I & O 07/31/22 07:00 Intake Total 1660 ml Output Total 1100 ml Balance 560 ml Capillary Refill : Less Than 3 Seconds General Appearance: No Apparent Distress, Chronically ill, Thin, Other (Resting comfortably in bed upon entering his room. Eyes mostly closed even when speaking.) HEENT: PERRL/EOMI, Moist Mucous Membranes Neck: Supple, Limited Range of Motion (mildly decreased ROM due to pain), Tender Lateral, Other (Cellulitis and I&D site to right side of neck. Dressing intact with visible purulent drainage. Surrounding erythema and warmth. Mildly tender to palpation with fluctuance ) Respiratory: Chest Non Tender, Lungs Clear, Normal Breath Sounds, No Accessory Muscle Use, No Respiratory Distress Cardiovascular: Regular Rate, Rhythm, No Gallop, No Murmur, Normal Peripheral Pulses Peripheral Pulses: 2+ Radial Pulses (R), 2+ Radial Pulses (L) Gastrointestinal: non tender, soft; No guarding, No rebound Extremity: Normal Capillary Refill, Non Tender, No Calf Tenderness, No Pedal Edema, Other (Wound to right forearm with scab and slight sloughing. Dressing in place. ) Neurologic/Psychiatric: Other (dozes off during conversation, but able to answer questions appropriately) Skin: Normal Color, Warm/Dry, Erythema (Right neck, with evidence of purulent drainage on dressing) Lymphatic: No Adenopathy Results Lab Laboratory Tests 07/30/22 13:03: Glucometer 107 07/30/22 17:53: Glucometer 102 07/30/22 23:49: Glucometer 105 07/31/22 06:57: White Blood Count 12.5H, Red Blood Count 4.31, Hemoglobin 10.0L, Hematocrit 30L, Mean Corpuscular Volume 71L, Mean Corpuscular Hemoglobin 23L, Mean Corpuscular Hemoglobin Concent 33, Red Cell Distribution Width 19.9H, Platelet Count 543H, Mean Platelet Volume 7.8L, Immature Granulocyte % (Auto) 1, Neutrophils (%) (Auto) 76H, Lymphocytes (%) (Auto) 16, Monocytes (%) (Auto) 7, Eosinophils (%) (Auto) 1, Basophils (%) (Auto) 0, Neutrophils # (Auto) 9.5H, Lymphocytes # (Auto) 1.9, Monocytes # (Auto) 0.8, Eosinophils # (Auto) 0.1, Basophils # (Auto) 0.0, Immature Granulocyte # (Auto) 0.1, Sodium Level 132L, Potassium Level 3.4L, Chloride Level 99, Carbon Dioxide Level 24, Anion Gap 9, Blood Urea Nitrogen 12, Creatinine 0.74, Estimat Glomerular Filtration Rate 109, BUN/Creatinine Ratio 16, Glucose Level 89, Calcium Level 9.1, Corrected Calcium 9.8, Total Bilirubin 0.5, Aspartate Amino Transf (AST/SGOT) 9, Alanine Aminotransferase (ALT/SGPT) 13, Alkaline Phosphatase 93, Total Protein 7.0, Albumin 3.1L, Vancomycin Level Trough 11.5 Microbiology 07/29/22 Gram Stain - Final, Resulted 07/29/22 Wound Culture - Preliminary, Resulted Culture In Progress 07/29/22 Blood Culture - Preliminary, Resulted No growth Assessment/Plan Assessment/Plan Assessment/Plan Right neck Abscess and cellulitis S/p I&D procedure Leukocytosis IV polysubstance abuse Bipolar disorder Seizure disorder CT evidence of an aggressive mass to the right lower neck, involving right sternocleidomastoid, concerning for abscess vs malignancy. I&D site to right neck still draining, but fluctuant. Plan to take to OR today for further I&D. Discussed risks and benefits of surgical I&D, pt understands and is agreeable with plan. NPO Continue IV abx - vancomycin and zosyn Pain control TORO HAMILTON DO 07/31/22 1213: Subjective Subjective/Events-last exam Pain better. Still with purulent drainage from neck. Has slowed down a little. No new complaints. WBC decreasing. Denies n/v fever sweats chills shortness of breath or chest pain. Objective Exam General Appearance: No Apparent Distress, Chronically ill, Thin HEENT: PERRL/EOMI, Normal ENT Inspection Neck: Limited Range of Motion (mildly decreased ROM due to pain), Tender Lateral, Other (Cellulitis and I&D site to right side of neck. Dressing intact with visible purulent drainage. Surrounding erythema and warmth. Mildly tender to palpation with fluctuance ) Respiratory: Chest Non Tender, No Accessory Muscle Use, No Respiratory Distress Cardiovascular: Regular Rate, Rhythm, No JVD Gastrointestinal: non tender, soft Extremity: Normal Capillary Refill, Non Tender, No Calf Tenderness, Other (Wound to right forearm with scab and slight sloughing. Dressing in place. ) Neurologic/Psychiatric: Alert, Oriented x3, Other (dozes off during conversation, but able to answer questions appropriately) Skin: Erythema (Right neck, with evidence of purulent drainage on dressing) Lymphatic: No Adenopathy Assessment/Plan Assessment/Plan Assessment/Plan Right neck Abscess and cellulitis S/p I&D procedure Leukocytosis IV polysubstance abuse Bipolar disorder Seizure disorder I&D site to right neck still draining, and fluctuant. Plan to take to OR today for further I&D. Discussed risks and benefits of surgical I&D, pt understands and is agreeable with plan. Will get consent NPO Continue IV abx - vancomycin and zosyn Pain control Supervisory-Addendum Brief Verification & Attestation Participated in pt care: history, MDM, physical Personally performed: exam, history, MDM, supervision of care Care discussed with: Medical Student Procedures: n/a Results interpretation: Verified all documentation Verification and Attestation of Medical Student E/M Service A medical student performed and documented this service in my presence. I reviewed and verified all information documented by the medical student and made modifications to such information, when appropriate. I personally performed the physical exam and medical decision making. Toro Hamilton, Jul 31, 2022,12:13 ALAN BERNAL Jul 31, 2022 08:41 TORO HAMILTON DO Jul 31, 2022 12:13
[2022-07-31] MEDS ORDERED: LACTATED RINGERS 1,000 ML IV PRN (09:15)
--- NOTE | 2022-07-31 10:35 | Progress Note - Hospitalist ---
ALLAN ODELL 07/31/22 1035: Subjective HPI/CC On Admission Date Seen by Provider: Jul 31, 2022 Time Seen by Provider: 10:00 Subjective/Events-last exam Scored 9 on CIWA overnight which prompted administration of 1mg lorazepam for alcohol withdrawal symptoms. CIWA score 3 this morning. Pain is well-controlled and he tolerated clear liquid diet without n/v. Denies nausea & anxiety this morning. Purulent-appearing drainage on bandage covering neck abscess. Continues to appear tired and dozes off in between questions. Review of systems: Positive for R-sided neck pain & fatigue. Negative for fever, chills, headache, chest pain, shortness of breath, cough, difficulty swallowing, nausea, vomiting, abdominal pain, & numbness/tingling in extremities. Focused Exam Lactate Level 07/29/22 18:30: Lactic Acid Level 1.25 Objective Exam Vital Signs Vital Signs Date Time Temp Pulse Resp B/P (MAP) Pulse Ox O2 Delivery O2 Flow Rate FiO2 07/31/22 11:30 36.6 82 18 184/97 (126) 97 Room Air 07/29/22 22:54 21 Capillary Refill : Less Than 3 Seconds General Appearance: No Apparent Distress, Other (tired-appearing) Neck: Limited Range of Motion (mildly decreased ROM due to pain), Tender Lateral Respiratory: No Accessory Muscle Use, No Respiratory Distress Cardiovascular: No Gallop, No Murmur, Tachycardia Neurologic/Psychiatric: Other (dozes off during conversation, but able to answer questions appropriately) Skin: Normal Color, Warm/Dry, Erythema (Right neck, with evidence of purulent drainage on dressing), Other (Wound on right forearm, covered by bandage) Results/Procedures Lab Laboratory Tests 07/31/22 06:57 Patient resulted labs reviewed. Assessment/Plan Assessment and Plan Assess & Plan/Chief Complaint Assessment & Plan: (1) Cellulitis and abscess of right neck (2) Leukocytosis 07/29: CT neck upon admission demonstrated a large mass 10.1cm in largest dimension that directly contacts the right clavicle, involves the right sternocleidomastoid, and is concerning for abscess vs malignancy. WBC count 23 & ESR elevated at 71. I&D with subsequent packing was performed in the ED. Started on IV vancomycin & IV Zosyn. 07/30: WBC count slightly decreased down to 21.5. Purulent-appearing drainage from the site upon examination. Plan to continue IV vancomycin & IV Zosyn. PRN acetaminophen & ibuprofen for pain. Surgery team is following pt, and has noted pt may require more extensive I&D in the OR depending on clinical course. 07/31: Surgery plans to take him to OR today for I&D of abscess. WBC count down to 12.5. Continue IV vancomycin & IV Zosyn. NGTD on blood cultures. Wound culture with mixed bacterial xander & WBCs. (3) Polysubstance use Including methamphetamine, fentanyl/opioids, marijuana, alcohol, tobacco. PMH of bipolar disorder and multiple suicide attempts. 07/30: Overnight episode of BP 225/108 with HR 101. 0.1mg clonidine PO given, along with 1g Keppra IV and CLOUD ADMINISTRATOR dose of PO Depakote (375mg). Thiamine and folate supplementation + CIWA protocol initiated 07/30. Continue to monitor for symptoms of withdrawal. 07/31: Scored 9 on CIWA overnight which prompted administration of 1mg lorazepam. Continues to be tachycardic (range yesterday 91-114) & hypertensive (range yesterday 150-181 / 80-99). Urine drug screen positive for amphetamines, methamphetamines, & benzos (although was given lorazepam overnight as stated). (4) Hx seizure disorder Unclear whether related to substance use/withdrawal. Pt reports 1st seizure at age ~12-13 at which time Depakote was begun-- states substance use did not begin until age 21. Continuing CLOUD ADMINISTRATOR Depakote 375mg PO qHS. (5) DVT prophylaxis SC Lovenox 30mg qday. NAVID HERNÁNDEZ DO 08/01/22 0524: Subjective Subjective/Events-last exam Pt is doing a lot better Will go to surgery for abscess drainage Checked meds and labs IV antibiotics tolerated Supervisory-Addendum Brief Verification & Attestation Participated in pt care: history, MDM, physical Personally performed: exam, history, MDM, supervision of care Care discussed with: Medical Student Procedures: n/a Results interpretation: Verified all documentation Verification and Attestation of Medical Student E/M Service A medical student performed and documented this service in my presence. I reviewed and verified all information documented by the medical student and made modifications to such information, when appropriate. I personally performed the physical exam and medical decision making. Andrez Herbert 11, 2023,05:24 ALLAN ODELL Jul 31, 2022 10:35 NAVID HERNÁNDEZ DO Aug 01, 2022 05:24
[2022-07-31 11:54] LABS: AMPHETAMINE SCREEN, URINE POSITIVE (NEGATIVE); BARBITURATE SCREEN URINE NEGATIVE (NEGATIVE); BENZODIAZEPINES SCREEN URINE POSITIVE (NEGATIVE); CANNABINOID SCREEN, URINE NEGATIVE (NEGATIVE); COCAINE SCREEN URINE NEGATIVE (NEGATIVE); METHADONE STAT NEGATIVE (NEGATIVE); OPIATE SCREEN URINE NEGATIVE (NEGATIVE); OXYCODONE STAT NEGATIVE (NEGATIVE); PROPOXYPHENE STAT NEGATIVE (NEGATIVE); TRICYCLIC ANTIDEPRESSANTS SCRE NEGATIVE (NEGATIVE)
[2022-07-31] MEDS ORDERED: FLU QUADRIvalent (6 months+) 60 mcg/0.5 ml 2022-23 (Fluzone) IM ONE (12:00)
[2022-07-31] MEDS: ENOXAPARIN INJECTION 30 MG/0.3 ML SYR SC SCH (12:42)
[2022-07-31] MEDS ORDERED: proPOfol 200 MG/20 ML (DIPRIVAN) VIAL IV ONE (14:49)
[2022-07-31] MEDS ORDERED: ONDANSETRON 4 MG/2 ML (SDV) Z0FRAN ONE (14:49)
[2022-07-31] MEDS ORDERED: SUCCINYLCHOLINE INJ 20 MG/1 ML 10 ML VIAL ONE (14:49)
[2022-07-31] MEDS ORDERED: LIDOCAINE PF 2% 5 ML (XYLOCAINE) VIAL ONE (14:49)
[2022-07-31] MEDS ORDERED: fentaNYL INJ 100 MCG/2 ML AMP ONE (14:49)
[2022-07-31] MEDS ORDERED: MIDAZOLAM 2 MG/2 ML (VERSED) VIAL ONE (14:49)
[2022-07-31] MEDS ORDERED: SEVOFLURANE (ULTANE) 15 ML INHAL SOLN ONE (16:05)
--- NOTE | 2022-07-31 16:43 | Anesthesia-General Post-Op ---
General Patient Condition Mental Status/LOC: Same as Preop Cardiovascular: Satisfactory Nausea/Vomiting: Absent Respiratory: Satisfactory Pain: Controlled Complications: Absent Post Op Complications Complications None Follow Up Care/Instructions Patient Instructions None needed. Anesthesia/Patient Condition Patient Condition Patient is doing well, no complaints, stable vital signs, no apparent adverse anesthesia problems. No complications reported per nursing. URVASHI PULIDO CRNA Jul 31, 2022 16:43
[2022-07-31] MEDS ORDERED: fentaNYL INJ 100 MCG/2 ML AMP IVP ONE (16:45)
[2022-07-31] MEDS ORDERED: ONDANSETRON 4 MG/2 ML (SDV) Z0FRAN IVP PRN (16:45)
[2022-07-31] MEDS: DIVALPROX SPRINKLE 125 MG (DEPAKOTE) CAP PO SCH (20:25)
[2022-07-31] MEDS: ACETAMINOPHEN 500 MG TAB (TYLENOL) PO PRN (20:26)
[2022-07-31] MEDS: HYPOCHLOROUS ACID/NaCl (VASHE) 250 ML IR SCH (20:28)
[2022-08-01 03:29] VITALS: BP 143/78
--- NOTE | 2022-08-01 05:19 | OPERATIVE REPORT ---
DATE OF SERVICE: 07/31/2022 PREOPERATIVE DIAGNOSIS: Right neck abscess. POSTOPERATIVE DIAGNOSIS: Right neck abscess. PROCEDURE: Incision and drainage of right neck abscess. SURGEON: Toro Hamilton DO ANESTHESIA: General. ESTIMATED BLOOD LOSS: Minimal. COMPLICATIONS: None. INDICATIONS: The patient is a 51-year-old male with abscess to the right neck. Incision and drainage was performed by the Emergency Department. This area is not providing adequate drainage. The patient and I discussed risks and benefits of the procedure and wished to proceed. Consent was signed and in the chart. DESCRIPTION OF PROCEDURE: The patient was taken back to the operating suite where he was prepped and draped in sterile fashion. Timeout was performed. Over the area of fluctuance and a previous small incision, a 15 blade scalpel was used to make an incision extending over the area of fluctuance medial lateral. Purulent material was erupting. A pocket was then entered and the sternocleidomastoid muscle was partially divided with cautery, this is probably approximately 3-4 mm in length. This was in order to have adequate drainage into the pocket of the abscess. The abscess cavity was then irrigated with copious amounts of irrigation. The area was then packed with iodoform. The neck was then washed and dried and sterile bandage was applied. The overall skin incision was approximately 3.2 cm in length. The patient was taken to the recovery room in stable condition. He tolerated the procedure well. Job ID: [id number] DocumentID: [id number] Dictated Date: 07/31/2022 22:30:28 Oil Heater Installer Date: 08/01/2022 05:18:00 Dictated By: TORO HAMILTON DO
[2022-08-01 05:46] LABS: BASOPHILS % (AUTO) 0 % (0-10); EOSINOPHILS # (AUTO) 0.2 10^3/uL (0.0-0.3); EOSINOPHILS % (AUTO) 3 % (0-10); HEMATOCRIT 30 % (40-54); HEMOGLOBIN 9.6 g/dL (13.3-17.7); LYMPHOCYTES # (AUTO) 1.5 10^3/uL (1.0-4.0); LYMPHOCYTES % (AUTO) 22 % (12-44); MEAN CORPUSCULAR HEMOGLOBIN 23 pg (25-34); MEAN CORPUSCULAR HGB CONC 32 g/dL (32-36); MEAN CORPUSCULAR VOLUME 72 fL (80-99); MONOCYTES # (AUTO) 0.5 10^3/uL (0.0-1.0); MONOCYTES % (AUTO) 7 % (0-12); NEUTROPHILS # (AUTO) 4.6 10^3/uL (1.8-7.8); NEUTROPHILS % (AUTO) 66 % (42-75); PLATELET COUNT 468 10^3/uL (130-400); WHITE BLOOD COUNT 6.9 10^3/uL (4.3-11.0)
[2022-08-01 06:19] LABS: ALBUMIN 2.9 GM/DL (3.2-4.5); BILIRUBIN,TOTAL 0.3 MG/DL (0.1-1.0); CALCIUM 8.8 MG/DL (8.5-10.1); CREATININE SERUM 0.8 MG/DL (0.60-1.30); POTASSIUM 3.8 MMOL/L (3.6-5.0); TOTAL PROTEIN 6.6 GM/DL (6.4-8.2)
[2022-08-01] MEDS: THIAMINE 100 MG (VITAMIN B-1) TAB PO SCH (06:50)
[2022-08-01] MEDS: MULTIVIT W/MINERALS TAB (THERAGRAN M) PO SCH (06:50)
[2022-08-01] MEDS: CATHETER FLUSH 10 ML SYR IVP SCH ×2 (06:51→14:11)
[2022-08-01 07:31] VITALS: BP 164/93
[2022-08-01] MEDS: PIPERACILLIN SODIUM/TAZOBACTAM 4.5 GM in NS (IVPB) 100 ML IV SCH (08:53)
[2022-08-01] MEDS: FOLIC ACID 1 MG TAB PO SCH (08:53)
[2022-08-01] MEDS: MAGNESIUM OXIDE (MAG-OX)400 MG TAB PO SCH (08:53)
[2022-08-01] MEDS: HYPOCHLOROUS ACID/NaCl (VASHE) 250 ML IR SCH (08:54)
[2022-08-01] MEDS: VANCOMYCIN 1250 MG/NS 250 ML IVPB IV SCH ×2 (08:56)
--- NOTE | 2022-08-01 08:57 | Progress Note - Surgery ---
ALAN BERNAL 08/01/22 0857: Subjective Date Seen by a Provider: Aug 01, 2022 Time Seen by a Provider: 08:55 Subjective/Events-last exam Pt resting comfortably. States his pain is better following the surgical I&D procedure yesterday. Redness and swelling have improved. Notes he is able to eat and swallow, although he has more trouble with hard foods. He denies n/v, fever, chills, sweats, abdominal pain, chest pain and shortness of breath. Review of Systems General: No Chills, No Night Sweats HEENT: No Head Aches, No Visual Changes, No Dysphasia; Other (right neck cellulitis improving) Pulmonary: No Dyspnea, No Cough Cardiovascular: No: Chest Pain Gastrointestinal: No: Nausea, Vomiting, Abdominal Pain, Diarrhea, Constipation Genitourinary: No Dysuria, No Frequency Musculoskeletal: No: leg pain Neurological: No: Weakness, Numbness Focused Exam Lactate Level 07/29/22 18:30: Lactic Acid Level 1.25 Objective Exam Vital Signs Date Time Temp Pulse Resp B/P (MAP) Pulse Ox O2 Delivery O2 Flow Rate FiO2 08/01/22 08:16 Room Air 08/01/22 07:31 36.1 89 20 164/93 (116) 96 08/01/22 07:17 88 08/01/22 03:29 36.5 79 16 143/78 (99) 97 Room Air 08/01/22 01:00 83 07/31/22 23:49 36.4 82 18 147/85 (105) 97 Room Air 07/31/22 21:00 Room Air 07/31/22 20:56 36.8 07/31/22 20:26 36.8 07/31/22 19:35 36.8 92 20 167/96 (119) 96 Room Air 07/31/22 19:25 96 Room Air 07/31/22 19:00 88 07/31/22 16:44 36.7 91 18 178/97 (124) 96 Room Air 07/31/22 16:25 Room Air 07/31/22 16:25 36.3 20 147/99 (115) 99 Room Air 07/31/22 16:15 Face Tent 10.00 07/31/22 16:10 20 161/99 (119) 100 Face Tent 10.00 07/31/22 16:00 20 170/99 (122) 100 Face Tent 10.00 07/31/22 16:00 Face Tent 10.00 07/31/22 15:50 20 120/80 (93) 100 Face Tent 10.00 07/31/22 15:45 Face Tent 10.00 07/31/22 15:40 20 116/56 (76) 100 Face Tent 10.00 07/31/22 15:36 36.3 20 93/67 (76) 100 Face Tent 10.00 07/31/22 15:36 Face Tent 10.00 07/31/22 13:19 91 07/31/22 11:30 36.6 82 18 184/97 (126) 97 Room Air 07/31/22 09:00 Room Air I & O 08/01/22 07:00 Intake Total 1740 ml Output Total 3275 ml Balance -1535 ml Capillary Refill : Less Than 3 SecondsLess Than 3 Seconds General Appearance: No Apparent Distress, Chronically ill, Thin HEENT: PERRL/EOMI, Normal ENT Inspection, Moist Mucous Membranes Neck: Supple, Limited Range of Motion (secondary to pain, although this has improved), Tender Lateral (improved), Other (right neck cellulitis improving with less erythema and swelling. I&D dressing and packing in place with no significant drainage.) Respiratory: No Accessory Muscle Use, No Respiratory Distress Cardiovascular: No Gallop, No Murmur, Tachycardia Peripheral Pulses: 2+ Dorsalis Pedis (R), 2+ Left Dors-Pedis (L), 2+ Radial Pulses (R), 2+ Radial Pulses (L) Gastrointestinal: normal bowel sounds, non tender, soft Extremity: Normal Capillary Refill, Non Tender, No Calf Tenderness, No Pedal Edema, Other (Wound to right forearm with scab and slight sloughing. Dressing in place. ) Neurologic/Psychiatric: Alert, Oriented x3, Normal Mood/Affect Skin: Normal Color, Warm/Dry, Erythema (Right neck, with evidence of purulent drainage on dressing), Other (Wound on right forearm, covered by bandage) Lymphatic: No Adenopathy Results Lab Laboratory Tests 07/31/22 11:28: Urine Opiates Screen NEGATIVE, Urine Oxycodone Screen NEGATIVE, Urine Methadone Screen NEGATIVE, Urine Propoxyphene Screen NEGATIVE, Urine Barbiturates Screen NEGATIVE, Ur Tricyclic Antidepressants Screen NEGATIVE, Urine Phencyclidine Screen NEGATIVE, Urine Amphetamines Screen POSITIVEH, Urine Methamphetamines Screen POSITIVEH, Urine Benzodiazepines Screen POSITIVEH, Urine Cocaine Screen NEGATIVE, Urine Cannabinoids Screen NEGATIVE 08/01/22 05:18: White Blood Count 6.9, Red Blood Count 4.12L, Hemoglobin 9.6L, Hematocrit 30L, Mean Corpuscular Volume 72L, Mean Corpuscular Hemoglobin 23L, Mean Corpuscular Hemoglobin Concent 32, Red Cell Distribution Width 19.9H, Platelet Count 468H, Mean Platelet Volume 8.0L, Immature Granulocyte % (Auto) 1, Neutrophils (%) (Auto) 66, Lymphocytes (%) (Auto) 22, Monocytes (%) (Auto) 7, Eosinophils (%) (Auto) 3, Basophils (%) (Auto) 0, Neutrophils # (Auto) 4.6, Lymphocytes # (Auto) 1.5, Monocytes # (Auto) 0.5, Eosinophils # (Auto) 0.2, Basophils # (Auto) 0.0, Immature Granulocyte # (Auto) 0.1, Sodium Level 136, Potassium Level 3.8, Chloride Level 104, Carbon Dioxide Level 24, Anion Gap 8, Blood Urea Nitrogen 12, Creatinine 0.80, Estimat Glomerular Filtration Rate 106, BUN/Creatinine Ratio 15, Glucose Level 113H, Calcium Level 8.8, Corrected Calcium 9.7, Total Bilirubin 0.3, Aspartate Amino Transf (AST/SGOT) 11, Alanine Aminotransferase (ALT/SGPT) 12, Alkaline Phosphatase 78, Total Protein 6.6, Albumin 2.9L Microbiology 07/29/22 Gram Stain - Final, Resulted 07/29/22 Wound Culture - Preliminary, Resulted Streptococcus viridans 07/29/22 Blood Culture - Preliminary, Resulted No growth Assessment/Plan Assessment/Plan Assessment/Plan Right neck Abscess and cellulitis S/p I&D procedure - POD 1 Leukocytosis IV polysubstance abuse Bipolar disorder Seizure disorder Surgical I&D yesterday, pt tolerated well. Irrigate with saline and pack wound to allow for drainage Continue IV abx - vancomycin and zosyn Pain control Continue wound care Pt is agreeable with plan TORO HAMILTON DO 08/01/222102: Subjective Subjective/Events-last exam Feeling better. Swelling/drainage/erythema improving. No new complaints. Denies n/v fever sweats chills shortness of breath or chest pain. Objective Exam General Appearance: No Apparent Distress, Chronically ill, Thin HEENT: PERRL/EOMI, Normal ENT Inspection Neck: Non Tender, Supple Respiratory: Chest Non Tender, No Accessory Muscle Use, No Respiratory Distress Cardiovascular: Regular Rate, Rhythm, No JVD Gastrointestinal: non tender, soft Extremity: Non Tender, No Calf Tenderness, Other (Wound to right forearm with scab ) Neurologic/Psychiatric: Alert, Oriented x3 Skin: Erythema (Right neck, with minimal purulent drainage less erythema) Lymphatic: No Adenopathy Assessment/Plan Assessment/Plan Assessment/Plan Right neck Abscess and cellulitis S/p I&D procedure - POD 1 Leukocytosis IV polysubstance abuse Bipolar disorder Seizure disorder Surgical I&D yesterday, pt tolerated well. Irrigate with saline and pack wound to allow for drainage, daily dressing changes Continue IV abx - vancomycin and zosyn Pain control Continue wound care Supervisory-Addendum Brief Verification & Attestation Participated in pt care: history, MDM, physical Personally performed: exam, history, MDM, supervision of care Care discussed with: Medical Student Procedures: n/a Results interpretation: Verified all documentation Verification and Attestation of Medical Student E/M Service A medical student performed and documented this service in my presence. I reviewed and verified all information documented by the medical student and made modifications to such information, when appropriate. I personally performed the physical exam and medical decision making. Toro Hamilton, Aug 01, 2022,21:03 ALAN BERNAL Aug 01, 2022 08:57 TORO HAMILTON DO Aug 01, 2022 21:03
[2022-08-01] MEDS: ACETAMINOPHEN 500 MG TAB (TYLENOL) PO PRN (09:57)
--- NOTE | 2022-08-01 11:53 | Progress Note ---
ALLAN ODELL 08/01/22 1153: Progress Note Orestes Brooks is a 51 year-old male who presented to the [facility] ED 07/29/22 with pain, erythema, and swelling of the right neck. His past medical history is significant for hiatal hernia, esophagitis, polysubstance use disorder (methamphetamine, opioids, marijuana, alcohol, tobacco), and a history of seizures that he reports began around age 12-13 prior to any substance use. He also has bipolar disorder with a history of multiple suicide attempts, most recently in January 2022. Mr. Brooks had been injecting methamphetamine and Fentanyl into his right arm recently. Leukocytosis was present on admission with WBC count of 23, & ESR was elevated at 71. Blood cultures were obtained, and broad-spectrum antibiotics were initiated with IV vancomycin and IV Zosyn. CT of the neck was obtained upon admission 07/29 and showed a large mass 10.1cm in largest dimension that directly contacted the right clavicle, involved the right sternocleidomastoid, and concerning for abscess vs malignancy. Incision & drainage of the abscess with subsequent packing was performed in the ED on 07/29. Overnight on 07/29-07/30, Mr. Brooks had an episode of hypertension with BP 225/108 with HR 101. Clonidine & Keppra were given. We initiated thiamine and folate supplementation + CIWA protocol on 07/30. He scored 9 on CIWA overnight 07/30-07/31 which prompted administration of lorazepam for alcohol withdrawal symptoms. Urine drug screen collected on 07/31 returned positive for amphetamines, methamphetamines, & benzodiazepines (although lorazepam had been administered during his hospital stay as previously stated). On 07/31, he successfully underwent incision & drainage of the abscess in the operating room with the general surgery team. Wound culture grew Strep viridans on 08/01, and his antibiotic regimen was changed from IV vancomycin & Zosyn to oral pencillin G. Blood cultures obtained early in his admission did not grow any pathogens. He was deemed medically ready for discharge on 08/01, with stable vital signs and a WBC count within the normal range at 6.9. He was provided education with regard to irrigation and packing of his wound, and has a prescription for oral penicillin G. ALEXANDRA WOODWARD DO 08/01/22 2018: Supervisory-Addendum Brief Verification & Attestation Participated in pt care: history, MDM, physical Personally performed: exam, history, MDM, supervision of care Care discussed with: Medical Student Procedures: n/a Results interpretation: Verified all documentation Verification and Attestation of Medical Student E/M Service A medical student performed and documented this service in my presence. I reviewed and verified all information documented by the medical student and made modifications to such information, when appropriate. I personally performed the physical exam and medical decision making. Alexandra Woodward, Aug 01, 2022,20:18 ALLAN ODELL Aug 01, 2022 11:53 ALEXANDRA WOODWARD DO Aug 01, 2022 20:18
[2022-08-01] MEDS ORDERED: AMOX500T2 PO (11:54)
[2022-08-01] MEDS ORDERED: ACHD5005 PO (11:54)
--- NOTE | 2022-08-01 11:55 | Discharge Summary ---
Discharge Summary Hospital Course Was the Problem List Reviewed?: Yes Problems/Dx: (1) Cellulitis and abscess of neck Status: Acute (2) Methamphetamine abuse Status: Acute Hospital Course Date of Admission: Jul 30, 2022 at 10:50 Admission Diagnosis : [facility] Date of [facility]: 08/01/22 Discharge Diagnosis: [ ] Hospital Course: Orestes Brooks is a 51 year-old male who presented to the [facility] ED 07/29/22 with pain, erythema, and swelling of the right neck. His past medical history is significant for hiatal hernia, esophagitis, polysubstance use disorder (methamphetamine, opioids, marijuana, alcohol, tobacco), and a history of seizures that he reports began around age 12-13 prior to any substance use. He also has bipolar disorder with a history of multiple suicide attempts, most recently in January 2022. Mr. Brooks had been injecting methamphetamine and Fentanyl into his right arm recently. Leukocytosis was present on admission with WBC count of 23, & ESR was elevated at 71. Blood cultures were obtained, and broad-spectrum antibiotics were initiated with IV vancomycin and IV Zosyn. CT of the neck was obtained upon admission 07/29 and showed a large mass 10.1cm in largest dimension that directly contacted the right clavicle, involved the right sternocleidomastoid, and concerning for abscess vs malignancy. Incision & drainage of the abscess with subsequent packing was performed in the ED on 07/29. Overnight on 07/29-07/30, Mr. Brooks had an episode of hypertension with BP 225/108 with HR 101. Clonidine & Keppra were given. We initiated thiamine and folate supplementation + CIWA protocol on 07/30. He scored 9 on CIWA overnight 07/30-07/31 which prompted administration of lorazepam for alcohol withdrawal symptoms. Urine drug screen collected on 07/31 returned positive for amphetamines, methamphetamines, & benzodiazepines (although lorazepam had been administered during his hospital stay as previously stated). On 07/31, he successfully underwent incision & drainage of the abscess in the operating room with the general surgery team. Wound culture grew Strep viridans on 08/01, and his antibiotic regimen was changed from IV vancomycin & Zosyn to oral pencillin G. Blood cultures obtained early in his admission did not grow any pathogens. He was deemed medically ready for discharge on 08/01, with stable vital signs and a WBC count within the normal range at 6.9. He was provided education with regard to irrigation and packing of his wound, and has a prescription for oral penicillin G. Labs and Pending Lab Test: Laboratory Tests 08/01/22 05:18: White Blood Count 6.9, Red Blood Count 4.12L, Hemoglobin 9.6L, Hematocrit 30L, Mean Corpuscular Volume 72L, Mean Corpuscular Hemoglobin 23L, Mean Corpuscular Hemoglobin Concent 32, Red Cell Distribution Width 19.9H, Platelet Count 468H, Mean Platelet Volume 8.0L, Immature Granulocyte % (Auto) 1, Neutrophils (%) (Auto) 66, Lymphocytes (%) (Auto) 22, Monocytes (%) (Auto) 7, Eosinophils (%) (Auto) 3, Basophils (%) (Auto) 0, Neutrophils # (Auto) 4.6, Lymphocytes # (Auto) 1.5, Monocytes # (Auto) 0.5, Eosinophils # (Auto) 0.2, Basophils # (Auto) 0.0, Immature Granulocyte # (Auto) 0.1, Sodium Level 136, Potassium Level 3.8, Chloride Level 104, Carbon Dioxide Level 24, Anion Gap 8, Blood Urea Nitrogen 12, Creatinine 0.80, Estimat Glomerular Filtration Rate 106, BUN/Creatinine Ratio 15, Glucose Level 113H, Calcium Level 8.8, Corrected Calcium 9.7, Total Bilirubin 0.3, Aspartate Amino Transf (AST/SGOT) 11, Alanine Aminotransferase (ALT/SGPT) 12, Alkaline Phosphatase 78, Total Protein 6.6, Albumin 2.9L Microbiology 07/29/22 Gram Stain - Final, Complete 07/29/22 Wound Culture - Final, Complete Streptococcus viridans 07/29/22 Blood Culture - Preliminary, Resulted No growth Home Meds Active Amoxicillin 500 Mg Tablet 500 Mg PO TID Assessment/Pt Instructions pcp 1 week Discharge Planning: <30 minutes discharge planning Discharge Physical Examination Vital Signs Vital Signs Date Time Temp Pulse Resp B/P (MAP) Pulse Ox O2 Delivery O2 Flow Rate FiO2 08/01/22 08:16 Room Air 08/01/22 07:31 36.1 89 20 164/93 (116) 96 07/31/22 16:15 10.00 07/29/22 22:54 21 General Appearance: No Apparent Distress, WD/WN, Chronically ill Allergies: Coded Allergies: Sulfa (Sulfonamide Antibiotics) (Verified Allergy, Unknown, Vomiting, 10/29/19) codeine (Verified Allergy, Unknown, Itching, 10/29/19) lurasidone (Unverified Allergy, Unknown, 09/19/21) pregabalin (Verified Allergy, Unknown, 08/17/18) Discharge Summary Date of Admission Jul 30, 2022 at 10:50 Date of Discharge Discharge Date: Aug 01, 2022 Admission Diagnosis Assessment: Sepsis Cellulitis of the neck with abscess needs debridement Meth use Alcohol withdrawal Plan: IV antibiotics I&D Supportive care NAVID HERNÁNDEZ DO Aug 01, 2022 11:54
[2022-08-01 12:47] VITALS: BP 130/81
[2022-08-01] MEDS: ENOXAPARIN INJECTION 30 MG/0.3 ML SYR SC SCH (13:17)
--- NOTE | 2022-08-02 14:31 | Physician Query Clarification ---
PQ-Debridement Admission/Discharge Admission Date: Jul 30, 2022 at 10:50 Discharge Date: Aug 01, 2022 at 15:30 Dr. Hamilton, PHYSICIAN RESPONSE Operative report/procedure note reflects the following description: 07/31/22 Incision and drainage of right neck abscess. QUESTION: Please clarify the depth of the debridement. Please clarify if the debridement was excisional or non-excisional. Please document a response in the Progress Notes or Discharge Summary. 1. Level: Skin Subcutaneous tissue Fascia Muscle Bone 2. Type of debridement: Excisional Non-excisional 3. Other, with explanation of the clinical findings 4. Clinically unable to determine PQ Debridement : Level: Other-Explanation below Type: Other-Explanation below Explanation clinically finding no debridement done, incision and drainage performed through skin and subcutaneous tissue into abscess cavity. In responding to this query, please exercise your independent professional judgment. The purpose of this communication is to more accurately reflect the complexity of your patients condition. The fact that a question is asked does not imply that any particular answer is desired or expected. Thank you for your timely response to this clarification. Requestors name: Luda THIS PHYSICIAN QUERY FORM IS A PERMANENT PART OF THE MEDICAL RECORD LUDA MOON Aug 02, 2022 14:30 TORO HAMILTON DO Aug 16, 2022 13:37
--- NOTE | 2022-08-02 14:34 | Physician Query Clarification ---
PQ-Uncertain Diagnosis Admission/Discharge Admission Date: Jul 30, 2022 at 10:50 Discharge Date: Aug 01, 2022 at 15:30 Dr. Woodward, The medical record reflects the following clinical scenario: History/Risk Factors: cellulitis of neck Clinical Findings: lactic acid 1.25, WBC 23.0, T 36.9, P 101, R 22 Treatment: IV Pipercillin, IV Vancomycin Question: Is sepsis a clinically valid diagnosis? Sepsis was documented in the admission assessment with no further documentation in the medical record. Please document a response in Progress Note or Discharge Summary. 1. Yes, clinically valid, condition resolved. 2. No, condition ruled out. 3. Other, with explanation of clinical findings. 4. Undetermined, no explanation for clinical findings. PHYSICIAN RESPONSE Diagnosis clinically valid: Yes, Conditon resolved In responding to this query, please exercise your independent professional judgment. The purpose of this communication is to more accurately reflect the complexity of your patients condition. The fact that a question is asked does not imply that any particular answer is desired or expected. Thank you for your timely response to this clarification. Requestors name: Luda THIS PHYSICIAN QUERY FORM IS A PERMANENT PART OF THE MEDICAL RECORD LUDA MOON Aug 02, 2022 14:34 NAVID WOODWARD DO Aug 02, 2022 17:07
== END 2022-08-01 15:30 | disposition home or self-care (01) | DRG 872 ==
LOC: EDUNIT# 16:20 → ER 16:23 → 4TH 20:50 → UNDOADMOB 20:50 → 4TH 22:45 → INTOOBSV 07-30 10:50 → OBSVTOIN 07-30 10:50 → 4TH 07-31 10:36 → UNDODISIN 08-01 15:30
PROVIDERS: ADMIT Internal Medicine; ATTEND Internal Medicine
PROC: 0J940ZZ Drainage of Right Neck Subcutaneous Tissue and Fascia, Open Approach (ICD-10-PCS; principal; 2022-07-29)
DX: A41.9 Sepsis, unspecified organism (principal); L03.221 Cellulitis of neck; L03.113 Cellulitis of right upper limb; F10.139 Alcohol abuse with withdrawal, unspecified; F15.10 Other stimulant abuse, uncomplicated; F11.10 Opioid abuse, uncomplicated; F12.10 Cannabis abuse, uncomplicated; F17.210 Nicotine dependence, cigarettes, uncomplicated; I10 Essential (primary) hypertension; G40.909 Epilepsy, unspecified, not intractable, without status epilepticus; F41.9 Anxiety disorder, unspecified; F31.9 Bipolar disorder, unspecified; F60.9 Personality disorder, unspecified; Y90.0 Blood alcohol level of less than 20 mg/100 ml; B95.4 Other streptococcus as the cause of diseases classified elsewhere
CPT/HCPCS: 36415; 70491; 80053; 80202; 80306; 80320; 82947; 83605; 85007; 85025; 85027; 85610; 85652; 85730; 86141; 87040; 87070; 87205; 94760; 96365; 96375; G0378

== ENCOUNTER 2022-09-11 06:23 | Observation (INO) | payer SELFPAY ==
[~2022-09-11] VITALS: Ht 187 cm; Wt 61.9 kg
[~2022-09-11 06:23] MED LIST changes: +ACHD5005 PO; +AMOX500T2 PO
--- NOTE | 2022-09-11 06:57 | ED Psychosocial ---
General Chief Complaint: Psych/Social Disorder Stated Complaint: PSYCH EVAL Nursing Triage Note: PATIENT ARRIVED VIA EMS WITH PATIENT, PATIENT WAS WITH LAW ENFORCEMENT GETTING A MENTAL HEALTH SCREEN. 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 PATIENT AGGITATED, UANBLE TO SIT STILL. Source: patient, EMS, old records Exam Limitations: clinical condition History of Present Illness Date Seen by Provider: Sep 11, 2022 Time Seen by Provider: 06:39 Initial Comments This 51-year-old male presents to the emergency room via EMS acutely psychotic presumably from methamphetamine use. He was found by law enforcement. He is hallucinating and agitated and exhibiting dystonic movements. They brought him to the emergency room for a "mental health screening". Patient has history of polysubstance abuse. He was recently admitted in early July for treatment of a large abscess by his neck. Patient is alert on arrival but disoriented. A ne edle and a timekeeper supervisor were found in his pocket by law enforcement. He has a lump in the right AC which may be induration or abscess at injection site. He is afebrile. Patient reports he is to check into rehab and [facility] in the near future. Patient commented to emergency services that he received his methamphetamine from the usual source, but the reaction during this use was much different. Of note, we received another patient via EMS with similar severe agitation and dystonic reactions from methamphetamine use shortly after the arrival of this patient. Allergies and Home Medications Allergies Coded Allergies: Sulfa (Sulfonamide Antibiotics) (Verified Allergy, Unknown, Vomiting, 10/29/19) codeine (Verified Allergy, Unknown, Itching, 10/29/19) lurasidone (Unverified Allergy, Unknown, 09/19/21) pregabalin (Verified Allergy, Unknown, 08/17/18) Patient Home Medication List Home Medication List Reviewed: Yes Amoxicillin (Amoxicillin) 500 Mg Tablet, 500 MG PO TID Prescribed by: NAVID HERNÁNDEZ on 08/01/22 1154 Hydrocodone/Acetaminophen (Hydrocodone-Acetamin 5-325 mg) 5 Mg-325 Mg Tablet, 1 TAB PO Q4H PRN for PAIN-MODERATE (5-7) Prescribed by: NAVID HERNÁNDEZ on 08/01/22 1154 Review of Systems Constitutional: see HPI EENTM: no symptoms reported Respiratory: no symptoms reported Cardiovascular: no symptoms reported Gastrointestinal: no symptoms reported Genitourinary: no symptoms reported Musculoskeletal: no symptoms reported Skin: see HPI Psychiatric/Neurological: See HPI Past Tpdkaoq-Ifnogx-Wwlcot Hx Patient Social History Substance use?: Yes Substance type: Methamphetamine Alcohol Use?: Yes Immunizations Up To Date Influenza Vaccine Up-to-Date: Yes; Up-to-Date First/Initial COVID19 Vaccinat: 12/20/20 Second COVID19 Vaccination Hamlet: 06/11 Third COVID19 Vaccination Date: NO Seasonal Allergies Seasonal Allergies: No Past Medical History Surgery/Hospitalization HX: HX OF ANEMIA NO KNOWN CAUSE Surgeries: Yes (LEFT LOWER LEG FX/ORIF, endoscopy) Adenoidectomy, Orthopedic, Tonsillectomy Respiratory: No Currently Using CPAP: No Currently Using BIPAP: No Cardiac: Yes Hypertension Neurological: Yes (SEIZURES X 3--FELT TO BE FROM DRUG WITH DRAWL--DEPAKOTE, PER PT) Seizure Disorder Genitourinary: No Gastrointestinal: Yes Diverticulosis, Esophagitis, Hiatal Hernia Musculoskeletal: Yes (LEFT LOWER LEG FX/ORIF) Fractures Endocrine: No HEENT: No Cancer: No Psychosocial: Yes (Polysubstance abuse) Eating Disorder, Anxiety, Suicide Attempts, Bipolar, Personality Disorder Integumentary: Yes (History of large neck abscess) Blood Disorders: No Adverse Reaction/Blood Tranf: No Family Medical History No Pertinent Family Hx Physical Exam Vital Signs - First Documented 09/11/22 09/11/22 06:27 07:55 Pulse 108 Resp 22 B/P (MAP) 122/72 (89) Pulse Ox 97 O2 Delivery Room Air Capillary Refill : Less Than 3 Seconds Height, Weight, BMI Height: 6'2.00" Weight: 137lbs. oz. 62.663139oa; 23.00 BMI Method:Stated General Appearance: WD/WN, moderate distress (Agitated) HEENT: PERRL/EOMI, normal ENT inspection Neck: normal inspection Respiratory: lungs clear, normal breath sounds, no respiratory distress Cardiovascular: regular rate, rhythm, no edema, no murmur Gastrointestinal: non tender, soft Extremities: no pedal edema, other (Lump in the right AC region) Neurologic/Psychiatric: no motor/sensory deficits, alert, other (Disoriented, agitated, dystonic movements) Appearance/Memory: disheveled, impaired insight Behavior/Eye Contact: avoids eye contact Skin: normal color, warm/dry, other (Lump in the right AC region) Progress/Results/Core Measures Results/Orders Lab Results Laboratory Tests Test 09/11/22 09:19 Range/Units White Blood Count 9.5 4.3-11.0 10^3/uL Red Blood Count 3.88 L 4.30-5.52 10^6/uL Hemoglobin 9.3 L 13.3-17.7 g/dL Hematocrit 30 L 40-54 % Mean Corpuscular Volume 77 L 80-99 fL Mean Corpuscular Hemoglobin 24 L 25-34 pg Mean Corpuscular Hemoglobin Concent 31 L 32-36 g/dL Red Cell Distribution Width 18.4 H 10.0-14.5 % Platelet Count 559 H 130-400 10^3/uL Mean Platelet Volume 8.0 L 9.0-12.2 fL Immature Granulocyte % (Auto) 0 % Neutrophils (%) (Auto) 81 H 42-75 % Lymphocytes (%) (Auto) 11 L 12-44 % Monocytes (%) (Auto) 7 0-12 % Eosinophils (%) (Auto) 1 0-10 % Basophils (%) (Auto) 0 0-10 % Neutrophils # (Auto) 7.7 1.8-7.8 10^3/uL Lymphocytes # (Auto) 1.1 1.0-4.0 10^3/uL Monocytes # (Auto) 0.7 0.0-1.0 10^3/uL Eosinophils # (Auto) 0.1 0.0-0.3 10^3/uL Basophils # (Auto) 0.0 0.0-0.1 10^3/uL Immature Granulocyte # (Auto) 0.0 0.0-0.1 10^3/uL Sodium Level 138 135-145 MMOL/L Potassium Level 4.3 3.6-5.0 MMOL/L Chloride Level 109 H 98-107 MMOL/L Carbon Dioxide Level 19 L 21-32 MMOL/L Anion Gap 10 5-14 MMOL/L Blood Urea Nitrogen 15 7-18 MG/DL Creatinine 0.84 0.60-1.30 MG/DL Estimat Glomerular Filtration Rate 105 BUN/Creatinine Ratio 18 Glucose Level 92 70-105 MG/DL Calcium Level 8.9 8.5-10.1 MG/DL Corrected Calcium 9.0 8.5-10.1 MG/DL Magnesium Level 2.2 1.6-2.4 MG/DL Total Bilirubin 0.4 0.1-1.0 MG/DL Aspartate Amino Transf (AST/SGOT) 23 5-34 U/L Alanine Aminotransferase (ALT/SGPT) 15 0-55 U/L Alkaline Phosphatase 106 40-136 U/L Total Creatine Kinase 541 H 30-200 U/L C-Reactive Protein High Sensitivity 0.58 H 0.00-0.50 MG/DL Total Protein 6.8 6.4-8.2 GM/DL Albumin 3.9 3.2-4.5 GM/DL Serum Alcohol < 10 <10 MG/DL My Orders Orders - DK HAGAN MD Alcohol (09/11/22 06:48) Cbc With Automated Diff (09/11/22 06:48) Comprehensive Metabolic Panel (09/11/22 06:48) Creatine Kinase (09/11/22 06:48) Hs C Reactive Protein (09/11/22 06:48) Drug Screen Stat (Urine) (09/11/22 06:48) Magnesium (09/11/22 06:48) Ua Culture If Indicated (09/11/22 06:48) Ed Iv/Invasive Line Start (09/11/22 06:48) Lactated Ringers (Lr 1000 Ml Iv Solution (09/11/22 07:00) Olanzapine Orally Dissolve Tab (Zyprexa (09/11/22 07:00) Ziprasidone Injection (Geodon Injection) (09/11/22 07:09) Water (Sterile) For Injection (Sterile W (09/11/22 07:10) Ziprasidone Injection (Geodon Injection) (09/11/22 08:15) Ziprasidone Injection (Geodon Injection) (09/11/22 08:30) Water (Sterile) For Injection (Sterile W (09/11/22 08:30) Ed Admission (Communication) (09/11/22 10:36) Medications Given in ED Current Medications Medications Dose Ordered Sig/Noe Route Start Time Stop Time Status Last Admin Dose Admin Lactated Ringer's 1,000 ml @ 0 mls/hr Q0M ONCE IV 09/11/22 07:00 09/11/22 07:01 DC 09/11/22 09:22 1,000 MLS/HR Olanzapine 5 mg ONCE ONCE SL 09/11/22 07:00 09/11/22 07:01 DC 09/11/22 06:32 5 MG Ziprasidone 10 mg ONCE ONCE IM 09/11/22 08:15 09/11/22 08:16 DC 09/11/22 07:15 10 MG Ziprasidone 10 mg ONCE ONCE IM 09/11/22 08:30 09/11/22 08:31 DC 09/11/22 08:40 10 MG Vital Signs/I&O 09/11/22 09/11/22 06:27 07:55 Pulse 108 92 Resp 22 16 B/P (MAP) 122/72 (89) Pulse Ox 97 98 O2 Delivery Room Air Room Air Progress Progress Note #1: Time: 06:58 Progress Note Patient was interviewed and examined upon arrival. He provides almost no history. Zyprexa was given sublingually to help calm him down. Lab evaluation and IV hydration will follow. Progress Note #2: Time: 07:17 Progress Note Zyprexa did not seem to have a significant impact on the patient. Geodon 10 mg IM was administered. For safety of staff and patient, we will wait until he calms down before establishing an IV or drawing blood. Patient made vague comments to staff about suicidal ideation but "scrapping my plan." He got up, put on his coat, and attempted to elope. We were able to gently redirect him and administer the Geodon. Progress Note #3: Time: 08:24 Progress Note Patient is calm at rest at this time. However, he is still too agitated with attempts to start an IV or draw blood to do so safely. We are administering another dose of Geodon 10 mg and will attempt again after that takes effect. Progress Note #4: Time: 10:43 Progress Note Shortly after receiving the second dose of Geodon, patient walked about the room and urinated a large volume in multiple areas in the room. He was still agitated and confused, but we were able to redirect him to the bed. He has remained quietly in the bed and has not attempted to elope or leave the room since then. Since patient made some suicidal suggestions, he will need a behavioral health screening before he can be discharged. Due to the extent of his psychosis and agitation requiring multiple doses of antipsychotics, he will be admitted to the ICU. Labs have been reviewed including CBC, CMP, CK, magnesium, and alcohol level. UDS is still pending as patient did not place any of his urine in a collection container. I have reviewed all of the labs and note a mild anemia, mild thrombocytosis, and mild elevation in CK level. Case was discussed with Dr. Hernández, hospitalist on-call, who accepts admission. She is placing admission orders. Departure Communication (Admissions) Time/Spoke to Admitting Phy: 10:30 Dr. Hernández Impression Primary Impression: Methamphetamine-induced psychotic disorder Additional Impressions: Polysubstance abuse Agitation Suicidal ideation Disposition: ADMITTED INPATIENT Condition: Improved Admissions Decision to Admit Reason: Admit from ER (General) Decision to Admit/Date: Sep 11, 2022 Time/Decision to Admit Time: 10:30 Departure-Patient Inst. Referrals: [facility]/RENEE (PCP/Family) Primary Care Physician Copy Copies To 1: [facility]/DK TORRES MD Sep 11, 2022 06:57
[2022-09-11] MEDS ORDERED: LACTATED RINGERS 1,000 ML IV ONE (07:00)
[2022-09-11] MEDS ORDERED: OLANZapine 5 MG ODT (ZyPREXA ZYDIS) SL ONE (07:00)
[2022-09-11] MEDS ORDERED: LORazepam 0.5 MG (ATIVAN) TABLET BC STA (07:01)
[2022-09-11] MEDS ORDERED: ZIPRASIDONE 20 MG INJ (GEODON) VIAL IM ONE ×3 (07:09→08:30)
[2022-09-11] MEDS ORDERED: WATER (STERILE) FOR INJECTION 10 ML ONE (07:10)
[2022-09-11] MEDS ORDERED: WATER (STERILE) FOR INJ 10 ML BTL INJ SCH ×2 (08:30→12:15)
[2022-09-11 09:26] LABS: BASOPHILS % (AUTO) 0 % (0-10); EOSINOPHILS # (AUTO) 0.1 10^3/uL (0.0-0.3); EOSINOPHILS % (AUTO) 1 % (0-10); HEMATOCRIT 30 % (40-54); HEMOGLOBIN 9.3 g/dL (13.3-17.7); LYMPHOCYTES # (AUTO) 1.1 10^3/uL (1.0-4.0); LYMPHOCYTES % (AUTO) 11 % (12-44); MEAN CORPUSCULAR HEMOGLOBIN 24 pg (25-34); MEAN CORPUSCULAR HGB CONC 31 g/dL (32-36); MEAN CORPUSCULAR VOLUME 77 fL (80-99); MONOCYTES # (AUTO) 0.7 10^3/uL (0.0-1.0); MONOCYTES % (AUTO) 7 % (0-12); NEUTROPHILS # (AUTO) 7.7 10^3/uL (1.8-7.8); NEUTROPHILS % (AUTO) 81 % (42-75); PLATELET COUNT 559 10^3/uL (130-400); WHITE BLOOD COUNT 9.5 10^3/uL (4.3-11.0)
[2022-09-11 09:35] LABS: ALBUMIN 3.9 GM/DL (3.2-4.5); CHLORIDE 109 MMOL/L (98-107); POTASSIUM 4.3 MMOL/L (3.6-5.0); SODIUM 138 MMOL/L (135-145)
[2022-09-11 09:36] LABS: CALCIUM 8.9 MG/DL (8.5-10.1)
[2022-09-11 09:38] LABS: GLUCOSE 92 MG/DL (70-105); TOTAL PROTEIN 6.8 GM/DL (6.4-8.2)
[2022-09-11 09:39] LABS: BILIRUBIN,TOTAL 0.4 MG/DL (0.1-1.0); CARBON DIOXIDE 19 MMOL/L (21-32)
[2022-09-11 09:41] LABS: ALKALINE PHOSPHATASE 106 U/L (40-136)
[2022-09-11 09:42] LABS: CREATININE SERUM 0.84 MG/DL (0.60-1.30); GFR ESTIMATED 105
[2022-09-11 09:43] LABS: BUN/CREATININE RATIO 18
[2022-09-11 09:44] LABS: ALANINE AMINOTRANSFERASE 15 U/L (0-55); MAGNESIUM 2.2 MG/DL (1.6-2.4)
[2022-09-11 09:45] LABS: CREATINE KINASE 541 U/L (30-200)
[2022-09-11] MEDS ORDERED: NS IV 500 ML 500 ML IV PRN (12:15)
[2022-09-11] MEDS ORDERED: MELATONIN 3 MG TABLET PO PRN (12:15)
[2022-09-11] MEDS ORDERED: LACTULOSE SYRUP 10GM/15ML (ENULOSE) 30ML UDC PO PRN (12:15)
[2022-09-11] MEDS ORDERED: diphenhydrAMINE 25 MG TAB (BENADRYL) PO PRN (12:15)
[2022-09-11] MEDS ORDERED: ONDANSETRON 4 MG (ZOFRAN) ORAL DISSOLVE TAB PO PRN (12:15)
[2022-09-11] MEDS ORDERED: DexMEDEtomidine 250 ML DRIP 250 ML IV SCH (12:15)
[2022-09-11] MEDS ORDERED: ANTACID SUSP 30 ML UDC (MYLANTA) PO PRN (12:15)
[2022-09-11] MEDS ORDERED: polyethylene glycoL POWDER 17 GM (MIRALAX) PACK PO PRN (12:15)
[2022-09-11] MEDS ORDERED: ONDANSETRON 4 MG/2 ML (SDV) Z0FRAN IV PRN (12:15)
[2022-09-11] MEDS ORDERED: diphenhydrAMINE 50 MG/ML INJ (BENADRYL) IVP PRN (12:15)
[2022-09-11] MEDS ORDERED: CALCIUM CARBONATE 500 MG (TUMS) TAB.CHEW PO PRN (12:15)
[2022-09-11] MEDS ORDERED: ACETAMINOPHEN 325 MG TABLET PO PRN (12:15)
[2022-09-11] MEDS ORDERED: BISACODYL 10 MG SUPP (DULCOLAX) PR PRN (12:15)
[2022-09-11] MEDS ORDERED: ZIPRASIDONE 20 MG INJ (GEODON) VIAL IM PRN (12:15)
[2022-09-11] MEDS ORDERED: MILK OF MAGNESIA 400 MG/5 ML 30 ML UDC PO PRN (12:15)
[2022-09-11] MEDS ORDERED: HYDROmorphone 2 MG/ML VIAL (DILAUDID) IV PRN (12:15)
[2022-09-11 12:26] VITALS: BP 148/90
[2022-09-11] MEDS ORDERED: RT-ALBUTEROL SULF 2.5 MG/3 ML PRE-MIX VIAL INH PRN (12:30)
[2022-09-11] MEDS ORDERED: ENOXAPARIN 40 MG/0.4 ML (LOVENOX) SYR SC SCH (12:30)
--- NOTE | 2022-09-11 12:56 | History & Physical-Hospitalist ---
History of Present Illness HPI/Chief Complaint CC: Meth withdrawal HPI: This is a 51yoWM known to me from recent neck abscess s/p I&D by Dr Hamilton 3 weeks ago who has a h/o meth use and presented with out of control behavior. Patient initially reported suicidal ideation but no longer voices that. No details obtained from the patient. Source: RN/MD Exam Limitations: clinical condition Date Seen 09/11/22 Time Seen by a Provider: 13:00 Attending Physician Page/[facility] PCP Admitting Physician: Alexandra Woodward DO Attending Physician: Alexandra Woodward DO Referring Physician Date of Admission Sep 11, 2022 at 12:01 Home Medications & Allergies Home Medications Reviewed patient Home Medication Reconciliation performed by pharmacy medication reconciliations transport tank technician and/or nursing. Patients Allergies have been reviewed. Allergies Allergies Coded Allergies Sulfa (Sulfonamide Antibiotics) (Verified Allergy, Unknown, Vomiting, 10/29/19) codeine (Verified Allergy, Unknown, Itching, 10/29/19) lurasidone (Unverified Allergy, Unknown, 09/19/21) pregabalin (Verified Allergy, Unknown, 08/17/18) Past Xlesuin-Kmnzsw-Klctjn Hx Patient Social History Marrital Status: single Employed/Student: unemployed Smoking Status: Current Everyday Smoker Substance use?: Yes Substance type: Methamphetamine Alcohol Use?: Yes Immunizations Up To Date Date of Influenza Vaccine: Apr 21, 2021 First/Initial COVID19 Vaccinat: 12/20/20 Second COVID19 Vaccination Hamlet: 06/11 Seasonal Allergies Seasonal Allergies: No Current Status Communicates: Verbally Primary Language: Macedonian Preferred Spoken Language: Macedonian Past Medical History Surgeries: Adenoidectomy, Orthopedic, Tonsillectomy Currently Using CPAP: No Currently Using BIPAP: No Hypertension Seizure Disorder Diverticulosis, Esophagitis, Hiatal Hernia Fractures Eating Disorder, Anxiety, Suicide Attempts, Bipolar, Personality Disorder Blood Disorders: No Adverse Reaction/Blood Tranf: No Family Medical History No Pertinent Family Hx Review of Systems Constitutional: see HPI Physical Exam Physical Exam Vital Signs Vital Signs - First Documented 09/11/22 09/11/22 09/11/22 09/11/22 09/11/22 06:27 07:55 12:26 13:39 15:23 Temp 36.6 Pulse 108 Resp 22 B/P (MAP) 122/72 (89) Pulse Ox 97 O2 Delivery Room Air O2 Flow Rate 0.00 FiO2 21 Capillary Refill : Less Than 3 Seconds Height, Weight, BMI Height: 6'2.00" Weight: 137lbs. oz. 62.135252fb; 23.00 BMI Method:Stated General Appearance: No Apparent Distress, Chronically ill, Thin Respiratory: Lungs Clear, Normal Breath Sounds Cardiovascular: Regular Rate, Rhythm Neurologic/Psychiatric: Other (asleep) Results Results/Procedures Labs Laboratory Tests 09/11/22 09:19 Patient resulted labs reviewed. Assessment/Plan Admission Diagnosis Assessment: Meth withdrawal Out of control behavior Plan: Monitor closely Admission Status: Observation ALEXANDRA WOODWARD DO Sep 11, 2022 12:56
[2022-09-11] MEDS: NS IV 1000 ML 1,000 ML IV SCH ×3 (13:56→23:59)
[2022-09-11] MEDS ORDERED: LORazepam INJ 2 MG/ML (ATIVAN) VIAL IVP PRN (20:45)
[2022-09-11] MEDS ORDERED: LORazepam 0.5 MG (ATIVAN) TABLET PO PRN (20:45)
[2022-09-11] MEDS: DOCUSATE SODIUM 100 MG (COLACE) CAP PO SCH (21:36)
[2022-09-11] MEDS: SENNOSIDES 8.6 MG (SENOKOT) TAB PO SCH (21:37)
[2022-09-12 00:11] VITALS: BP 150/83
[2022-09-12 04:50] VITALS: BP 157/86
[2022-09-12] MEDS: NS IV 1000 ML 1,000 ML IV SCH (04:59)
[2022-09-12 06:00] VITALS: BP 153/77
[2022-09-12] MEDS ORDERED: KCL 20 MEQ TAB (K-DUR) PO SCH (06:00)
[2022-09-12] MEDS ORDERED: POTASSIUM CL 10MEQ/50ML IVPB 50 ML IV SCH (06:00)
[2022-09-12] MEDS ORDERED: MAGNESIUM 1 GM/100 ML IVPB 100 ML IV SCH (06:00)
[2022-09-12] MEDS: SENNOSIDES 8.6 MG (SENOKOT) TAB PO SCH (07:36)
[2022-09-12] MEDS: DOCUSATE SODIUM 100 MG (COLACE) CAP PO SCH (07:36)
[2022-09-12 07:56] VITALS: BP 165/85
[2022-09-12 09:49] LABS: BASOPHILS % (AUTO) 1 % (0-10); EOSINOPHILS # (AUTO) 0.2 10^3/uL (0.0-0.3); EOSINOPHILS % (AUTO) 4 % (0-10); HEMATOCRIT 31 % (40-54); HEMOGLOBIN 9.6 g/dL (13.3-17.7); LYMPHOCYTES # (AUTO) 1.2 10^3/uL (1.0-4.0); LYMPHOCYTES % (AUTO) 24 % (12-44); MEAN CORPUSCULAR HEMOGLOBIN 24 pg (25-34); MEAN CORPUSCULAR HGB CONC 31 g/dL (32-36); MEAN CORPUSCULAR VOLUME 77 fL (80-99); MONOCYTES # (AUTO) 0.4 10^3/uL (0.0-1.0); MONOCYTES % (AUTO) 8 % (0-12); NEUTROPHILS # (AUTO) 3.1 10^3/uL (1.8-7.8); NEUTROPHILS % (AUTO) 63 % (42-75); PLATELET COUNT 538 10^3/uL (130-400); WHITE BLOOD COUNT 4.9 10^3/uL (4.3-11.0)
[2022-09-12 09:58] LABS: ALBUMIN 3.6 GM/DL (3.2-4.5)
[2022-09-12 09:59] LABS: POTASSIUM 3.8 MMOL/L (3.6-5.0)
[2022-09-12 10:00] LABS: CALCIUM 8.6 MG/DL (8.5-10.1)
[2022-09-12 10:01] LABS: TOTAL PROTEIN 6.8 GM/DL (6.4-8.2)
[2022-09-12 10:03] LABS: BILIRUBIN,TOTAL 0.8 MG/DL (0.1-1.0)
[2022-09-12 10:05] LABS: CREATININE SERUM 0.79 MG/DL (0.60-1.30)
[2022-09-12] MEDS ORDERED: HYDR50TA76 PO (10:06)
[2022-09-12] MEDS ORDERED: OLAN15TA35 PO (10:06)
[2022-09-12 10:07] LABS: MAGNESIUM 1.8 MG/DL (1.6-2.4)
--- NOTE | 2022-09-12 10:40 | Discharge Summary ---
Discharge Summary Hospital Course Was the Problem List Reviewed?: Yes Problems/Dx: (1) Methamphetamine-induced psychotic disorder Status: Acute (2) Polysubstance abuse Status: Acute Hospital Course Date of Admission: Sep 11, 2022 at 12:01 Admission Diagnosis : [facility] Date of Discharge: 09/12/22 Discharge Diagnosis: [ ] Hospital Course: Short course after he was admitted for meth withdrawal. No meds were changed and patient ultimately returned to [facility] and [place] Labs and Pending Lab Test: Laboratory Tests 09/12/22 09:42: White Blood Count 4.9, Red Blood Count 4.01L, Hemoglobin 9.6L, Hematocrit 31L, Mean Corpuscular Volume 77L, Mean Corpuscular Hemoglobin 24L, Mean Corpuscular Hemoglobin Concent 31L, Red Cell Distribution Width 18.4H, Platelet Count 538H, Mean Platelet Volume 8.0L, Immature Granulocyte % (Auto) 0, Neutrophils (%) (Auto) 63, Lymphocytes (%) (Auto) 24, Monocytes (%) (Auto) 8, Eosinophils (%) (Auto) 4, Basophils (%) (Auto) 1, Neutrophils # (Auto) 3.1, Lymphocytes # (Auto) 1.2, Monocytes # (Auto) 0.4, Eosinophils # (Auto) 0.2, Basophils # (Auto) 0.0, Immature Granulocyte # (Auto) 0.0, Sodium Level 137, Potassium Level 3.8, Chloride Level 108H, Carbon Dioxide Level 20L, Anion Gap 9, Blood Urea Nitrogen 9, Creatinine 0.79, Estimat Glomerular Filtration Rate 107, BUN/Creatinine Ratio 11, Glucose Level 70, Calcium Level 8.6, Corrected Calcium 8.9, Magnesium Level 1.8, Total Bilirubin 0.8, Aspartate Amino Transf (AST/SGOT) 18, Alanine Aminotransferase (ALT/SGPT) 13, Alkaline Phosphatase 110, Total Protein 6.8, Albumin 3.6 Microbiology 09/11/22 MRSA Screen - Final, Complete MRSA not isolated Home Meds Active Reported Hydroxyzine HCl 50 Mg Tablet 50 Mg PO HS PRN Olanzapine 15 Mg Tablet 15 Mg PO HS Assessment/Pt Instructions PCP 1 week Discharge Planning: <30 minutes discharge planning Discharge Instructions Discharge Diet: No Restrictions Activity as Tolerated: Yes Discharge Physical Examination Vital Signs Vital Signs Date Time Temp Pulse Resp B/P (MAP) Pulse Ox O2 Delivery O2 Flow Rate FiO2 09/12/22 08:00 Room Air 09/12/22 07:56 36.9 70 12 165/85 (111) 97 09/12/22 07:55 0.00 09/11/22 12:26 21 General Appearance: No Apparent Distress, WD/WN, Chronically ill Respiratory: Lungs Clear, Normal Breath Sounds Cardiovascular: Regular Rate, Rhythm Allergies: Coded Allergies: Sulfa (Sulfonamide Antibiotics) (Verified Allergy, Unknown, Vomiting, 10/29/19) codeine (Verified Allergy, Unknown, Itching, 10/29/19) lurasidone (Unverified Allergy, Unknown, 09/19/21) pregabalin (Verified Allergy, Unknown, 08/17/18) Discharge Summary Date of Admission Sep 11, 2022 at 12:01 Date of Discharge Discharge Date: Sep 12, 2022 Admission Diagnosis Assessment: Meth withdrawal Out of control behavior Plan: Monitor closely NAVID HERNÁNDEZ DO Sep 12, 2022 10:40
[2022-09-12 12:00] VITALS: BP 164/85
--- NOTE | 2022-09-12 12:43 | Physical Therapy Evaluation ---
PT Evaluation-General Medical Diagnosis Admission Date Sep 11, 2022 at 12:01 Medical Diagnosis: psychosis Onset Date: Sep 11, 2022 Therapy Diagnosis Therapy Diagnosis: impaired mobility Height/Weight Height (Feet): 6 Height (Inches): 2.00 Weight (Pounds): 137 Precautions Precautions/Isolations: Seizure, Fall Prevention Referral Physician: Alexandra Woodward Reason for Referral: Evaluation/Treatment Medical History Pertinent Medical History: HTN Additional Medical History seizures; substance abuse Current History Pt admitted via EMS for psychotic episode from suspected injection of methamphetamine. Social History Pt not able to provide a medical history. Throughout the therapy session he was mumbling and talking about situations that were not real or in the present tense. Prior Prior Level of Function SCALE: Activities may be completed with or without assistive devices. 5-Twgofaskxm-frtczrl completes the activity by him/herself with no assistance from a helper. 5-Set-up or Clean-up Assistance-helper sets up or cleans up; patient completes activity. [place] assists only prior to or following the activity. 4-Supervision or Touching Assistance-helper provides verbal cues and/or touching/steadying and/or contact guard assistance as patient completes activity. Assistance may be provided throughout the activity or intermittently. 3-Partial/Moderate Assistance-helper does LESS THAN HALF the effort. Keystone lifts, holds or supports trunk or limbs, but provides less than half the effort. 2-Substantial/Maximal Assistance-helper does MORE THAN HALF the effort. Keystone lifts or holds trunk or limbs and provides more than half the effort. 2-Msiztteem-lgoshf does ALL the effort. Patient does none of the effort to com plete the activity. Or, the assistance of 2 or more helpers is required for the patient to complete the activity. If activity was not attempted, code reason: 7-Patient Refused. 9-Not Applicable-not attempted and the patient did not perform the activity before the current illness, exacerbation or injury. 10-Not Attempted due to Environmental Limitations-(lack of equipment, weather restraints, etc.). 88-Not Attempted due to Medical Conditions or Safety Concerns. Bed Mobility: 6 Transfers (B,C,W/C): 6 Gait: 6 Stairs: 6 Pt reportedly fully (I) prior to this incident. PT Evaluation-Current Subjective Pt admitted via EMS with psychosis due to drug use. Objective Patient Orientation: Mumbles Attachments: IV ROM/Strength Strength Upper Extremities gross 5/5 (B) LEs; pt is writhing with intermittent voluntary motion of the UE and LEs. Transfers Sit to Lying (QC): 4 Lying to Sitting/Side of Bed(Q: 4 Sit to Stand (QC): 4 Pt able to come to sitting at the edge of bed with Minimal assistance and much encouragement. He is having some delusion which resulted in some impulsive behaviors. Pt had a moment of panic and quickly placed himself back into bed without any assistance. Pt is a fall risk due to poor judgment. Gait Does the Patient Walk?: Yes Distance: 10ft Gait Assistive Device: None Comments/Gait Description Poor safety. Pt took roughly 10 steps and then quickly went back to the bed indicating he was afraid of something. During gait he was Min A for stability. Balance Sitting Static: Good Standing Static: Fair Standing Dynamic: Fair Assessment/Needs Pt has sufficient strength to perform independent mobility and gait but his me ntal state places him at a risk for fall. He could function physically for all mobility but would require supervision for safety. Rehab Potential: Poor Post Rehab Potential-Barriers: Mental state of mind will not allow for education on safety PT [facility] Goals Barrel Cooper Goals PT [facility] Goals Time Frame: Sep 14, 2022 Roll Left & Right (QC): 6 Sit to Lying (QC): 6 Lying-Sitting on Side/Bed(QC): 6 Sit to Stand (QC): 6 Chair/Keu-rw-Vzlgc Xfer(QC): 6 Toilet Transfer (QC): 6 Car Transfer (QC): 6 Walk 150 ft (QC): 6 4 Steps (QC): 6 Does the Pt use WC or Scooter?: No PT Plan Problem List Problem List: Safety, Gait Treatment/Plan Treatment Plan: Continue Plan of Care Treatment Duration: Sep 14, 2022 Frequency: 6 times per week Safety Risks/Education Patient Education: Gait Training, Safety Issues Time Time In: 1230 Time Out: 1248 DATE: Sep 12, 2022 Total Billed Treatment Time: 18 Total Billed Treatment 1, poppy moderate complexity 18 min TRAVIS CHERRY PT Sep 12, 2022 12:43
[2022-09-12] MEDS ORDERED: ENOXAPARIN INJECTION 30 MG/0.3 ML SYR SC SCH (14:00)
[2022-09-12 16:46] VITALS: BP 145/89
== END 2022-09-12 21:30 | disposition home or self-care (01) ==
LOC: EDUNIT# 06:23 → ER 06:39 → ICU 12:01 → UNDOADMOB 12:01 → ICU 12:06 → CSD 09-12 → ICU 09-12 → UNDODISOB 09-12 21:30
PROVIDERS: ADMIT Internal Medicine; ATTEND Internal Medicine
DX: F15.23 Other stimulant dependence with withdrawal (principal); F19.29 Other psychoactive substance dependence with unspecified psychoactive substance-induced disorder; R45.6 Violent behavior; R45.1 Restlessness and agitation; R45.851 Suicidal ideations
CPT/HCPCS: 80053; 82550; 83735; 85025; 86141; 87081; G0480; 36415; 80320; 96361; 96372; 99285; G0378